=== PATIENT | male | born 1950 | race Caucasian/White ===

== ENCOUNTER 2017-10-11 17:44 | Inpatient (IN) | payer MEDICARE, MEDICAID ==
[2017-10-11] VITALS (8 sets, daily range): BP systolic 103–124; BP diastolic 58–65
[~2017-10-11] VITALS: Ht 167.6 cm; Wt 80.6 kg
[~2017-10-11 17:44] MED LIST: AMLO1CAP59 PO; ASPI-12 PO; BUSP10TA11 PO; CLOP75TA35 PO; DESV100T PO; GABA-338 PO; HYDR-565 PO; HYDR12.522 PO; HYT1T PO; IMD30T PO; LANTUS SQ; LISI40TA4 PO; LORA10TA7 PO; METF500T PO; MORP30TA60 PO; NITR0.4T51 SL; SIN10C PO; TRAZ-91 PO
[2017-10-11 18:34] LABS: BASOPHILS % (AUTO) 0.1 % (0-1); EOSINOPHILS # (AUTO) 0.1 X10'3 (0-0.9); EOSINOPHILS % (AUTO) 1.5 % (0-6); HEMATOCRIT 25.4 % (42.0-52.0); HEMOGLOBIN 7.5 g/dl (14.0-17.9); MEAN CORPUSCULAR HEMOGLOBIN 21.2 PG (27.0-31.0); MEAN CORPUSCULAR HGB CONC 29.6 % (33.0-36.5); MEAN CORPUSCULAR VOLUME 71.7 FL (78-98); MEAN PLATELET VOLUME 9.6 FL (7.4-10.4); MONOCYTES # (AUTO) 0.3 X10'3 (0-0.9); MONOCYTES % (AUTO) 3.2 % (2-12); NEUTROPHILS # (AUTO) 8.3 X10'3 (1.8-7.7); NEUTROPHILS % (AUTO) 85.2 % (42-75); PLATELET COUNT 307 X10'3 (140-440); RED BLOOD COUNT 3.54 X10'6 (4.70-6.10); RED CELL DISTRIBUTION WIDTH 21.7 % (11.5-14.5); WHITE BLOOD COUNT 9.8 X10'3 (4.5-11.0)
[2017-10-11 18:40] LABS: PARTIAL THROMBOPLASTIN TIME 25 SECONDS (22-32); PROTHROMBIN TIME 10.6 SECONDS (9.0-12.0)
[2017-10-11 18:44] LABS: ALANINE AMINOTRANSFERASE 135 U/L (12-78); ALBUMIN 2.3 G/DL (3.4-5.0); ALBUMIN/GLOBULIN RATIO 0.5 (1.1-1.5); ALKALINE PHOSPHATASE 266 IU/L (46-116); ANION GAP 7 (8-16); ASPARTATE AMINO TRANSFERASE 141 U/L (10-37); BILIRUBIN,TOTAL 0.2 MG/DL (0.1-1.0); BLOOD UREA NITROGEN 20 MG/DL (7-18); BUN/CREATININE RATIO 17.4 (5.4-32.0); CALCIUM 8.1 MG/DL (8.5-10.1); CHLORIDE 106 MMOL/L (99-107); CREATININE 1.15 MG/DL (0.60-1.10); GLUCOSE 178 MG/DL (70-104); POTASSIUM 4.3 MMOL/L (3.5-5.1); SODIUM 143 MMOL/L (135-145); TOTAL CARBON DIOXIDE 30.1 MMOL/L (24-32); TOTAL PROTEIN 6.7 G/DL (6.4-8.2); eGFR 64 ML/MIN
[2017-10-11 18:51] LABS: MAGNESIUM 1.6 MG/DL (1.5-2.4)
[2017-10-11] MEDS ORDERED: morphine sulfate 8 MG/ML SYRINGE IV ONE (19:05)
[2017-10-11] MEDS ORDERED: normal saline 1000ML IV soln IVB ONE (19:10)
[2017-10-11] MEDS ORDERED: acetaminophen 325mg tablet PO PRN ×2 (19:40)
[2017-10-11] MEDS ORDERED: magnesium hydroxide 30ml (MOM) UD suspension PO PRN (19:40)
[2017-10-11] MEDS ORDERED: ondansetron/PF 4mg/2ml inj IV PRN (19:40)
[2017-10-11 20:19] LABS: ETHANOL < 0.010 GM/DL (0.0-0.010)
[2017-10-11] MEDS: morphine sulfate 8 MG/ML SYRINGE IV PRN ×3 (21:55→23:03)
[2017-10-11] MEDS ORDERED: nitroGLYCERIN 0.4mg SUBLingual tab SL PRN (23:00)
[2017-10-12] VITALS (25 sets, daily range): BP systolic 96–126; BP diastolic 48–83
[2017-10-12] MEDS: morphine sulfate 8 MG/ML SYRINGE IV PRN ×6 (01:01→22:06)
[2017-10-12 05:31] LABS: BASOPHILS % (AUTO) 0.2 % (0-1); EOSINOPHILS # (AUTO) 0.4 X10'3 (0-0.9); EOSINOPHILS % (AUTO) 2.8 % (0-6); HEMATOCRIT 31.5 % (42.0-52.0); HEMOGLOBIN 9.7 g/dl (14.0-17.9); LYMPHOCYTES # (AUTO) 1.4 X10'3 (1.1-4.8); LYMPHOCYTES % (AUTO) 10.7 % (21-51); MEAN CORPUSCULAR HEMOGLOBIN 23.4 PG (27.0-31.0); MEAN CORPUSCULAR HGB CONC 30.8 % (33.0-36.5); MEAN CORPUSCULAR VOLUME 76.1 FL (78-98); MEAN PLATELET VOLUME 9.7 FL (7.4-10.4); MONOCYTES % (AUTO) 7.7 % (2-12); NEUTROPHILS # (AUTO) 10.2 X10'3 (1.8-7.7); NEUTROPHILS % (AUTO) 78.6 % (42-75); PLATELET COUNT 280 X10'3 (140-440); RED BLOOD COUNT 4.14 X10'6 (4.70-6.10); RED CELL DISTRIBUTION WIDTH 21.8 % (11.5-14.5)
[2017-10-12 05:40] LABS: PARTIAL THROMBOPLASTIN TIME 26 SECONDS (22-32); PROTHROMBIN TIME 10.6 SECONDS (9.0-12.0)
[2017-10-12 05:44] LABS: HEMOGLOBIN A1C 5.7 % (4.5-6.2)
[2017-10-12 06:03] LABS: ALBUMIN 2.3 G/DL (3.4-5.0); ANION GAP 6 (8-16); BLOOD UREA NITROGEN 20 MG/DL (7-18); BUN/CREATININE RATIO 17.2 (5.4-32.0); CALCIUM 7.8 MG/DL (8.5-10.1); CHLORIDE 108 MMOL/L (99-107); CREATININE 1.16 MG/DL (0.60-1.10); GLUCOSE 115 MG/DL (70-104); POTASSIUM 4.3 MMOL/L (3.5-5.1); SODIUM 143 MMOL/L (135-145); TOTAL CARBON DIOXIDE 28.7 MMOL/L (24-32); eGFR 63 ML/MIN
[2017-10-12] MEDS: CefTRIAXone 2gm/NS 100ml IVPB 100 ML IV SCH (07:49)
[2017-10-12] MEDS: busPIRone 5mg tablet PO SCH ×2 (07:49→19:32)
[2017-10-12] MEDS: lisinopril 10 MG tablet PO SCH (07:49)
[2017-10-12] MEDS: loratadine 10mg tablet PO SCH (07:50)
[2017-10-12] MEDS: metFORMIN 500mg tablet PO SCH ×2 (07:50→19:32)
[2017-10-12] MEDS: gabapentin 300mg capsule PO SCH ×3 (07:50→21:04)
[2017-10-12] MEDS: pantoprazole 40mg Tablet.DR PO SCH (07:50)
[2017-10-12] MEDS ORDERED: morphine ER 30mg tablet PO SCH (08:00)
[2017-10-12] MEDS: Terazosin 1mg capsule PO SCH (08:00)
[2017-10-12] MEDS ORDERED: traZODone 50mg tablet PO SCH (08:00)
[2017-10-12] MEDS ORDERED: amLODIPine 5mg tablet PO SCH (08:00)
[2017-10-12] MEDS ORDERED: HYDROchlorothiazide 12.5mg capsule PO SCH (08:00)
[2017-10-12] MEDS ORDERED: morphine ER 100mg tablet PO SCH (08:56)
[2017-10-12] MEDS: azithromycin 250mg tablet PO SCH (10:56)
[2017-10-12 12:03] LABS: TOTAL PROTEIN,BODY FLUID 4.7 G/DL
[2017-10-12] MEDS: isosorbide mononitrate 30mg tab.SR.24H PO SCH (12:20)
[2017-10-12] MEDS: lactobacillus rhamnosus 10,000 MMU CELLS/CAPSULE PO SCH (17:01)
[2017-10-12] MEDS: doxepin 10mg capsule PO SCH (21:04)
[2017-10-12] MEDS: traZODone 50mg tablet PO SCH (21:04)
[2017-10-12] MEDS: Insulin Detemir pen SQ SCH (21:12)
[2017-10-13] VITALS (23 sets, daily range): BP systolic 94–129; BP diastolic 50–67
[2017-10-13] MEDS: morphine sulfate 8 MG/ML SYRINGE IV PRN ×5 (04:36→20:43)
[2017-10-13] MEDS ORDERED: dextrose 50%-water 50ml dispensing syringe IV ONE ×2 (07:30)
[2017-10-13] MEDS: lactobacillus rhamnosus 10,000 MMU CELLS/CAPSULE PO SCH ×2 (08:12→18:04)
[2017-10-13] MEDS: busPIRone 5mg tablet PO SCH ×2 (08:12→20:24)
[2017-10-13] MEDS: CefTRIAXone 2gm/NS 100ml IVPB 100 ML IV SCH (08:12)
[2017-10-13] MEDS: pantoprazole 40mg Tablet.DR PO SCH (08:12)
[2017-10-13] MEDS: loratadine 10mg tablet PO SCH (08:12)
[2017-10-13] MEDS: Terazosin 1mg capsule PO SCH (08:14)
[2017-10-13] MEDS: azithromycin 250mg tablet PO SCH (08:14)
[2017-10-13] MEDS: gabapentin 300mg capsule PO SCH ×3 (08:14→20:25)
[2017-10-13 08:40] LABS: BASOPHILS % (AUTO) 0.1 % (0-1); EOSINOPHILS # (AUTO) 0.3 X10'3 (0-0.9); EOSINOPHILS % (AUTO) 3.2 % (0-6); HEMATOCRIT 28.1 % (42.0-52.0); HEMOGLOBIN 8.6 g/dl (14.0-17.9); LYMPHOCYTES # (AUTO) 1.2 X10'3 (1.1-4.8); LYMPHOCYTES % (AUTO) 12.2 % (21-51); MEAN CORPUSCULAR HEMOGLOBIN 23.3 PG (27.0-31.0); MEAN CORPUSCULAR HGB CONC 30.4 % (33.0-36.5); MEAN CORPUSCULAR VOLUME 76.4 FL (78-98); MEAN PLATELET VOLUME 9.6 FL (7.4-10.4); MONOCYTES # (AUTO) 0.6 X10'3 (0-0.9); MONOCYTES % (AUTO) 6.6 % (2-12); NEUTROPHILS # (AUTO) 7.5 X10'3 (1.8-7.7); NEUTROPHILS % (AUTO) 77.9 % (42-75); PLATELET COUNT 267 X10'3 (140-440); RED BLOOD COUNT 3.68 X10'6 (4.70-6.10); WHITE BLOOD COUNT 9.6 X10'3 (4.5-11.0)
[2017-10-13 08:57] LABS: ALANINE AMINOTRANSFERASE 129 U/L (12-78); ALBUMIN 2.1 G/DL (3.4-5.0); ALBUMIN/GLOBULIN RATIO 0.5 (1.1-1.5); ALKALINE PHOSPHATASE 222 IU/L (46-116); ANION GAP 4 (8-16); ASPARTATE AMINO TRANSFERASE 152 U/L (10-37); BILIRUBIN,TOTAL 0.3 MG/DL (0.1-1.0); BLOOD UREA NITROGEN 22 MG/DL (7-18); BUN/CREATININE RATIO 19.3 (5.4-32.0); CALCIUM 8.3 MG/DL (8.5-10.1); CHLORIDE 110 MMOL/L (99-107); CREATININE 1.14 MG/DL (0.60-1.10); GLUCOSE 95 MG/DL (70-104); POTASSIUM 4.5 MMOL/L (3.5-5.1); SODIUM 146 MMOL/L (135-145); TOTAL CARBON DIOXIDE 31.9 MMOL/L (24-32); TOTAL PROTEIN 6.2 G/DL (6.4-8.2); eGFR 64 ML/MIN
[2017-10-13] MEDS ORDERED: FLU VACC QS2017-18 36MOS UP/PF 60 MCG/0.5 ML SYRINGE IMVAC ONE (10:00)
[2017-10-13] MEDS: metFORMIN 500mg tablet PO SCH ×2 (10:05→20:24)
[2017-10-13] MEDS: lisinopril 10 MG tablet PO SCH (10:05)
[2017-10-13] MEDS: isosorbide mononitrate 30mg tab.SR.24H PO SCH (10:05)
[2017-10-13] MEDS ORDERED: FLUO-1 PO (11:55)
[2017-10-13] MEDS ORDERED: AMLO5TAB16 PO (11:55)
[2017-10-13] MEDS ORDERED: LEVO50TA8 PO (11:55)
[2017-10-13] MEDS ORDERED: ARIP10TA17 PO (11:55)
[2017-10-13] MEDS ORDERED: TRAZ-146 PO (12:05)
[2017-10-13] MEDS ORDERED: TIOT18CA3 INH (12:05)
[2017-10-13] MEDS ORDERED: FERR240T2 PO (12:05)
[2017-10-13] MEDS ORDERED: PREG150C PO (12:05)
[2017-10-13] MEDS: traZODone 50mg tablet PO SCH (20:25)
[2017-10-13] MEDS: doxepin 10mg capsule PO SCH (20:25)
[2017-10-13] MEDS: Insulin Detemir pen SQ SCH (20:35)
[2017-10-14] VITALS (17 sets, daily range): BP systolic 105–134; BP diastolic 55–68
[2017-10-14] MEDS: morphine sulfate 8 MG/ML SYRINGE IV PRN ×5 (02:46→20:53)
[2017-10-14 05:25] LABS: BASOPHILS % (AUTO) 0.2 % (0-1); EOSINOPHILS # (AUTO) 0.3 X10'3 (0-0.9); EOSINOPHILS % (AUTO) 3.8 % (0-6); HEMATOCRIT 26.2 % (42.0-52.0); LYMPHOCYTES # (AUTO) 0.9 X10'3 (1.1-4.8); LYMPHOCYTES % (AUTO) 12.1 % (21-51); MEAN CORPUSCULAR HEMOGLOBIN 23.3 PG (27.0-31.0); MEAN CORPUSCULAR HGB CONC 30.5 % (33.0-36.5); MEAN CORPUSCULAR VOLUME 76.4 FL (78-98); MEAN PLATELET VOLUME 10.1 FL (7.4-10.4); MONOCYTES # (AUTO) 0.6 X10'3 (0-0.9); MONOCYTES % (AUTO) 7.9 % (2-12); NEUTROPHILS # (AUTO) 5.7 X10'3 (1.8-7.7); PLATELET COUNT 243 X10'3 (140-440); RED BLOOD COUNT 3.43 X10'6 (4.70-6.10); RED CELL DISTRIBUTION WIDTH 21.9 % (11.5-14.5); WHITE BLOOD COUNT 7.5 X10'3 (4.5-11.0)
[2017-10-14 05:39] LABS: ALANINE AMINOTRANSFERASE 118 U/L (12-78); ALBUMIN 1.8 G/DL (3.4-5.0); ALBUMIN/GLOBULIN RATIO 0.5 (1.1-1.5); ALKALINE PHOSPHATASE 208 IU/L (46-116); ANION GAP 6 (8-16); ASPARTATE AMINO TRANSFERASE 143 U/L (10-37); BILIRUBIN,TOTAL 0.3 MG/DL (0.1-1.0); BLOOD UREA NITROGEN 21 MG/DL (7-18); BUN/CREATININE RATIO 21.4 (5.4-32.0); CALCIUM 7.8 MG/DL (8.5-10.1); CHLORIDE 109 MMOL/L (99-107); CREATININE 0.98 MG/DL (0.60-1.10); GLUCOSE 110 MG/DL (70-104); POTASSIUM 3.8 MMOL/L (3.5-5.1); SODIUM 144 MMOL/L (135-145); TOTAL CARBON DIOXIDE 29.4 MMOL/L (24-32); TOTAL PROTEIN 5.8 G/DL (6.4-8.2); eGFR 77 ML/MIN
[2017-10-14] MEDS: CefTRIAXone 2gm/NS 100ml IVPB 100 ML IV SCH (08:48)
[2017-10-14] MEDS: isosorbide mononitrate 30mg tab.SR.24H PO SCH (08:49)
[2017-10-14] MEDS: pantoprazole 40mg Tablet.DR PO SCH (08:49)
[2017-10-14] MEDS: metFORMIN 500mg tablet PO SCH ×2 (08:49→19:24)
[2017-10-14] MEDS: loratadine 10mg tablet PO SCH (08:49)
[2017-10-14] MEDS: lactobacillus rhamnosus 10,000 MMU CELLS/CAPSULE PO SCH ×2 (08:49→16:41)
[2017-10-14] MEDS: busPIRone 5mg tablet PO SCH ×2 (08:49→19:24)
[2017-10-14] MEDS: azithromycin 250mg tablet PO SCH (08:49)
[2017-10-14] MEDS: lisinopril 10 MG tablet PO SCH (08:49)
[2017-10-14] MEDS: Terazosin 1mg capsule PO SCH (08:49)
[2017-10-14] MEDS: gabapentin 300mg capsule PO SCH ×3 (08:49→20:53)
[2017-10-14 11:43] LABS: % IRON SATURATION 4 % (11-46); IRON 11 UG/DL (53-167); TOTAL IRON BINDING CAPACITY 285 UG/DL (259-388)
[2017-10-14] MEDS ORDERED: dextrose 50%-water 50ml dispensing syringe IV PRN ×2 (15:45)
[2017-10-14] MEDS: traZODone 50mg tablet PO SCH (20:53)
[2017-10-14] MEDS: doxepin 10mg capsule PO SCH (21:05)
[2017-10-14] MEDS: Insulin Detemir pen SQ SCH (21:17)
[2017-10-15] MEDS: morphine sulfate 8 MG/ML SYRINGE IV PRN ×2 (00:58→09:07)
[2017-10-15 03:00] VITALS: BP 128/62
[2017-10-15 05:09] LABS: BASOPHILS % (AUTO) 0 % (0-1); EOSINOPHILS # (AUTO) 0.2 X10'3 (0-0.9); EOSINOPHILS % (AUTO) 3.6 % (0-6); HEMATOCRIT 27.3 % (42.0-52.0); HEMOGLOBIN 8.3 g/dl (14.0-17.9); LYMPHOCYTES # (AUTO) 0.7 X10'3 (1.1-4.8); MEAN CORPUSCULAR HEMOGLOBIN 23.1 PG (27.0-31.0); MEAN CORPUSCULAR HGB CONC 30.5 % (33.0-36.5); MEAN CORPUSCULAR VOLUME 75.8 FL (78-98); MEAN PLATELET VOLUME 9.5 FL (7.4-10.4); MONOCYTES # (AUTO) 0.5 X10'3 (0-0.9); MONOCYTES % (AUTO) 7.5 % (2-12); NEUTROPHILS # (AUTO) 5.1 X10'3 (1.8-7.7); NEUTROPHILS % (AUTO) 77.9 % (42-75); PLATELET COUNT 249 X10'3 (140-440); RED CELL DISTRIBUTION WIDTH 21.2 % (11.5-14.5); WHITE BLOOD COUNT 6.5 X10'3 (4.5-11.0)
[2017-10-15 05:29] LABS: ALANINE AMINOTRANSFERASE 125 U/L (12-78); ALBUMIN/GLOBULIN RATIO 0.5 (1.1-1.5); ALKALINE PHOSPHATASE 224 IU/L (46-116); ANION GAP 3 (8-16); ASPARTATE AMINO TRANSFERASE 157 U/L (10-37); BILIRUBIN,TOTAL 0.4 MG/DL (0.1-1.0); BLOOD UREA NITROGEN 20 MG/DL (7-18); BUN/CREATININE RATIO 19.2 (5.4-32.0); CALCIUM 8.1 MG/DL (8.5-10.1); CHLORIDE 109 MMOL/L (99-107); CREATININE 1.04 MG/DL (0.60-1.10); GLUCOSE 109 MG/DL (70-104); POTASSIUM 3.7 MMOL/L (3.5-5.1); SODIUM 144 MMOL/L (135-145); TOTAL CARBON DIOXIDE 32.4 MMOL/L (24-32); TOTAL PROTEIN 6.4 G/DL (6.4-8.2); eGFR 71 ML/MIN
[2017-10-15 06:00] VITALS: BP 136/73
[2017-10-15] MEDS: gabapentin 300mg capsule PO SCH ×3 (07:33→21:56)
[2017-10-15] MEDS: isosorbide mononitrate 30mg tab.SR.24H PO SCH (07:33)
[2017-10-15] MEDS: Terazosin 1mg capsule PO SCH (07:33)
[2017-10-15] MEDS: lactobacillus rhamnosus 10,000 MMU CELLS/CAPSULE PO SCH ×2 (07:33→17:23)
[2017-10-15] MEDS: pantoprazole 40mg Tablet.DR PO SCH (07:33)
[2017-10-15] MEDS: azithromycin 250mg tablet PO SCH (07:33)
[2017-10-15] MEDS: loratadine 10mg tablet PO SCH (07:33)
[2017-10-15] MEDS: lisinopril 10 MG tablet PO SCH (07:33)
[2017-10-15] MEDS: metFORMIN 500mg tablet PO SCH ×2 (07:33→21:57)
[2017-10-15] MEDS: busPIRone 5mg tablet PO SCH ×2 (07:33→21:56)
[2017-10-15 11:00] VITALS: BP 108/53
[2017-10-15 15:00] VITALS: BP 121/59
[2017-10-15 18:00] VITALS: BP 134/67
[2017-10-15] MEDS: doxepin 10mg capsule PO SCH (21:56)
[2017-10-15] MEDS: traZODone 50mg tablet PO SCH (21:57)
[2017-10-15 22:00] VITALS: BP 126/66
[2017-10-15] MEDS: Insulin Detemir pen SQ SCH (22:13)
[2017-10-16 02:00] VITALS: BP 131/66
[2017-10-16 05:23] LABS: BASOPHILS % (AUTO) 0.1 % (0-1); EOSINOPHILS # (AUTO) 0.4 X10'3 (0-0.9); HEMATOCRIT 28.3 % (42.0-52.0); HEMOGLOBIN 8.6 g/dl (14.0-17.9); LYMPHOCYTES % (AUTO) 18.5 % (21-51); MEAN CORPUSCULAR HEMOGLOBIN 22.8 PG (27.0-31.0); MEAN CORPUSCULAR HGB CONC 30.3 % (33.0-36.5); MEAN CORPUSCULAR VOLUME 75.4 FL (78-98); MEAN PLATELET VOLUME 9.6 FL (7.4-10.4); MONOCYTES # (AUTO) 0.6 X10'3 (0-0.9); MONOCYTES % (AUTO) 9.9 % (2-12); NEUTROPHILS # (AUTO) 3.7 X10'3 (1.8-7.7); NEUTROPHILS % (AUTO) 64.5 % (42-75); PLATELET COUNT 272 X10'3 (140-440); RED BLOOD COUNT 3.75 X10'6 (4.70-6.10); RED CELL DISTRIBUTION WIDTH 20.8 % (11.5-14.5); WHITE BLOOD COUNT 5.7 X10'3 (4.5-11.0)
[2017-10-16 05:32] LABS: ALANINE AMINOTRANSFERASE 138 U/L (12-78); ALBUMIN/GLOBULIN RATIO 0.4 (1.1-1.5); ALKALINE PHOSPHATASE 237 IU/L (46-116); ANION GAP 1 (8-16); ASPARTATE AMINO TRANSFERASE 177 U/L (10-37); BILIRUBIN,TOTAL 0.4 MG/DL (0.1-1.0); BLOOD UREA NITROGEN 19 MG/DL (7-18); BUN/CREATININE RATIO 18.8 (5.4-32.0); CHLORIDE 108 MMOL/L (99-107); CREATININE 1.01 MG/DL (0.60-1.10); GLUCOSE 77 MG/DL (70-104); POTASSIUM 4.1 MMOL/L (3.5-5.1); SODIUM 143 MMOL/L (135-145); TOTAL CARBON DIOXIDE 34.5 MMOL/L (24-32); TOTAL PROTEIN 6.7 G/DL (6.4-8.2); eGFR 74 ML/MIN
[2017-10-16 06:00] VITALS: BP 126/60
[2017-10-16] MEDS: gabapentin 300mg capsule PO SCH ×3 (07:33→19:37)
[2017-10-16] MEDS: lisinopril 10 MG tablet PO SCH (07:33)
[2017-10-16] MEDS: lactobacillus rhamnosus 10,000 MMU CELLS/CAPSULE PO SCH ×2 (07:33→17:28)
[2017-10-16] MEDS: pantoprazole 40mg Tablet.DR PO SCH (07:33)
[2017-10-16] MEDS: metFORMIN 500mg tablet PO SCH ×2 (07:33→19:37)
[2017-10-16] MEDS: Terazosin 1mg capsule PO SCH (07:33)
[2017-10-16] MEDS: loratadine 10mg tablet PO SCH (07:33)
[2017-10-16] MEDS: isosorbide mononitrate 30mg tab.SR.24H PO SCH (07:33)
[2017-10-16] MEDS: busPIRone 5mg tablet PO SCH ×2 (07:37→19:38)
[2017-10-16 11:00] VITALS: BP 144/57
[2017-10-16 15:00] VITALS: BP 127/66
[2017-10-16 18:00] VITALS: BP 130/64
[2017-10-16] MEDS: doxepin 10mg capsule PO SCH (19:37)
[2017-10-16 22:00] VITALS: BP 135/67
[2017-10-16] MEDS: traZODone 50mg tablet PO SCH (22:20)
[2017-10-16] MEDS: Insulin Detemir pen SQ SCH (22:37)
[2017-10-17] VITALS (8 sets, daily range): BP systolic 110–135; BP diastolic 58–73
[2017-10-17 05:35] LABS: ALANINE AMINOTRANSFERASE 147 U/L (12-78); ALBUMIN 2.1 G/DL (3.4-5.0); ALBUMIN/GLOBULIN RATIO 0.4 (1.1-1.5); ALKALINE PHOSPHATASE 255 IU/L (46-116); ANION GAP 3 (8-16); ASPARTATE AMINO TRANSFERASE 193 U/L (10-37); BILIRUBIN,TOTAL 0.4 MG/DL (0.1-1.0); BLOOD UREA NITROGEN 19 MG/DL (7-18); BUN/CREATININE RATIO 20.4 (5.4-32.0); CALCIUM 8.1 MG/DL (8.5-10.1); CHLORIDE 106 MMOL/L (99-107); CREATININE 0.93 MG/DL (0.60-1.10); GLUCOSE 80 MG/DL (70-104); POTASSIUM 4.2 MMOL/L (3.5-5.1); SODIUM 142 MMOL/L (135-145); TOTAL CARBON DIOXIDE 32.7 MMOL/L (24-32); eGFR 81 ML/MIN
[2017-10-17 05:44] LABS: BASOPHILS # (AUTO) 0.1 X10'3 (0-0.2); BASOPHILS % (AUTO) 0.9 % (0-1); EOSINOPHILS # (AUTO) 0.3 X10'3 (0-0.9); EOSINOPHILS % (AUTO) 5.1 % (0-6); HEMATOCRIT 29.5 % (42.0-52.0); HEMOGLOBIN 8.9 g/dl (14.0-17.9); LYMPHOCYTES % (AUTO) 16.6 % (21-51); MEAN CORPUSCULAR HEMOGLOBIN 22.7 PG (27.0-31.0); MEAN CORPUSCULAR HGB CONC 30.2 % (33.0-36.5); MEAN CORPUSCULAR VOLUME 75.2 FL (78-98); MEAN PLATELET VOLUME 9.4 FL (7.4-10.4); MONOCYTES # (AUTO) 0.5 X10'3 (0-0.9); MONOCYTES % (AUTO) 8.9 % (2-12); NEUTROPHILS % (AUTO) 68.5 % (42-75); PLATELET COUNT 293 X10'3 (140-440); RED BLOOD COUNT 3.92 X10'6 (4.70-6.10); RED CELL DISTRIBUTION WIDTH 21.4 % (11.5-14.5); WHITE BLOOD COUNT 5.9 X10'3 (4.5-11.0)
[2017-10-17] MEDS: loratadine 10mg tablet PO SCH (07:32)
[2017-10-17] MEDS: lisinopril 10 MG tablet PO SCH (07:33)
[2017-10-17] MEDS: isosorbide mononitrate 30mg tab.SR.24H PO SCH (07:33)
[2017-10-17] MEDS: Terazosin 1mg capsule PO SCH (07:33)
[2017-10-17] MEDS: lactobacillus rhamnosus 10,000 MMU CELLS/CAPSULE PO SCH ×2 (07:33→17:52)
[2017-10-17] MEDS: pantoprazole 40mg Tablet.DR PO SCH (07:33)
[2017-10-17] MEDS: metFORMIN 500mg tablet PO SCH ×2 (07:33→21:14)
[2017-10-17] MEDS: gabapentin 300mg capsule PO SCH ×3 (07:33→21:14)
[2017-10-17] MEDS: busPIRone 5mg tablet PO SCH ×2 (07:34→21:14)
[2017-10-17 10:52] LABS: OCCULT BLOOD STOOL POSITIVE (Neg)
[2017-10-17] MEDS ORDERED: tPA-cathflo 2mg/2ml IV flush 10 MG in normal saline 100ml IV soln 40 ML ICATH ONE (15:10)
[2017-10-17 16:48] LABS: GLUCOSE,BODY FLUID 99 MG/DL; LDH,BODY FLUID 236 U/L
[2017-10-17 17:07] LABS: BF RBC COUNT 8550 /CU MM; BF WBC COUNT 1800 /CU MM (0-1000); BFAPPEAR CLOUDY; BFCOLOR YELLOW; BFVOLUME 65 ML
[2017-10-17 17:20] LABS: EOSINOPHILS,BODY FLUID 6 %; LYMPHOCYTES,BODY FLUID 16 %; MONOCYTES,BODY FLUID 28 %; NEUTROPHILS,BODY FLUID 50 %
[2017-10-17 17:21] LABS: BF MESOTHELIAL CELLS FEW
[2017-10-17] MEDS: Insulin Detemir pen SQ SCH ×2 (21:00→22:18)
[2017-10-17] MEDS: doxepin 10mg capsule PO SCH (21:15)
[2017-10-17] MEDS: traZODone 50mg tablet PO SCH (22:19)
[2017-10-18 03:00] VITALS: BP 127/73
[2017-10-18 05:50] LABS: BASOPHILS % (AUTO) 0.3 % (0-1); EOSINOPHILS # (AUTO) 0.2 X10'3 (0-0.9); HEMATOCRIT 27.1 % (42.0-52.0); HEMOGLOBIN 8.2 g/dl (14.0-17.9); LYMPHOCYTES % (AUTO) 18.6 % (21-51); MEAN CORPUSCULAR HEMOGLOBIN 22.6 PG (27.0-31.0); MEAN CORPUSCULAR HGB CONC 30.1 % (33.0-36.5); MONOCYTES # (AUTO) 0.5 X10'3 (0-0.9); MONOCYTES % (AUTO) 9.5 % (2-12); NEUTROPHILS # (AUTO) 3.6 X10'3 (1.8-7.7); NEUTROPHILS % (AUTO) 67.6 % (42-75); PLATELET COUNT 300 X10'3 (140-440); RED BLOOD COUNT 3.61 X10'6 (4.70-6.10); RED CELL DISTRIBUTION WIDTH 20.8 % (11.5-14.5); WHITE BLOOD COUNT 5.4 X10'3 (4.5-11.0)
[2017-10-18 05:59] LABS: ALANINE AMINOTRANSFERASE 132 U/L (12-78); ALBUMIN 1.9 G/DL (3.4-5.0); ALBUMIN/GLOBULIN RATIO 0.4 (1.1-1.5); ALKALINE PHOSPHATASE 242 IU/L (46-116); ANION GAP 5 (8-16); ASPARTATE AMINO TRANSFERASE 175 U/L (10-37); BILIRUBIN,TOTAL 0.4 MG/DL (0.1-1.0); BLOOD UREA NITROGEN 19 MG/DL (7-18); BUN/CREATININE RATIO 22.4 (5.4-32.0); CALCIUM 8.1 MG/DL (8.5-10.1); CHLORIDE 107 MMOL/L (99-107); CREATININE 0.85 MG/DL (0.60-1.10); GLUCOSE 79 MG/DL (70-104); POTASSIUM 4.1 MMOL/L (3.5-5.1); SODIUM 144 MMOL/L (135-145); TOTAL CARBON DIOXIDE 32.1 MMOL/L (24-32); TOTAL PROTEIN 6.2 G/DL (6.4-8.2); eGFR 90 ML/MIN
[2017-10-18 06:00] VITALS: BP 138/70
[2017-10-18] MEDS: lisinopril 10 MG tablet PO SCH (08:11)
[2017-10-18] MEDS: pantoprazole 40mg Tablet.DR PO SCH (08:11)
[2017-10-18] MEDS: Terazosin 1mg capsule PO SCH (08:11)
[2017-10-18] MEDS: gabapentin 300mg capsule PO SCH ×3 (08:11→21:26)
[2017-10-18] MEDS: busPIRone 5mg tablet PO SCH ×2 (08:11→20:06)
[2017-10-18] MEDS: lactobacillus rhamnosus 10,000 MMU CELLS/CAPSULE PO SCH ×2 (08:11→17:19)
[2017-10-18] MEDS: metFORMIN 500mg tablet PO SCH ×2 (08:11→20:06)
[2017-10-18] MEDS: loratadine 10mg tablet PO SCH (08:22)
[2017-10-18] MEDS: isosorbide mononitrate 30mg tab.SR.24H PO SCH (08:22)
[2017-10-18 11:00] VITALS: BP 114/59
[2017-10-18 14:33] LABS: % IRON SATURATION 5 % (11-46); IRON 13 UG/DL (53-167); TOTAL IRON BINDING CAPACITY 286 UG/DL (259-388)
[2017-10-18 15:00] VITALS: BP 155/59
[2017-10-18 19:00] VITALS: BP 124/59
[2017-10-18] MEDS: Insulin Detemir pen SQ SCH ×2 (21:00)
[2017-10-18] MEDS: traZODone 50mg tablet PO SCH (21:26)
[2017-10-18] MEDS: doxepin 10mg capsule PO SCH (21:26)
[2017-10-18] MEDS: diatr meglu/diatrizoate 30ml oral sol.-(3 dose) bottle PO SCH (21:26)
[2017-10-18 23:00] VITALS: BP 142/69
[2017-10-19 03:00] VITALS: BP 139/63
[2017-10-19 06:30] VITALS: BP 138/69
[2017-10-19 07:05] LABS: BASOPHILS % (AUTO) 0.2 % (0-1); EOSINOPHILS # (AUTO) 0.2 X10'3 (0-0.9); EOSINOPHILS % (AUTO) 4.2 % (0-6); HEMATOCRIT 29.5 % (42.0-52.0); HEMOGLOBIN 8.9 g/dl (14.0-17.9); LYMPHOCYTES # (AUTO) 1.1 X10'3 (1.1-4.8); LYMPHOCYTES % (AUTO) 19.9 % (21-51); MEAN CORPUSCULAR HEMOGLOBIN 22.5 PG (27.0-31.0); MEAN CORPUSCULAR HGB CONC 30.3 % (33.0-36.5); MEAN CORPUSCULAR VOLUME 74.4 FL (78-98); MONOCYTES # (AUTO) 0.4 X10'3 (0-0.9); MONOCYTES % (AUTO) 7.6 % (2-12); NEUTROPHILS # (AUTO) 3.8 X10'3 (1.8-7.7); NEUTROPHILS % (AUTO) 68.1 % (42-75); PLATELET COUNT 322 X10'3 (140-440); RED BLOOD COUNT 3.96 X10'6 (4.70-6.10); WHITE BLOOD COUNT 5.5 X10'3 (4.5-11.0)
[2017-10-19 07:45] LABS: ALBUMIN 2.1 G/DL (3.4-5.0); ANION GAP 3 (8-16); BLOOD UREA NITROGEN 18 MG/DL (7-18); BUN/CREATININE RATIO 16.8 (5.4-32.0); CALCIUM 8.3 MG/DL (8.5-10.1); CHLORIDE 105 MMOL/L (99-107); CREATININE 1.07 MG/DL (0.60-1.10); GLUCOSE 101 MG/DL (70-104); POTASSIUM 4.4 MMOL/L (3.5-5.1); SODIUM 143 MMOL/L (135-145); TOTAL CARBON DIOXIDE 34.7 MMOL/L (24-32); eGFR 69 ML/MIN
[2017-10-19] MEDS: metFORMIN 500mg tablet PO SCH (07:46)
[2017-10-19] MEDS: loratadine 10mg tablet PO SCH (07:46)
[2017-10-19] MEDS: diatr meglu/diatrizoate 30ml oral sol.-(3 dose) bottle PO SCH ×2 (07:46→11:11)
[2017-10-19] MEDS: busPIRone 5mg tablet PO SCH ×2 (07:46→20:55)
[2017-10-19] MEDS: gabapentin 300mg capsule PO SCH ×3 (07:46→20:55)
[2017-10-19] MEDS: pantoprazole 40mg Tablet.DR PO SCH (07:46)
[2017-10-19] MEDS: lactobacillus rhamnosus 10,000 MMU CELLS/CAPSULE PO SCH ×2 (07:46→16:35)
[2017-10-19] MEDS: isosorbide mononitrate 30mg tab.SR.24H PO SCH (07:46)
[2017-10-19] MEDS: Terazosin 1mg capsule PO SCH (07:46)
[2017-10-19] MEDS: lisinopril 10 MG tablet PO SCH (07:46)
[2017-10-19] MEDS ORDERED: iohexol 300mg/ml 100ml inj. ONE (10:23)
[2017-10-19] MEDS ORDERED: PEG 3350/Na sulf,bicarb,Cl/KCl oral sol 4 liter bottle PO ONE (11:25)
[2017-10-19 11:30] VITALS: BP 117/60
[2017-10-19] MEDS: MESSAGE TO NURSING PO SCH ×2 (11:56→20:00)
[2017-10-19 16:20] VITALS: BP 122/63
[2017-10-19 19:00] VITALS: BP 129/69
[2017-10-19] MEDS: doxepin 10mg capsule PO SCH (20:55)
[2017-10-19] MEDS: traZODone 50mg tablet PO SCH (20:55)
[2017-10-19] MEDS: Insulin Detemir pen SQ SCH ×2 (21:00)
[2017-10-19 23:00] VITALS: BP 137/71
[2017-10-20] VITALS (18 sets, daily range): BP systolic 104–143; BP diastolic 5–88
[2017-10-20 05:10] LABS: BASOPHILS % (AUTO) 0.6 % (0-1); EOSINOPHILS # (AUTO) 0.2 X10'3 (0-0.9); EOSINOPHILS % (AUTO) 3.8 % (0-6); HEMATOCRIT 29.6 % (42.0-52.0); LYMPHOCYTES # (AUTO) 0.7 X10'3 (1.1-4.8); LYMPHOCYTES % (AUTO) 12.9 % (21-51); MEAN CORPUSCULAR HEMOGLOBIN 22.4 PG (27.0-31.0); MEAN CORPUSCULAR HGB CONC 30.5 % (33.0-36.5); MEAN CORPUSCULAR VOLUME 73.4 FL (78-98); MEAN PLATELET VOLUME 9.2 FL (7.4-10.4); MONOCYTES # (AUTO) 0.4 X10'3 (0-0.9); MONOCYTES % (AUTO) 7.6 % (2-12); NEUTROPHILS # (AUTO) 3.9 X10'3 (1.8-7.7); NEUTROPHILS % (AUTO) 75.1 % (42-75); PLATELET COUNT 318 X10'3 (140-440); RED BLOOD COUNT 4.03 X10'6 (4.70-6.10); RED CELL DISTRIBUTION WIDTH 21.8 % (11.5-14.5); WHITE BLOOD COUNT 5.2 X10'3 (4.5-11.0)
[2017-10-20 05:32] LABS: ALBUMIN 2.2 G/DL (3.4-5.0); ANION GAP 4 (8-16); BLOOD UREA NITROGEN 13 MG/DL (7-18); BUN/CREATININE RATIO 16.5 (5.4-32.0); CALCIUM 8.2 MG/DL (8.5-10.1); CHLORIDE 104 MMOL/L (99-107); CREATININE 0.79 MG/DL (0.60-1.10); GLUCOSE 113 MG/DL (70-104); POTASSIUM 4.1 MMOL/L (3.5-5.1); SODIUM 141 MMOL/L (135-145); TOTAL CARBON DIOXIDE 32.7 MMOL/L (24-32); eGFR > 90 ML/MIN
[2017-10-20] MEDS: isosorbide mononitrate 30mg tab.SR.24H PO SCH (07:49)
[2017-10-20] MEDS: lactobacillus rhamnosus 10,000 MMU CELLS/CAPSULE PO SCH ×2 (07:49→17:30)
[2017-10-20] MEDS: loratadine 10mg tablet PO SCH (07:49)
[2017-10-20] MEDS: Terazosin 1mg capsule PO SCH (07:49)
[2017-10-20] MEDS: lisinopril 10 MG tablet PO SCH (07:49)
[2017-10-20] MEDS: pantoprazole 40mg Tablet.DR PO SCH (07:49)
[2017-10-20] MEDS: busPIRone 5mg tablet PO SCH ×2 (07:49→20:27)
[2017-10-20] MEDS: gabapentin 300mg capsule PO SCH ×3 (07:49→20:27)
[2017-10-20] MEDS: MESSAGE TO NURSING PO SCH ×2 (08:00→20:00)
[2017-10-20] MEDS ORDERED: normal saline 1000ml 1,000 ML IV SCH (15:17)
[2017-10-20] MEDS ORDERED: simethicone 40mg/0.6ml oral drops 30ml MC ONE (15:20)
[2017-10-20] MEDS ORDERED: fentaNYL/PF 50MCG/1 ML 2ML syringe IV PRN (15:20)
[2017-10-20] MEDS ORDERED: MIDAZolam 5mg/5ml vial IV PRN (15:20)
[2017-10-20] MEDS ORDERED: fentaNYL/PF 50MCG/1 ML 2ML syringe ONE (15:26)
[2017-10-20] MEDS ORDERED: MIDAZolam 1mg/ml 10ml vial ONE (15:26)
[2017-10-20] MEDS ORDERED: LIDOcaine Viscous 15ml cup ONE (16:25)
[2017-10-20] MEDS: traZODone 50mg tablet PO SCH (20:27)
[2017-10-20] MEDS: doxepin 10mg capsule PO SCH (20:27)
[2017-10-20] MEDS: Insulin Detemir pen SQ SCH (21:00)
[2017-10-21 03:00] VITALS: BP 133/65
[2017-10-21 06:05] LABS: BASOPHILS % (AUTO) 0.4 % (0-1); EOSINOPHILS # (AUTO) 0.1 X10'3 (0-0.9); EOSINOPHILS % (AUTO) 2.8 % (0-6); HEMATOCRIT 28.2 % (42.0-52.0); HEMOGLOBIN 8.5 g/dl (14.0-17.9); LYMPHOCYTES # (AUTO) 0.9 X10'3 (1.1-4.8); LYMPHOCYTES % (AUTO) 17.8 % (21-51); MEAN CORPUSCULAR HEMOGLOBIN 22.3 PG (27.0-31.0); MEAN CORPUSCULAR HGB CONC 30.2 % (33.0-36.5); MEAN CORPUSCULAR VOLUME 73.6 FL (78-98); MEAN PLATELET VOLUME 9.2 FL (7.4-10.4); MONOCYTES # (AUTO) 0.4 X10'3 (0-0.9); MONOCYTES % (AUTO) 7.4 % (2-12); NEUTROPHILS # (AUTO) 3.5 X10'3 (1.8-7.7); NEUTROPHILS % (AUTO) 71.6 % (42-75); PLATELET COUNT 340 X10'3 (140-440); RED BLOOD COUNT 3.83 X10'6 (4.70-6.10); RED CELL DISTRIBUTION WIDTH 21.4 % (11.5-14.5); WHITE BLOOD COUNT 4.9 X10'3 (4.5-11.0)
[2017-10-21 06:24] LABS: ALBUMIN 2.1 G/DL (3.4-5.0); ANION GAP 3 (8-16); BLOOD UREA NITROGEN 11 MG/DL (7-18); BUN/CREATININE RATIO 12.2 (5.4-32.0); CALCIUM 7.9 MG/DL (8.5-10.1); CHLORIDE 107 MMOL/L (99-107); GLUCOSE 88 MG/DL (70-104); POTASSIUM 4.1 MMOL/L (3.5-5.1); SODIUM 145 MMOL/L (135-145); TOTAL CARBON DIOXIDE 34.7 MMOL/L (24-32); eGFR 84 ML/MIN
[2017-10-21 07:00] VITALS: BP 135/69
[2017-10-21] MEDS: loratadine 10mg tablet PO SCH (07:56)
[2017-10-21] MEDS: busPIRone 5mg tablet PO SCH ×2 (07:56→20:44)
[2017-10-21] MEDS: isosorbide mononitrate 30mg tab.SR.24H PO SCH (07:57)
[2017-10-21] MEDS: lisinopril 10 MG tablet PO SCH (07:57)
[2017-10-21] MEDS: pantoprazole 40mg Tablet.DR PO SCH (07:57)
[2017-10-21] MEDS: gabapentin 300mg capsule PO SCH ×3 (07:57→20:45)
[2017-10-21] MEDS: Terazosin 1mg capsule PO SCH (07:57)
[2017-10-21] MEDS: lactobacillus rhamnosus 10,000 MMU CELLS/CAPSULE PO SCH ×2 (07:58→17:30)
[2017-10-21] MEDS: MESSAGE TO NURSING PO SCH ×2 (08:00→20:00)
[2017-10-21 11:00] VITALS: BP 112/61
[2017-10-21 15:00] VITALS: BP 103/54
[2017-10-21 19:00] VITALS: BP 123/60
[2017-10-21] MEDS: doxepin 10mg capsule PO SCH (20:44)
[2017-10-21] MEDS: metFORMIN 500mg tablet PO SCH (20:44)
[2017-10-21] MEDS: traZODone 50mg tablet PO SCH (20:45)
[2017-10-21] MEDS: Insulin Detemir pen SQ SCH (20:49)
[2017-10-21 23:00] VITALS: BP 139/72
[2017-10-22 03:00] VITALS: BP 117/60
[2017-10-22 05:47] LABS: BASOPHILS # (AUTO) 0.1 X10'3 (0-0.2); BASOPHILS % (AUTO) 1.1 % (0-1); EOSINOPHILS # (AUTO) 0.2 X10'3 (0-0.9); EOSINOPHILS % (AUTO) 3.8 % (0-6); HEMATOCRIT 26.9 % (42.0-52.0); HEMOGLOBIN 8.1 g/dl (14.0-17.9); LYMPHOCYTES # (AUTO) 1.1 X10'3 (1.1-4.8); LYMPHOCYTES % (AUTO) 17.7 % (21-51); MEAN CORPUSCULAR HGB CONC 30.1 % (33.0-36.5); MEAN PLATELET VOLUME 8.7 FL (7.4-10.4); MONOCYTES # (AUTO) 0.5 X10'3 (0-0.9); NEUTROPHILS # (AUTO) 4.1 X10'3 (1.8-7.7); NEUTROPHILS % (AUTO) 68.4 % (42-75); PLATELET COUNT 352 X10'3 (140-440); RED BLOOD COUNT 3.69 X10'6 (4.70-6.10); RED CELL DISTRIBUTION WIDTH 21.6 % (11.5-14.5)
[2017-10-22 06:00] VITALS: BP 140/71
[2017-10-22 07:26] LABS: ALBUMIN 1.9 G/DL (3.4-5.0); ANION GAP 4 (8-16); BLOOD UREA NITROGEN 11 MG/DL (7-18); CALCIUM 7.8 MG/DL (8.5-10.1); CHLORIDE 106 MMOL/L (99-107); GLUCOSE 97 MG/DL (70-104); SODIUM 143 MMOL/L (135-145); TOTAL CARBON DIOXIDE 32.9 MMOL/L (24-32); eGFR 75 ML/MIN
[2017-10-22] MEDS: gabapentin 300mg capsule PO SCH (08:44)
[2017-10-22] MEDS: pantoprazole 40mg Tablet.DR PO SCH (08:44)
[2017-10-22] MEDS: Terazosin 1mg capsule PO SCH (08:44)
[2017-10-22] MEDS: loratadine 10mg tablet PO SCH (08:44)
[2017-10-22] MEDS: busPIRone 5mg tablet PO SCH (08:44)
[2017-10-22] MEDS: isosorbide mononitrate 30mg tab.SR.24H PO SCH (08:45)
[2017-10-22] MEDS: lactobacillus rhamnosus 10,000 MMU CELLS/CAPSULE PO SCH (08:45)
[2017-10-22] MEDS: lisinopril 10 MG tablet PO SCH (08:45)
[2017-10-22] MEDS: metFORMIN 500mg tablet PO SCH (08:45)
[2017-10-22 11:00] VITALS: BP 122/61
[2017-10-22] MEDS ORDERED: LISI10TA4 PO (12:36)
[2017-10-23] MEDS ORDERED: LACTOBACILLUS RHAMNOSUS GG 15 billion unit sprinkle caps PO SCH (07:30)
== END 2017-10-22 13:55 | disposition home or self-care (01) | DRG 199 ==
LOC: ER 17:44 → ED HOLD 19:53 → CICU 2S 23:20 → PCU 3S 10-14 12:10
PROVIDERS: ADMIT Family Medicine; ATTEND Internal Medicine Critical Care Medicine
PROC: 5A09357 Assistance with Respiratory Ventilation, Less than 24 Consecutive Hours, Continuous Positive Airway Pressure (ICD-10-PCS; 2017-10-11)
PROC: 30233N1 Transfusion of Nonautologous Red Blood Cells into Peripheral Vein, Percutaneous Approach (ICD-10-PCS; 2017-10-11)
PROC: 0W9930Z Drainage of Right Pleural Cavity with Drainage Device, Percutaneous Approach (ICD-10-PCS; principal; 2017-10-17)
PROC: 3E0L3GC Introduction of Other Therapeutic Substance into Pleural Cavity, Percutaneous Approach (ICD-10-PCS; 2017-10-17)
PROC: BW251ZZ Computerized Tomography (CT Scan) of Chest, Abdomen and Pelvis using Low Osmolar Contrast (ICD-10-PCS; 2017-10-19)
PROC: 0DBK8ZX Excision of Ascending Colon, Via Natural or Artificial Opening Endoscopic, Diagnostic (ICD-10-PCS; 2017-10-20)
PROC: 0DBL8ZX Excision of Transverse Colon, Via Natural or Artificial Opening Endoscopic, Diagnostic (ICD-10-PCS; 2017-10-20)
PROC: 0DBH8ZX Excision of Cecum, Via Natural or Artificial Opening Endoscopic, Diagnostic (ICD-10-PCS; 2017-10-20)
PROC: 0D568ZZ Destruction of Stomach, Via Natural or Artificial Opening Endoscopic (ICD-10-PCS; 2017-10-20)
DX: J93.9 Pneumothorax, unspecified (principal); J18.1 Lobar pneumonia, unspecified organism; J90 Pleural effusion, not elsewhere classified; E11.42 Type 2 diabetes mellitus with diabetic polyneuropathy; K92.2 Gastrointestinal hemorrhage, unspecified; J94.8 Other specified pleural conditions; J98.19 Other pulmonary collapse; J43.2 Centrilobular emphysema; K74.60 Unspecified cirrhosis of liver; K80.20 Calculus of gallbladder without cholecystitis without obstruction; D12.2 Benign neoplasm of ascending colon; D12.0 Benign neoplasm of cecum; K20.9 Esophagitis, unspecified; K31.819 Angiodysplasia of stomach and duodenum without bleeding; D12.3 Benign neoplasm of transverse colon; K64.8 Other hemorrhoids; D50.0 Iron deficiency anemia secondary to blood loss (chronic); K76.0 Fatty (change of) liver, not elsewhere classified; I10 Essential (primary) hypertension; I25.10 Atherosclerotic heart disease of native coronary artery without angina pectoris; J40 Bronchitis, not specified as acute or chronic; N40.0 Benign prostatic hyperplasia without lower urinary tract symptoms; B19.20 Unspecified viral hepatitis C without hepatic coma; F32.9 Major depressive disorder, single episode, unspecified; F41.9 Anxiety disorder, unspecified; Z79.899 Other long term (current) drug therapy; Z79.4 Long term (current) use of insulin; Z79.82 Long term (current) use of aspirin; Z87.891 Personal history of nicotine dependence; Z23 Encounter for immunization
CPT/HCPCS: 32557; 36415; 45381; 45385; 71010; 71045; 71250; 71260; 73600; 74177; 80048; 80053; 80320; 82272; 82945; 82948; 83036; 83540; 83550; 83615; 83735; 83880; 84145; 84157; 84484; 85025; 85610; 85730; 86885; 86900; 86901; 86920; 87040; 87070; 88108; 88305; 89051; 93005; 96374; 97116; 97161; 97530; 99291; A6212; A6213; A6222; A6223; A6257; A6258; A6402; A6449; G0500; J0696; J1815; J2250; J2270; J2997; J3010; J7030; P9016; Q2037; Q9963; Q9967

== ENCOUNTER 2017-10-26 18:16 | Inpatient (IN) | payer MEDICARE, MEDICAID ==
[~2017-10-26] VITALS: Ht 167.6 cm; Wt 80.0 kg
[~2017-10-26 18:16] MED LIST changes: -AMLO1CAP59 PO; +AMLO5TAB16 PO; +ARIP10TA17 PO; -DESV100T PO; +FERR240T2 PO; +FLUO-1 PO; -GABA-338 PO; -HYDR-565 PO; -HYDR12.522 PO; -IMD30T PO; +LEVO50TA8 PO; +LISI10TA4 PO; -LISI40TA4 PO; -LORA10TA7 PO; -METF500T PO; -MORP30TA60 PO; +PREG150C PO; -SIN10C PO; +TIOT18CA3 INH; +TRAZ-146 PO; -TRAZ-91 PO
[2017-10-26] MEDS ORDERED: aspirin 81mg tab.chew PO ONE (18:25)
[2017-10-26 18:42] LABS: BASOPHILS % (AUTO) 0.2 % (0-1); EOSINOPHILS # (AUTO) 0.2 X10'3 (0-0.9); EOSINOPHILS % (AUTO) 1.3 % (0-6); LYMPHOCYTES % (AUTO) 9.1 % (21-51); MEAN CORPUSCULAR HEMOGLOBIN 22.1 PG (27.0-31.0); MEAN CORPUSCULAR HGB CONC 30.7 % (33.0-36.5); MEAN CORPUSCULAR VOLUME 71.9 FL (78-98); MEAN PLATELET VOLUME 8.3 FL (7.4-10.4); MONOCYTES # (AUTO) 0.7 X10'3 (0-0.9); MONOCYTES % (AUTO) 6.1 % (2-12); NEUTROPHILS # (AUTO) 9.6 X10'3 (1.8-7.7); NEUTROPHILS % (AUTO) 83.3 % (42-75); PLATELET COUNT 390 X10'3 (140-440); RED BLOOD COUNT 3.62 X10'6 (4.70-6.10); RED CELL DISTRIBUTION WIDTH 22.8 % (11.5-14.5); WHITE BLOOD COUNT 11.5 X10'3 (4.5-11.0)
[2017-10-26] MEDS: nitroGLYCERIN 0.4mg SUBLingual tab SL PRN ×2 (18:49→19:48)
[2017-10-26 18:56] LABS: ALANINE AMINOTRANSFERASE 174 U/L (12-78); ALBUMIN 2.4 G/DL (3.4-5.0); ALBUMIN/GLOBULIN RATIO 0.5 (1.1-1.5); ALKALINE PHOSPHATASE 304 IU/L (46-116); ANION GAP 6 (8-16); ASPARTATE AMINO TRANSFERASE 245 U/L (10-37); BILIRUBIN,TOTAL 0.5 MG/DL (0.1-1.0); BLOOD UREA NITROGEN 36 MG/DL (7-18); BUN/CREATININE RATIO 28.3 (5.4-32.0); CALCIUM 8.1 MG/DL (8.5-10.1); CHLORIDE 106 MMOL/L (99-107); CREATININE 1.27 MG/DL (0.60-1.10); GLUCOSE 184 MG/DL (70-104); POTASSIUM 4.3 MMOL/L (3.5-5.1); SODIUM 141 MMOL/L (135-145); TOTAL CARBON DIOXIDE 28.6 MMOL/L (24-32); TOTAL PROTEIN 7.1 G/DL (6.4-8.2); eGFR 57 ML/MIN
[2017-10-26 19:01] LABS: ANISOCYTOSIS 3+; HYPOCHROMASIA 2+; PLATELET ESTIMATE NORMAL; POLYCHROMASIA 2+
[2017-10-26 19:05] LABS: MAGNESIUM 1.8 MG/DL (1.5-2.4)
[2017-10-26] MEDS ORDERED: normal saline 1000ML IV soln IVB ONE (19:05)
[2017-10-26] MEDS ORDERED: iohexol 300mg/ml 100ml inj. ONE (19:16)
[2017-10-26] MEDS: MESSAGE TO NURSING PO SCH (20:00)
[2017-10-26] MEDS ORDERED: vancomycin/NS 1 GM ADD-VANTAGE 250 ML IV ONE (20:50)
[2017-10-26] MEDS ORDERED: piperacillin/tazo 3.375gm/50ml 50 ML IV ONE (20:50)
[2017-10-26] MEDS ORDERED: magnesium hydroxide 30ml (MOM) UD suspension PO PRN (22:35)
[2017-10-26] MEDS ORDERED: ondansetron/PF 4mg/2ml inj IV PRN (22:35)
[2017-10-26] MEDS ORDERED: mag hydrox/Alum hydrox/simeth 30ml oral suspension PO PRN (22:35)
[2017-10-26] MEDS: morphine 2 MG/ML inj. syringe IV PRN (23:05)
[2017-10-26] MEDS ORDERED: glucagon, human recombinant 1mg kit SUBCUT PRN (23:25)
[2017-10-26] MEDS ORDERED: MESSAGE TO PHARMACY PO ONE (23:25)
[2017-10-26] MEDS ORDERED: insulin Lispro (HumaLOG) vial - multi-dose SQ SCH (23:25)
[2017-10-26] MEDS ORDERED: dextrose 50%-water 50ml dispensing syringe IV PRN ×2 (23:25)
[2017-10-26] MEDS ORDERED: dextrose ORAL solution 15 GM/59 ML bottle PO PRN ×2 (23:25)
[2017-10-26 23:35] VITALS: BP 120/65
[2017-10-27] VITALS (12 sets, daily range): BP systolic 96–127; BP diastolic 56–72
[2017-10-27] MEDS: pregabalin 75mg capsule PO SCH ×4 (01:16→20:30)
[2017-10-27] MEDS: busPIRone 5mg tablet PO SCH ×3 (01:17→19:08)
[2017-10-27] MEDS ORDERED: piperacillin/tazo 3.375gm/50ml 50 ML IV ONE (01:29)
[2017-10-27] MEDS: piperacillin/tazo 3.375gm/50ml 50 ML IV SCH ×2 (01:46→09:00)
[2017-10-27] MEDS: morphine 2 MG/ML inj. syringe IV PRN ×4 (02:56→20:31)
[2017-10-27] MEDS: ipratropium 0.5 MG/2.5ML nebule IH SCH ×4 (03:06→21:31)
[2017-10-27] MEDS: MESSAGE TO NURSING PO SCH (07:11)
[2017-10-27] MEDS: aripiprazole 5mg tablet PO SCH (07:32)
[2017-10-27] MEDS: levoTHYROXINE 25mcg tablet PO SCH (07:32)
[2017-10-27] MEDS: FLUoxetine 20mg capsule PO SCH (07:33)
[2017-10-27] MEDS: ferrous gluconate 324mg tablet PO SCH ×2 (07:33→19:08)
[2017-10-27 08:00] LABS: BASOPHILS % (AUTO) 0 % (0-1); EOSINOPHILS # (AUTO) 0.3 X10'3 (0-0.9); EOSINOPHILS % (AUTO) 3.8 % (0-6); HEMATOCRIT 22.6 % (42.0-52.0); LYMPHOCYTES # (AUTO) 1.2 X10'3 (1.1-4.8); LYMPHOCYTES % (AUTO) 13.6 % (21-51); MEAN CORPUSCULAR HEMOGLOBIN 22.1 PG (27.0-31.0); MEAN CORPUSCULAR HGB CONC 30.3 % (33.0-36.5); MEAN CORPUSCULAR VOLUME 72.7 FL (78-98); MEAN PLATELET VOLUME 8.4 FL (7.4-10.4); MONOCYTES # (AUTO) 0.8 X10'3 (0-0.9); MONOCYTES % (AUTO) 9.6 % (2-12); NEUTROPHILS # (AUTO) 6.2 X10'3 (1.8-7.7); PLATELET COUNT 330 X10'3 (140-440); RED BLOOD COUNT 3.11 X10'6 (4.70-6.10); WHITE BLOOD COUNT 8.5 X10'3 (4.5-11.0)
[2017-10-27] MEDS: Terazosin 1mg capsule PO SCH (08:00)
[2017-10-27] MEDS: lisinopril 10 MG tablet PO SCH (08:00)
[2017-10-27] MEDS ORDERED: non-formulary drug (Tiotropium Bromide (Spiriva) 1 PUFF) INH SCH (08:00)
[2017-10-27] MEDS: amLODIPine 5mg tablet PO SCH (08:00)
[2017-10-27] MEDS ORDERED: clopidogrel 75mg tablet PO SCH (08:00)
[2017-10-27] MEDS ORDERED: traZODone 150mg tablet PO SCH (08:00)
[2017-10-27] MEDS ORDERED: vancomycin/NS 1 GM ADD-VANTAGE 250 ML IV SCH (08:00)
[2017-10-27 08:04] LABS: HEMOGLOBIN 6.9 g/dl (14.0-17.9)
[2017-10-27 08:14] LABS: PROTHROMBIN TIME 10.7 SECONDS (9.0-12.0)
[2017-10-27 08:17] LABS: ALANINE AMINOTRANSFERASE 370 U/L (12-78); ALBUMIN/GLOBULIN RATIO 0.5 (1.1-1.5); ALKALINE PHOSPHATASE 257 IU/L (46-116); ANION GAP 5 (8-16); ASPARTATE AMINO TRANSFERASE 679 U/L (10-37); BILIRUBIN,TOTAL 0.5 MG/DL (0.1-1.0); BLOOD UREA NITROGEN 26 MG/DL (7-18); BUN/CREATININE RATIO 20.5 (5.4-32.0); CALCIUM 7.6 MG/DL (8.5-10.1); CHLORIDE 108 MMOL/L (99-107); CREATININE 1.27 MG/DL (0.60-1.10); GLUCOSE 119 MG/DL (70-104); POTASSIUM 3.9 MMOL/L (3.5-5.1); SODIUM 142 MMOL/L (135-145); eGFR 57 ML/MIN
[2017-10-27] MEDS ORDERED: iohexol 300mg/ml 100ml inj. ONE (11:50)
[2017-10-27 13:12] LABS: URINE AMPHETAMINE SCREEN NEGATIVE (Neg); URINE BARBITUATE SCREEN NEGATIVE (Neg); URINE BENZODIAZEPINES SCREEN NEGATIVE (Neg); URINE CANNABINOID SCREEN NEGATIVE (Neg); URINE COCAINE SCREEN POSITIVE (Neg); URINE METHADONE SCREEN NEGATIVE (Neg); URINE OPIATE SCREEN POSITIVE (Neg); URINE PHENCYCLIDINE SCREEN NEGATIVE (Neg)
[2017-10-27] MEDS: levoFLOXACIN-Levaquin 500mg/D5 100 ML IV SCH (13:24)
[2017-10-27] MEDS: traZODone 150mg tablet PO SCH (20:31)
[2017-10-27] MEDS: Insulin Detemir pen SQ SCH (21:00)
[2017-10-28] VITALS: BP 127/74
[2017-10-28] MEDS: morphine 2 MG/ML inj. syringe IV PRN ×6 (03:31→21:50)
[2017-10-28] MEDS: ipratropium 0.5 MG/2.5ML nebule IH SCH ×4 (03:58→20:24)
[2017-10-28 05:10] LABS: BASOPHILS % (AUTO) 0.2 % (0-1); EOSINOPHILS # (AUTO) 0.4 X10'3 (0-0.9); EOSINOPHILS % (AUTO) 3.3 % (0-6); HEMATOCRIT 28.7 % (42.0-52.0); LYMPHOCYTES % (AUTO) 8.9 % (21-51); MEAN CORPUSCULAR HEMOGLOBIN 23.9 PG (27.0-31.0); MEAN CORPUSCULAR HGB CONC 31.5 % (33.0-36.5); MEAN CORPUSCULAR VOLUME 75.9 FL (78-98); MEAN PLATELET VOLUME 8.7 FL (7.4-10.4); MONOCYTES % (AUTO) 9.6 % (2-12); NEUTROPHILS # (AUTO) 8.4 X10'3 (1.8-7.7); PLATELET COUNT 297 X10'3 (140-440); RED BLOOD COUNT 3.78 X10'6 (4.70-6.10); RED CELL DISTRIBUTION WIDTH 21.9 % (11.5-14.5); WHITE BLOOD COUNT 10.7 X10'3 (4.5-11.0)
[2017-10-28 05:20] LABS: ANION GAP 3 (8-16); BLOOD UREA NITROGEN 19 MG/DL (7-18); BUN/CREATININE RATIO 16.7 (5.4-32.0); CALCIUM 7.7 MG/DL (8.5-10.1); CHLORIDE 107 MMOL/L (99-107); CREATININE 1.14 MG/DL (0.60-1.10); GLUCOSE 119 MG/DL (70-104); POTASSIUM 3.8 MMOL/L (3.5-5.1); SODIUM 141 MMOL/L (135-145); TOTAL CARBON DIOXIDE 30.8 MMOL/L (24-32); eGFR 64 ML/MIN
[2017-10-28 07:00] VITALS: BP 122/71
[2017-10-28] MEDS: pregabalin 75mg capsule PO SCH ×3 (07:16→20:40)
[2017-10-28] MEDS: FLUoxetine 20mg capsule PO SCH (07:16)
[2017-10-28] MEDS: aripiprazole 5mg tablet PO SCH (07:16)
[2017-10-28] MEDS: MESSAGE TO NURSING PO SCH (07:17)
[2017-10-28] MEDS: levoTHYROXINE 25mcg tablet PO SCH (07:17)
[2017-10-28] MEDS: lisinopril 10 MG tablet PO SCH (07:17)
[2017-10-28] MEDS: busPIRone 5mg tablet PO SCH ×2 (07:17→19:15)
[2017-10-28] MEDS: amLODIPine 5mg tablet PO SCH (07:17)
[2017-10-28] MEDS: levoFLOXACIN-Levaquin 500mg/D5 100 ML IV SCH (07:17)
[2017-10-28] MEDS: ferrous gluconate 324mg tablet PO SCH ×2 (07:17→19:15)
[2017-10-28] MEDS: Terazosin 1mg capsule PO SCH (07:18)
[2017-10-28] MEDS ORDERED: LIDOcaine 1%/PF (10mg/ml) 5ml vial ONE (10:14)
[2017-10-28 10:22] LABS: ALANINE AMINOTRANSFERASE 407 U/L (12-78); ALBUMIN 1.9 G/DL (3.4-5.0); ALBUMIN/GLOBULIN RATIO 0.5 (1.1-1.5); ALKALINE PHOSPHATASE 257 IU/L (46-116); ANION GAP 2 (8-16); ASPARTATE AMINO TRANSFERASE 554 U/L (10-37); BILIRUBIN,TOTAL 0.7 MG/DL (0.1-1.0); BLOOD UREA NITROGEN 19 MG/DL (7-18); BUN/CREATININE RATIO 16.4 (5.4-32.0); CALCIUM 7.6 MG/DL (8.5-10.1); CHLORIDE 106 MMOL/L (99-107); CREATININE 1.16 MG/DL (0.60-1.10); GLUCOSE 172 MG/DL (70-104); POTASSIUM 3.7 MMOL/L (3.5-5.1); SODIUM 137 MMOL/L (135-145); TOTAL PROTEIN 5.9 G/DL (6.4-8.2); eGFR 63 ML/MIN
[2017-10-28 10:26] VITALS: BP 116/68
[2017-10-28 10:52] VITALS: BP 107/63
[2017-10-28 11:00] VITALS: BP 109/59
[2017-10-28 11:32] LABS: BFSOURCE RIGHT PLEURAL FLD; PLEURAL FLUID PH 7.471 (7.63-7.65)
[2017-10-28 11:55] LABS: BASOPHILS,BODY FLUID 4 %; BFAPPEAR CLOUDY; BFCOLOR AMBER; EOSINOPHILS,BODY FLUID 1 %; LYMPHOCYTES,BODY FLUID 54 %; MONOCYTES,BODY FLUID 4 %; NEUTROPHILS,BODY FLUID 37 %
[2017-10-28 11:56] LABS: BF MESOTHELIAL CELLS FEW; BF RBC COUNT 1070 /CU MM; BF WBC COUNT 525 /CU MM (0-1000); BFVOLUME 60 ML
[2017-10-28 12:04] LABS: GLUCOSE,BODY FLUID 165 MG/DL; LDH,BODY FLUID 254 U/L; TOTAL PROTEIN,BODY FLUID 2.6 G/DL
[2017-10-28 19:54] VITALS: BP 119/60
[2017-10-28] MEDS: docusate sod 250mg capsule PO SCH (20:41)
[2017-10-28] MEDS: traZODone 150mg tablet PO SCH (20:41)
[2017-10-28] MEDS: Insulin Detemir pen SQ SCH (20:48)
[2017-10-29] VITALS: BP_SYST 105; BP_SYST 96; BP_DIAS 52; BP_DIAS 61
[2017-10-29] MEDS: morphine 2 MG/ML inj. syringe IV PRN ×2 (01:04→04:16)
[2017-10-29] MEDS: ipratropium 0.5 MG/2.5ML nebule IH SCH ×4 (03:00→21:19)
[2017-10-29 05:10] LABS: BASOPHILS % (AUTO) 0.1 % (0-1); EOSINOPHILS # (AUTO) 0.2 X10'3 (0-0.9); EOSINOPHILS % (AUTO) 1.1 % (0-6); HEMATOCRIT 27.7 % (42.0-52.0); HEMOGLOBIN 8.6 g/dl (14.0-17.9); LYMPHOCYTES # (AUTO) 0.9 X10'3 (1.1-4.8); LYMPHOCYTES % (AUTO) 6.4 % (21-51); MEAN CORPUSCULAR HEMOGLOBIN 23.9 PG (27.0-31.0); MEAN CORPUSCULAR HGB CONC 31.1 % (33.0-36.5); MEAN CORPUSCULAR VOLUME 76.9 FL (78-98); MEAN PLATELET VOLUME 9.3 FL (7.4-10.4); MONOCYTES # (AUTO) 1.2 X10'3 (0-0.9); MONOCYTES % (AUTO) 8.5 % (2-12); NEUTROPHILS # (AUTO) 12.1 X10'3 (1.8-7.7); NEUTROPHILS % (AUTO) 83.9 % (42-75); PLATELET COUNT 278 X10'3 (140-440); RED BLOOD COUNT 3.61 X10'6 (4.70-6.10); RED CELL DISTRIBUTION WIDTH 22.8 % (11.5-14.5); WHITE BLOOD COUNT 14.5 X10'3 (4.5-11.0)
[2017-10-29 05:44] LABS: ANION GAP 4 (8-16); BILIRUBIN,TOTAL 0.9 MG/DL (0.1-1.0); BLOOD UREA NITROGEN 19 MG/DL (7-18); BUN/CREATININE RATIO 14.8 (5.4-32.0); CALCIUM 7.8 MG/DL (8.5-10.1); CHLORIDE 105 MMOL/L (99-107); CREATININE 1.28 MG/DL (0.60-1.10); GLUCOSE 121 MG/DL (70-104); POTASSIUM 3.9 MMOL/L (3.5-5.1); SODIUM 138 MMOL/L (135-145); TOTAL PROTEIN 5.8 G/DL (6.4-8.2); eGFR 56 ML/MIN
[2017-10-29 05:45] LABS: ALANINE AMINOTRANSFERASE 293 U/L (12-78); ALBUMIN 1.8 G/DL (3.4-5.0); ALBUMIN/GLOBULIN RATIO 0.5 (1.1-1.5); ALKALINE PHOSPHATASE 239 IU/L (46-116); ASPARTATE AMINO TRANSFERASE 301 U/L (10-37)
[2017-10-29 05:58] LABS: % IRON SATURATION 6 % (11-46); IRON 15 UG/DL (53-167); TOTAL IRON BINDING CAPACITY 262 UG/DL (259-388)
[2017-10-29 07:09] VITALS: BP 96/55
[2017-10-29] MEDS: levoTHYROXINE 25mcg tablet PO SCH (07:36)
[2017-10-29] MEDS: LACTOBACILLUS RHAMNOSUS GG 15 billion unit sprinkle caps PO SCH (07:36)
[2017-10-29] MEDS: busPIRone 5mg tablet PO SCH ×2 (07:37→21:09)
[2017-10-29] MEDS: aripiprazole 5mg tablet PO SCH (07:37)
[2017-10-29] MEDS: traZODone 150mg tablet PO SCH (07:38)
[2017-10-29] MEDS: ferrous gluconate 324mg tablet PO SCH ×2 (07:38→21:09)
[2017-10-29] MEDS: FLUoxetine 20mg capsule PO SCH (07:39)
[2017-10-29] MEDS: pregabalin 75mg capsule PO SCH ×3 (07:39→21:08)
[2017-10-29] MEDS: lisinopril 10 MG tablet PO SCH (07:42)
[2017-10-29] MEDS: Terazosin 1mg capsule PO SCH (07:42)
[2017-10-29] MEDS: amLODIPine 5mg tablet PO SCH (07:42)
[2017-10-29 08:17] LABS: AFP,SERUM, TUMOR MARKER 684.2 ng/mL (0.0-8.3)
[2017-10-29] MEDS: HYDROcodone/acetaminophen 10/325mg tab PO PRN ×2 (10:33→18:49)
[2017-10-29] MEDS: levoFLOXACIN 500mg tablet PO SCH (10:33)
[2017-10-29 12:13] VITALS: BP 97/52
[2017-10-29 15:12] LABS: HEPATITIS C ANTIBODY >11.0 s/co ratio (0.0-0.9)
[2017-10-29 18:00] VITALS: BP 114/70
[2017-10-29 18:40] VITALS: BP 119/55
[2017-10-29] MEDS: Insulin Detemir pen SQ SCH (21:00)
[2017-10-29] MEDS: docusate sod 250mg capsule PO SCH (21:08)
[2017-10-30] MEDS: HYDROcodone/acetaminophen 10/325mg tab PO PRN ×3 (03:07→19:24)
[2017-10-30] MEDS: ipratropium 0.5 MG/2.5ML nebule IH SCH ×4 (03:47→20:37)
[2017-10-30 05:49] LABS: ALANINE AMINOTRANSFERASE 236 U/L (12-78); ALBUMIN 1.6 G/DL (3.4-5.0); ALBUMIN/GLOBULIN RATIO 0.4 (1.1-1.5); ALKALINE PHOSPHATASE 233 IU/L (46-116); ANION GAP 3 (8-16); ASPARTATE AMINO TRANSFERASE 181 U/L (10-37); BILIRUBIN,TOTAL 0.7 MG/DL (0.1-1.0); BLOOD UREA NITROGEN 26 MG/DL (7-18); BUN/CREATININE RATIO 18.8 (5.4-32.0); CALCIUM 8.1 MG/DL (8.5-10.1); CHLORIDE 103 MMOL/L (99-107); CREATININE 1.38 MG/DL (0.60-1.10); GLUCOSE 151 MG/DL (70-104); POTASSIUM 3.7 MMOL/L (3.5-5.1); SODIUM 135 MMOL/L (135-145); TOTAL CARBON DIOXIDE 29.1 MMOL/L (24-32); TOTAL PROTEIN 6.1 G/DL (6.4-8.2); eGFR 52 ML/MIN
[2017-10-30 06:30] LABS: BASOPHILS % (AUTO) 0.1 % (0-1); EOSINOPHILS # (AUTO) 0.2 X10'3 (0-0.9); EOSINOPHILS % (AUTO) 1.2 % (0-6); HEMOGLOBIN 8.8 g/dl (14.0-17.9); LYMPHOCYTES # (AUTO) 0.9 X10'3 (1.1-4.8); MEAN CORPUSCULAR HEMOGLOBIN 23.7 PG (27.0-31.0); MEAN CORPUSCULAR HGB CONC 31.3 % (33.0-36.5); MEAN CORPUSCULAR VOLUME 75.8 FL (78-98); MEAN PLATELET VOLUME 9.8 FL (7.4-10.4); MONOCYTES # (AUTO) 1.2 X10'3 (0-0.9); MONOCYTES % (AUTO) 7.7 % (2-12); PLATELET COUNT 279 X10'3 (140-440); RED BLOOD COUNT 3.69 X10'6 (4.70-6.10); WHITE BLOOD COUNT 15.3 X10'3 (4.5-11.0)
[2017-10-30 06:40] VITALS: BP 123/65
[2017-10-30] MEDS: aripiprazole 5mg tablet PO SCH (08:06)
[2017-10-30] MEDS: pregabalin 75mg capsule PO SCH ×3 (08:07→21:10)
[2017-10-30] MEDS: busPIRone 5mg tablet PO SCH ×2 (08:07→19:24)
[2017-10-30] MEDS: amLODIPine 5mg tablet PO SCH (08:07)
[2017-10-30] MEDS: ferrous gluconate 324mg tablet PO SCH ×2 (08:07→19:24)
[2017-10-30] MEDS: FLUoxetine 20mg capsule PO SCH (08:07)
[2017-10-30] MEDS: LACTOBACILLUS RHAMNOSUS GG 15 billion unit sprinkle caps PO SCH (08:07)
[2017-10-30] MEDS: levoTHYROXINE 25mcg tablet PO SCH (08:07)
[2017-10-30] MEDS: lisinopril 10 MG tablet PO SCH (08:08)
[2017-10-30] MEDS: traZODone 150mg tablet PO SCH (08:08)
[2017-10-30] MEDS: Terazosin 1mg capsule PO SCH (08:22)
[2017-10-30 11:00] VITALS: BP 105/55
[2017-10-30] MEDS: levoFLOXACIN 500mg tablet PO SCH (11:16)
[2017-10-30 20:00] VITALS: BP 90/53
[2017-10-30] MEDS: Insulin Detemir pen SQ SCH (21:00)
[2017-10-30] MEDS: docusate sod 250mg capsule PO SCH (21:10)
[2017-10-30] MEDS: morphine 2 MG/ML inj. syringe IV PRN (23:03)
[2017-10-31] VITALS: BP 99/63
[2017-10-31] MEDS: ipratropium 0.5 MG/2.5ML nebule IH SCH ×4 (03:11→21:14)
[2017-10-31] MEDS: HYDROcodone/acetaminophen 10/325mg tab PO PRN ×2 (03:22→16:06)
[2017-10-31 05:03] LABS: ALANINE AMINOTRANSFERASE 181 U/L (12-78); ALBUMIN 1.6 G/DL (3.4-5.0); ALBUMIN/GLOBULIN RATIO 0.3 (1.1-1.5); ALKALINE PHOSPHATASE 239 IU/L (46-116); ANION GAP 5 (8-16); ASPARTATE AMINO TRANSFERASE 139 U/L (10-37); BILIRUBIN,TOTAL 0.6 MG/DL (0.1-1.0); BLOOD UREA NITROGEN 33 MG/DL (7-18); BUN/CREATININE RATIO 23.1 (5.4-32.0); CALCIUM 8.1 MG/DL (8.5-10.1); CHLORIDE 102 MMOL/L (99-107); CREATININE 1.43 MG/DL (0.60-1.10); GLUCOSE 142 MG/DL (70-104); POTASSIUM 4.1 MMOL/L (3.5-5.1); SODIUM 138 MMOL/L (135-145); TOTAL CARBON DIOXIDE 30.7 MMOL/L (24-32); TOTAL PROTEIN 6.2 G/DL (6.4-8.2); eGFR 49 ML/MIN
[2017-10-31 05:27] LABS: BASOPHILS % (AUTO) 0 % (0-1); EOSINOPHILS # (AUTO) 0.4 X10'3 (0-0.9); EOSINOPHILS % (AUTO) 3.3 % (0-6); HEMATOCRIT 27.3 % (42.0-52.0); HEMOGLOBIN 8.5 g/dl (14.0-17.9); LYMPHOCYTES # (AUTO) 0.8 X10'3 (1.1-4.8); MEAN CORPUSCULAR HEMOGLOBIN 23.7 PG (27.0-31.0); MEAN CORPUSCULAR HGB CONC 31.4 % (33.0-36.5); MEAN CORPUSCULAR VOLUME 75.6 FL (78-98); MONOCYTES % (AUTO) 7.8 % (2-12); NEUTROPHILS # (AUTO) 10.8 X10'3 (1.8-7.7); NEUTROPHILS % (AUTO) 82.9 % (42-75); PLATELET COUNT 292 X10'3 (140-440)
[2017-10-31 06:40] VITALS: BP 92/57
[2017-10-31] MEDS: lisinopril 10 MG tablet PO SCH (07:34)
[2017-10-31] MEDS: amLODIPine 5mg tablet PO SCH (07:34)
[2017-10-31] MEDS: levoTHYROXINE 25mcg tablet PO SCH (07:59)
[2017-10-31] MEDS: LACTOBACILLUS RHAMNOSUS GG 15 billion unit sprinkle caps PO SCH (07:59)
[2017-10-31] MEDS: FLUoxetine 20mg capsule PO SCH (08:00)
[2017-10-31] MEDS: traZODone 150mg tablet PO SCH (08:00)
[2017-10-31] MEDS: busPIRone 5mg tablet PO SCH ×2 (08:00→19:29)
[2017-10-31] MEDS: ferrous gluconate 324mg tablet PO SCH ×2 (08:00→19:29)
[2017-10-31] MEDS: aripiprazole 5mg tablet PO SCH (08:00)
[2017-10-31] MEDS: Terazosin 1mg capsule PO SCH (08:00)
[2017-10-31] MEDS: pregabalin 75mg capsule PO SCH ×3 (08:00→22:17)
[2017-10-31 11:00] VITALS: BP 90/55
[2017-10-31 11:15] VITALS: BP 92/52
[2017-10-31] MEDS: levoFLOXACIN 500mg tablet PO SCH (12:05)
[2017-10-31 15:45] VITALS: BP 107/59
[2017-10-31] MEDS ORDERED: albumin (human) 25% 100 ML IV solution IV PRN (17:25)
[2017-10-31 19:30] VITALS: BP 118/62
[2017-10-31] MEDS: docusate sod 250mg capsule PO SCH (21:00)
[2017-10-31] MEDS: Insulin Detemir pen SQ SCH (22:20)
[2017-11-01] VITALS: BP 113/52
[2017-11-01] MEDS: HYDROcodone/acetaminophen 10/325mg tab PO PRN ×3 (02:50→17:15)
[2017-11-01] MEDS: ipratropium 0.5 MG/2.5ML nebule IH SCH ×4 (03:06→19:55)
[2017-11-01 05:32] LABS: BASOPHILS % (AUTO) 0 % (0-1); EOSINOPHILS # (AUTO) 0.4 X10'3 (0-0.9); EOSINOPHILS % (AUTO) 3.6 % (0-6); HEMATOCRIT 26.1 % (42.0-52.0); HEMOGLOBIN 8.2 g/dl (14.0-17.9); LYMPHOCYTES # (AUTO) 0.5 X10'3 (1.1-4.8); LYMPHOCYTES % (AUTO) 5.1 % (21-51); MEAN CORPUSCULAR HEMOGLOBIN 23.6 PG (27.0-31.0); MEAN CORPUSCULAR HGB CONC 31.3 % (33.0-36.5); MEAN CORPUSCULAR VOLUME 75.3 FL (78-98); MEAN PLATELET VOLUME 9.7 FL (7.4-10.4); MONOCYTES # (AUTO) 0.7 X10'3 (0-0.9); MONOCYTES % (AUTO) 6.7 % (2-12); NEUTROPHILS # (AUTO) 8.7 X10'3 (1.8-7.7); NEUTROPHILS % (AUTO) 84.6 % (42-75); PLATELET COUNT 278 X10'3 (140-440); RED BLOOD COUNT 3.47 X10'6 (4.70-6.10); RED CELL DISTRIBUTION WIDTH 23.9 % (11.5-14.5); WHITE BLOOD COUNT 10.3 X10'3 (4.5-11.0)
[2017-11-01 06:03] LABS: ALANINE AMINOTRANSFERASE 154 U/L (12-78); ALBUMIN 1.6 G/DL (3.4-5.0); ALBUMIN/GLOBULIN RATIO 0.3 (1.1-1.5); ALKALINE PHOSPHATASE 258 IU/L (46-116); ANION GAP 5 (8-16); ASPARTATE AMINO TRANSFERASE 138 U/L (10-37); BILIRUBIN,TOTAL 0.5 MG/DL (0.1-1.0); BLOOD UREA NITROGEN 29 MG/DL (7-18); BUN/CREATININE RATIO 22.8 (5.4-32.0); CHLORIDE 104 MMOL/L (99-107); CREATININE 1.27 MG/DL (0.60-1.10); GLUCOSE 141 MG/DL (70-104); POTASSIUM 4.5 MMOL/L (3.5-5.1); SODIUM 138 MMOL/L (135-145); TOTAL CARBON DIOXIDE 29.1 MMOL/L (24-32); TOTAL PROTEIN 6.2 G/DL (6.4-8.2); eGFR 57 ML/MIN
[2017-11-01 07:00] VITALS: BP 125/61
[2017-11-01] MEDS: ferrous gluconate 324mg tablet PO SCH ×2 (08:08→20:55)
[2017-11-01] MEDS: busPIRone 5mg tablet PO SCH ×2 (08:08→20:55)
[2017-11-01] MEDS: pregabalin 75mg capsule PO SCH ×3 (08:08→20:55)
[2017-11-01] MEDS: aripiprazole 5mg tablet PO SCH (08:08)
[2017-11-01] MEDS: lisinopril 10 MG tablet PO SCH (08:08)
[2017-11-01] MEDS: Terazosin 1mg capsule PO SCH (08:08)
[2017-11-01] MEDS: levoTHYROXINE 25mcg tablet PO SCH (08:08)
[2017-11-01] MEDS: amLODIPine 5mg tablet PO SCH (08:08)
[2017-11-01] MEDS: LACTOBACILLUS RHAMNOSUS GG 15 billion unit sprinkle caps PO SCH (08:08)
[2017-11-01] MEDS: traZODone 150mg tablet PO SCH (08:08)
[2017-11-01] MEDS: FLUoxetine 20mg capsule PO SCH (08:08)
[2017-11-01] MEDS: levoFLOXACIN 500mg tablet PO SCH (10:52)
[2017-11-01 11:34] VITALS: BP 104/64
[2017-11-01 19:30] VITALS: BP_SYST 103; BP_SYST 106; BP_DIAS 59; BP_DIAS 64
[2017-11-01] MEDS: docusate sod 250mg capsule PO SCH (20:55)
[2017-11-01] MEDS: Insulin Detemir pen SQ SCH (21:00)
[2017-11-01] MEDS: morphine 2 MG/ML inj. syringe IV PRN (22:47)
[2017-11-01 23:00] VITALS: BP 103/59
[2017-11-02] MEDS: HYDROcodone/acetaminophen 10/325mg tab PO PRN ×3 (02:56→23:31)
[2017-11-02] MEDS: ipratropium 0.5 MG/2.5ML nebule IH SCH ×4 (03:28→20:55)
[2017-11-02 05:35] LABS: ALANINE AMINOTRANSFERASE 143 U/L (12-78); ALBUMIN 1.6 G/DL (3.4-5.0); ALBUMIN/GLOBULIN RATIO 0.4 (1.1-1.5); ALKALINE PHOSPHATASE 262 IU/L (46-116); ANION GAP 1 (8-16); ASPARTATE AMINO TRANSFERASE 138 U/L (10-37); BILIRUBIN,TOTAL 0.4 MG/DL (0.1-1.0); BLOOD UREA NITROGEN 25 MG/DL (7-18); BUN/CREATININE RATIO 20.8 (5.4-32.0); CALCIUM 8.2 MG/DL (8.5-10.1); CHLORIDE 105 MMOL/L (99-107); GLUCOSE 131 MG/DL (70-104); POTASSIUM 4.5 MMOL/L (3.5-5.1); SODIUM 138 MMOL/L (135-145); TOTAL CARBON DIOXIDE 32.3 MMOL/L (24-32); TOTAL PROTEIN 6.1 G/DL (6.4-8.2); eGFR 61 ML/MIN
[2017-11-02 06:30] LABS: BASOPHILS % (AUTO) 0.2 % (0-1); EOSINOPHILS # (AUTO) 0.3 X10'3 (0-0.9); EOSINOPHILS % (AUTO) 3.7 % (0-6); HEMOGLOBIN 8.4 g/dl (14.0-17.9); LYMPHOCYTES # (AUTO) 0.9 X10'3 (1.1-4.8); LYMPHOCYTES % (AUTO) 9.9 % (21-51); MEAN CORPUSCULAR HEMOGLOBIN 23.5 PG (27.0-31.0); MEAN CORPUSCULAR HGB CONC 31.3 % (33.0-36.5); MEAN CORPUSCULAR VOLUME 74.9 FL (78-98); MEAN PLATELET VOLUME 9.1 FL (7.4-10.4); MONOCYTES # (AUTO) 0.7 X10'3 (0-0.9); MONOCYTES % (AUTO) 7.6 % (2-12); NEUTROPHILS # (AUTO) 6.9 X10'3 (1.8-7.7); NEUTROPHILS % (AUTO) 78.6 % (42-75); PLATELET COUNT 293 X10'3 (140-440); WHITE BLOOD COUNT 8.7 X10'3 (4.5-11.0)
[2017-11-02 07:00] VITALS: BP 99/54
[2017-11-02] MEDS: Terazosin 1mg capsule PO SCH ×2 (07:00→10:32)
[2017-11-02] MEDS: amLODIPine 5mg tablet PO SCH ×2 (07:01→10:33)
[2017-11-02] MEDS: lisinopril 10 MG tablet PO SCH ×2 (07:02→10:33)
[2017-11-02] MEDS: levoTHYROXINE 25mcg tablet PO SCH (07:05)
[2017-11-02] MEDS: ferrous gluconate 324mg tablet PO SCH ×3 (07:05→20:12)
[2017-11-02] MEDS: LACTOBACILLUS RHAMNOSUS GG 15 billion unit sprinkle caps PO SCH (07:06)
[2017-11-02] MEDS: aripiprazole 5mg tablet PO SCH (10:32)
[2017-11-02] MEDS: pregabalin 75mg capsule PO SCH ×3 (10:33→20:12)
[2017-11-02] MEDS: levoFLOXACIN 500mg tablet PO SCH (10:33)
[2017-11-02] MEDS: FLUoxetine 20mg capsule PO SCH (10:33)
[2017-11-02] MEDS: busPIRone 5mg tablet PO SCH ×2 (10:33→20:12)
[2017-11-02] MEDS: traZODone 150mg tablet PO SCH (10:33)
[2017-11-02 10:41] VITALS: BP 125/68
[2017-11-02 12:37] VITALS: BP 128/68
[2017-11-02] MEDS: tPA-cathflo 2mg/2ml IV flush 10 MG in normal saline 100ml IV soln 40 ML ICATH ONE ×2 (13:09→13:25)
[2017-11-02] MEDS ORDERED: HYDROcodone/acetaminophen 10/325mg tab PO ONE (15:00)
[2017-11-02 19:45] VITALS: BP 104/61
[2017-11-02] MEDS: docusate sod 250mg capsule PO SCH (20:12)
[2017-11-02] MEDS: Insulin Detemir pen SQ SCH (21:00)
[2017-11-02 23:45] VITALS: BP 129/63
[2017-11-03] MEDS: ipratropium 0.5 MG/2.5ML nebule IH SCH ×4 (02:36→20:51)
[2017-11-03 05:31] LABS: BASOPHILS % (AUTO) 0.2 % (0-1); EOSINOPHILS # (AUTO) 0.3 X10'3 (0-0.9); HEMATOCRIT 26.5 % (42.0-52.0); HEMOGLOBIN 8.2 g/dl (14.0-17.9); LYMPHOCYTES # (AUTO) 0.8 X10'3 (1.1-4.8); LYMPHOCYTES % (AUTO) 10.3 % (21-51); MEAN CORPUSCULAR HEMOGLOBIN 23.2 PG (27.0-31.0); MEAN CORPUSCULAR HGB CONC 31.1 % (33.0-36.5); MEAN CORPUSCULAR VOLUME 74.6 FL (78-98); MEAN PLATELET VOLUME 9.6 FL (7.4-10.4); MONOCYTES # (AUTO) 0.6 X10'3 (0-0.9); MONOCYTES % (AUTO) 8.3 % (2-12); NEUTROPHILS # (AUTO) 5.8 X10'3 (1.8-7.7); NEUTROPHILS % (AUTO) 77.2 % (42-75); PLATELET COUNT 282 X10'3 (140-440); RED BLOOD COUNT 3.55 X10'6 (4.70-6.10); RED CELL DISTRIBUTION WIDTH 23.4 % (11.5-14.5); WHITE BLOOD COUNT 7.6 X10'3 (4.5-11.0)
[2017-11-03 06:05] LABS: ALANINE AMINOTRANSFERASE 139 U/L (12-78); ALBUMIN 1.6 G/DL (3.4-5.0); ALBUMIN/GLOBULIN RATIO 0.3 (1.1-1.5); ALKALINE PHOSPHATASE 288 IU/L (46-116); ANION GAP 4 (8-16); ASPARTATE AMINO TRANSFERASE 154 U/L (10-37); BILIRUBIN,TOTAL 0.3 MG/DL (0.1-1.0); BLOOD UREA NITROGEN 20 MG/DL (7-18); BUN/CREATININE RATIO 22.2 (5.4-32.0); CALCIUM 8.3 MG/DL (8.5-10.1); CHLORIDE 106 MMOL/L (99-107); GLUCOSE 128 MG/DL (70-104); POTASSIUM 4.2 MMOL/L (3.5-5.1); SODIUM 140 MMOL/L (135-145); TOTAL CARBON DIOXIDE 29.8 MMOL/L (24-32); TOTAL PROTEIN 6.2 G/DL (6.4-8.2); eGFR 84 ML/MIN
[2017-11-03 07:00] VITALS: BP 128/68
[2017-11-03] MEDS: LACTOBACILLUS RHAMNOSUS GG 15 billion unit sprinkle caps PO SCH (07:40)
[2017-11-03] MEDS: levoTHYROXINE 25mcg tablet PO SCH (07:40)
[2017-11-03] MEDS: busPIRone 5mg tablet PO SCH ×2 (07:41→20:53)
[2017-11-03] MEDS: traZODone 150mg tablet PO SCH (07:41)
[2017-11-03] MEDS: FLUoxetine 20mg capsule PO SCH (07:41)
[2017-11-03] MEDS: aripiprazole 5mg tablet PO SCH (07:41)
[2017-11-03] MEDS: ferrous gluconate 324mg tablet PO SCH ×2 (07:42→20:53)
[2017-11-03] MEDS: pregabalin 75mg capsule PO SCH ×3 (07:42→20:53)
[2017-11-03] MEDS: HYDROcodone/acetaminophen 10/325mg tab PO PRN ×2 (07:44→15:28)
[2017-11-03 11:00] VITALS: BP 120/61
[2017-11-03] MEDS: levoFLOXACIN 500mg tablet PO SCH (11:19)
[2017-11-03 20:00] VITALS: BP 126/67
[2017-11-03] MEDS: docusate sod 250mg capsule PO SCH (20:53)
[2017-11-03] MEDS: Insulin Detemir pen SQ SCH (21:00)
[2017-11-04] VITALS (11 sets, daily range): BP systolic 113–157; BP diastolic 51–71
[2017-11-04] MEDS: HYDROcodone/acetaminophen 10/325mg tab PO PRN ×3 (01:00→21:14)
[2017-11-04] MEDS: ipratropium 0.5 MG/2.5ML nebule IH SCH ×4 (02:46→20:10)
[2017-11-04] MEDS: LACTOBACILLUS RHAMNOSUS GG 15 billion unit sprinkle caps PO SCH (07:22)
[2017-11-04] MEDS: levoTHYROXINE 25mcg tablet PO SCH (07:22)
[2017-11-04] MEDS: busPIRone 5mg tablet PO SCH ×2 (07:23→19:24)
[2017-11-04] MEDS: aripiprazole 5mg tablet PO SCH (07:23)
[2017-11-04] MEDS: traZODone 150mg tablet PO SCH (07:24)
[2017-11-04] MEDS: pregabalin 75mg capsule PO SCH ×3 (07:24→20:21)
[2017-11-04] MEDS: ferrous gluconate 324mg tablet PO SCH ×2 (07:24→19:24)
[2017-11-04] MEDS: Terazosin 1mg capsule PO SCH (07:24)
[2017-11-04] MEDS: lisinopril 10 MG tablet PO SCH (07:25)
[2017-11-04] MEDS: FLUoxetine 20mg capsule PO SCH (07:25)
[2017-11-04 09:59] LABS: BASOPHILS % (AUTO) 0 % (0-1); EOSINOPHILS # (AUTO) 0.2 X10'3 (0-0.9); EOSINOPHILS % (AUTO) 3.5 % (0-6); HEMATOCRIT 26.8 % (42.0-52.0); HEMOGLOBIN 8.4 g/dl (14.0-17.9); LYMPHOCYTES # (AUTO) 0.8 X10'3 (1.1-4.8); LYMPHOCYTES % (AUTO) 11.5 % (21-51); MEAN CORPUSCULAR HGB CONC 31.1 % (33.0-36.5); MEAN CORPUSCULAR VOLUME 73.9 FL (78-98); MEAN PLATELET VOLUME 8.9 FL (7.4-10.4); MONOCYTES # (AUTO) 0.5 X10'3 (0-0.9); NEUTROPHILS # (AUTO) 5.3 X10'3 (1.8-7.7); PLATELET COUNT 283 X10'3 (140-440); RED BLOOD COUNT 3.63 X10'6 (4.70-6.10); RED CELL DISTRIBUTION WIDTH 23.8 % (11.5-14.5); WHITE BLOOD COUNT 6.8 X10'3 (4.5-11.0)
[2017-11-04 10:17] LABS: ALANINE AMINOTRANSFERASE 128 U/L (12-78); ALBUMIN 1.6 G/DL (3.4-5.0); ALBUMIN/GLOBULIN RATIO 0.3 (1.1-1.5); ALKALINE PHOSPHATASE 278 IU/L (46-116); ANION GAP 6 (8-16); ASPARTATE AMINO TRANSFERASE 143 U/L (10-37); BILIRUBIN,TOTAL 0.4 MG/DL (0.1-1.0); BLOOD UREA NITROGEN 18 MG/DL (7-18); CALCIUM 8.1 MG/DL (8.5-10.1); CHLORIDE 105 MMOL/L (99-107); POTASSIUM 3.9 MMOL/L (3.5-5.1); SODIUM 142 MMOL/L (135-145); TOTAL CARBON DIOXIDE 30.8 MMOL/L (24-32); TOTAL PROTEIN 6.3 G/DL (6.4-8.2); eGFR 84 ML/MIN
[2017-11-04 10:38] LABS: GLUCOSE 176 MG/DL (70-104)
[2017-11-04] MEDS: levoFLOXACIN 500mg tablet PO SCH (11:48)
[2017-11-04] MEDS ORDERED: traZODone 150mg tablet PO SCH (12:26)
[2017-11-04 13:13] LABS: MAGNESIUM 1.5 MG/DL (1.5-2.4)
[2017-11-04] MEDS ORDERED: tPA-cathflo 2 MG/2 ml IV flush ONE (14:20)
[2017-11-04] MEDS ORDERED: tPA-cathflo 2 MG/2 ml IV flush IVF ONE (14:35)
[2017-11-04] MEDS ORDERED: magnesium 2GM in 50ml NS 50 ML IV ONE (17:20)
[2017-11-04] MEDS: morphine 2 MG/ML inj. syringe IV PRN ×2 (17:31→23:33)
[2017-11-04] MEDS: docusate sod 250mg capsule PO SCH (19:24)
[2017-11-04] MEDS: Insulin Detemir pen SQ SCH (21:00)
[2017-11-05] MEDS: morphine 2 MG/ML inj. syringe IV PRN ×4 (02:50→19:15)
[2017-11-05] MEDS: ipratropium 0.5 MG/2.5ML nebule IH SCH ×4 (02:59→20:57)
[2017-11-05 06:21] LABS: BASOPHILS % (AUTO) 0.4 % (0-1); EOSINOPHILS # (AUTO) 0.1 X10'3 (0-0.9); EOSINOPHILS % (AUTO) 1.8 % (0-6); HEMATOCRIT 26.5 % (42.0-52.0); HEMOGLOBIN 8.6 g/dl (14.0-17.9); LYMPHOCYTES # (AUTO) 0.7 X10'3 (1.1-4.8); LYMPHOCYTES % (AUTO) 8.3 % (21-51); MEAN CORPUSCULAR HEMOGLOBIN 23.9 PG (27.0-31.0); MEAN CORPUSCULAR HGB CONC 32.6 % (33.0-36.5); MEAN CORPUSCULAR VOLUME 73.4 FL (78-98); MEAN PLATELET VOLUME 9.7 FL (7.4-10.4); MONOCYTES # (AUTO) 0.5 X10'3 (0-0.9); MONOCYTES % (AUTO) 6.7 % (2-12); NEUTROPHILS # (AUTO) 6.8 X10'3 (1.8-7.7); NEUTROPHILS % (AUTO) 82.8 % (42-75); PLATELET COUNT 301 X10'3 (140-440); RED BLOOD COUNT 3.62 X10'6 (4.70-6.10); RED CELL DISTRIBUTION WIDTH 22.2 % (11.5-14.5); WHITE BLOOD COUNT 8.1 X10'3 (4.5-11.0)
[2017-11-05 06:56] LABS: ALANINE AMINOTRANSFERASE 122 U/L (12-78); ALBUMIN 1.6 G/DL (3.4-5.0); ALBUMIN/GLOBULIN RATIO 0.3 (1.1-1.5); ALKALINE PHOSPHATASE 286 IU/L (46-116); ANION GAP 4 (8-16); ASPARTATE AMINO TRANSFERASE 141 U/L (10-37); BILIRUBIN,TOTAL 0.4 MG/DL (0.1-1.0); BLOOD UREA NITROGEN 17 MG/DL (7-18); BUN/CREATININE RATIO 15.5 (5.4-32.0); CALCIUM 8.2 MG/DL (8.5-10.1); CHLORIDE 106 MMOL/L (99-107); GLUCOSE 150 MG/DL (70-104); POTASSIUM 4.2 MMOL/L (3.5-5.1); SODIUM 144 MMOL/L (135-145); TOTAL PROTEIN 6.3 G/DL (6.4-8.2); eGFR 67 ML/MIN
[2017-11-05] MEDS: Terazosin 1mg capsule PO SCH (07:28)
[2017-11-05] MEDS: FLUoxetine 20mg capsule PO SCH (07:40)
[2017-11-05] MEDS: lisinopril 10 MG tablet PO SCH (07:40)
[2017-11-05] MEDS: busPIRone 5mg tablet PO SCH ×2 (07:41→19:14)
[2017-11-05] MEDS: pregabalin 75mg capsule PO SCH ×3 (07:41→21:44)
[2017-11-05] MEDS: HYDROcodone/acetaminophen 10/325mg tab PO PRN ×2 (07:41→21:45)
[2017-11-05] MEDS: levoTHYROXINE 25mcg tablet PO SCH (07:41)
[2017-11-05] MEDS: aripiprazole 5mg tablet PO SCH (07:41)
[2017-11-05] MEDS: ferrous gluconate 324mg tablet PO SCH ×2 (07:41→19:14)
[2017-11-05] MEDS: LACTOBACILLUS RHAMNOSUS GG 15 billion unit sprinkle caps PO SCH (07:43)
[2017-11-05 08:00] VITALS: BP 108/60
[2017-11-05] MEDS ORDERED: tPA-cathflo 2mg/2ml IV flush 10 MG in normal saline 100ml IV soln 40 ML ICATH ONE (09:45)
[2017-11-05 11:00] VITALS: BP 106/54
[2017-11-05] MEDS: levoFLOXACIN 500mg tablet PO SCH (11:24)
[2017-11-05 19:00] VITALS: BP 131/72
[2017-11-05] MEDS: Insulin Detemir pen SQ SCH (21:00)
[2017-11-05] MEDS: docusate sod 250mg capsule PO SCH (21:44)
[2017-11-05] MEDS: traZODone 150mg tablet PO SCH (21:44)
[2017-11-06] VITALS: BP 123/71
[2017-11-06] MEDS: morphine 2 MG/ML inj. syringe IV PRN ×6 (01:39→22:58)
[2017-11-06] MEDS: ipratropium 0.5 MG/2.5ML nebule IH SCH ×4 (03:00→21:39)
[2017-11-06 05:25] LABS: BASOPHILS % (AUTO) 0.2 % (0-1); EOSINOPHILS # (AUTO) 0.3 X10'3 (0-0.9); HEMATOCRIT 27.5 % (42.0-52.0); HEMOGLOBIN 8.5 g/dl (14.0-17.9); LYMPHOCYTES % (AUTO) 12.7 % (21-51); MEAN CORPUSCULAR HEMOGLOBIN 22.7 PG (27.0-31.0); MEAN CORPUSCULAR HGB CONC 30.9 % (33.0-36.5); MEAN CORPUSCULAR VOLUME 73.5 FL (78-98); MEAN PLATELET VOLUME 8.8 FL (7.4-10.4); MONOCYTES # (AUTO) 0.5 X10'3 (0-0.9); MONOCYTES % (AUTO) 6.2 % (2-12); NEUTROPHILS # (AUTO) 6.3 X10'3 (1.8-7.7); NEUTROPHILS % (AUTO) 76.9 % (42-75); PLATELET COUNT 286 X10'3 (140-440); RED BLOOD COUNT 3.75 X10'6 (4.70-6.10); RED CELL DISTRIBUTION WIDTH 24.1 % (11.5-14.5); WHITE BLOOD COUNT 8.2 X10'3 (4.5-11.0)
[2017-11-06 06:16] LABS: ALANINE AMINOTRANSFERASE 115 U/L (12-78); ALBUMIN 1.7 G/DL (3.4-5.0); ALBUMIN/GLOBULIN RATIO 0.4 (1.1-1.5); ALKALINE PHOSPHATASE 287 IU/L (46-116); ANION GAP 2 (8-16); ASPARTATE AMINO TRANSFERASE 143 U/L (10-37); BILIRUBIN,TOTAL 0.4 MG/DL (0.1-1.0); BLOOD UREA NITROGEN 18 MG/DL (7-18); BUN/CREATININE RATIO 16.4 (5.4-32.0); CALCIUM 7.9 MG/DL (8.5-10.1); CHLORIDE 106 MMOL/L (99-107); GLUCOSE 109 MG/DL (70-104); POTASSIUM 4.3 MMOL/L (3.5-5.1); SODIUM 142 MMOL/L (135-145); TOTAL CARBON DIOXIDE 33.8 MMOL/L (24-32); TOTAL PROTEIN 6.3 G/DL (6.4-8.2); eGFR 67 ML/MIN
[2017-11-06] MEDS: levoTHYROXINE 25mcg tablet PO SCH (07:59)
[2017-11-06] MEDS: lisinopril 10 MG tablet PO SCH (07:59)
[2017-11-06] MEDS: ferrous gluconate 324mg tablet PO SCH ×2 (07:59→20:23)
[2017-11-06] MEDS: pregabalin 75mg capsule PO SCH ×3 (07:59→20:25)
[2017-11-06] MEDS: LACTOBACILLUS RHAMNOSUS GG 15 billion unit sprinkle caps PO SCH (07:59)
[2017-11-06] MEDS: FLUoxetine 20mg capsule PO SCH (07:59)
[2017-11-06] MEDS: busPIRone 5mg tablet PO SCH ×2 (07:59→20:22)
[2017-11-06] MEDS: aripiprazole 5mg tablet PO SCH (07:59)
[2017-11-06 08:00] VITALS: BP 120/71
[2017-11-06] MEDS: Terazosin 1mg capsule PO SCH (08:05)
[2017-11-06] MEDS: levoFLOXACIN 500mg tablet PO SCH (11:07)
[2017-11-06 11:32] VITALS: BP 109/61
[2017-11-06 18:30] VITALS: BP 114/63
[2017-11-06] MEDS: traZODone 150mg tablet PO SCH (20:23)
[2017-11-06] MEDS: docusate sod 250mg capsule PO SCH (20:23)
[2017-11-06] MEDS: HYDROcodone/acetaminophen 10/325mg tab PO PRN (20:24)
[2017-11-06] MEDS: Insulin Detemir pen SQ SCH (21:00)
[2017-11-07] VITALS: BP 146/66
[2017-11-07] MEDS: morphine 2 MG/ML inj. syringe IV PRN ×6 (02:49→21:47)
[2017-11-07] MEDS: ipratropium 0.5 MG/2.5ML nebule IH SCH ×4 (03:00→20:47)
[2017-11-07 05:36] LABS: BASOPHILS % (AUTO) 0.2 % (0-1); EOSINOPHILS # (AUTO) 0.3 X10'3 (0-0.9); EOSINOPHILS % (AUTO) 5.1 % (0-6); HEMATOCRIT 28.1 % (42.0-52.0); HEMOGLOBIN 8.8 g/dl (14.0-17.9); LYMPHOCYTES # (AUTO) 0.8 X10'3 (1.1-4.8); LYMPHOCYTES % (AUTO) 12.5 % (21-51); MEAN CORPUSCULAR HEMOGLOBIN 23.1 PG (27.0-31.0); MEAN CORPUSCULAR HGB CONC 31.2 % (33.0-36.5); MEAN PLATELET VOLUME 9.6 FL (7.4-10.4); MONOCYTES # (AUTO) 0.4 X10'3 (0-0.9); MONOCYTES % (AUTO) 5.9 % (2-12); NEUTROPHILS # (AUTO) 5.1 X10'3 (1.8-7.7); NEUTROPHILS % (AUTO) 76.3 % (42-75); PLATELET COUNT 277 X10'3 (140-440); RED BLOOD COUNT 3.79 X10'6 (4.70-6.10); RED CELL DISTRIBUTION WIDTH 23.8 % (11.5-14.5); WHITE BLOOD COUNT 6.7 X10'3 (4.5-11.0)
[2017-11-07 06:28] LABS: ALANINE AMINOTRANSFERASE 112 U/L (12-78); ALBUMIN 1.7 G/DL (3.4-5.0); ALBUMIN/GLOBULIN RATIO 0.4 (1.1-1.5); ALKALINE PHOSPHATASE 288 IU/L (46-116); ANION GAP 3 (8-16); ASPARTATE AMINO TRANSFERASE 151 U/L (10-37); BILIRUBIN,TOTAL 0.4 MG/DL (0.1-1.0); BLOOD UREA NITROGEN 22 MG/DL (7-18); CALCIUM 8.2 MG/DL (8.5-10.1); CHLORIDE 106 MMOL/L (99-107); GLUCOSE 129 MG/DL (70-104); POTASSIUM 4.2 MMOL/L (3.5-5.1); SODIUM 142 MMOL/L (135-145); TOTAL CARBON DIOXIDE 32.6 MMOL/L (24-32); TOTAL PROTEIN 6.3 G/DL (6.4-8.2); eGFR 75 ML/MIN
[2017-11-07 07:25] VITALS: BP 116/62
[2017-11-07] MEDS: levoTHYROXINE 25mcg tablet PO SCH (08:47)
[2017-11-07] MEDS: LACTOBACILLUS RHAMNOSUS GG 15 billion unit sprinkle caps PO SCH (08:48)
[2017-11-07] MEDS: aripiprazole 5mg tablet PO SCH (08:48)
[2017-11-07] MEDS: busPIRone 5mg tablet PO SCH ×2 (08:49→20:11)
[2017-11-07] MEDS: ferrous gluconate 324mg tablet PO SCH ×2 (08:49→20:11)
[2017-11-07] MEDS: Terazosin 1mg capsule PO SCH (08:50)
[2017-11-07] MEDS: pregabalin 75mg capsule PO SCH ×3 (08:51→20:11)
[2017-11-07] MEDS: lisinopril 10 MG tablet PO SCH (08:52)
[2017-11-07] MEDS: FLUoxetine 20mg capsule PO SCH (08:52)
[2017-11-07 11:54] VITALS: BP 146/66
[2017-11-07] MEDS: levoFLOXACIN 500mg tablet PO SCH (12:04)
[2017-11-07 19:00] VITALS: BP 112/66
[2017-11-07] MEDS: traZODone 150mg tablet PO SCH (20:11)
[2017-11-07] MEDS: docusate sod 250mg capsule PO SCH (20:11)
[2017-11-07] MEDS: HYDROcodone/acetaminophen 10/325mg tab PO PRN (20:19)
[2017-11-07] MEDS: Insulin Detemir pen SQ SCH (21:00)
[2017-11-07 23:00] VITALS: BP 136/73
[2017-11-08] MEDS: morphine 2 MG/ML inj. syringe IV PRN ×8 (00:44→23:29)
[2017-11-08] MEDS: ipratropium 0.5 MG/2.5ML nebule IH SCH ×4 (03:00→23:22)
[2017-11-08 05:33] LABS: BASOPHILS % (AUTO) 0 % (0-1); EOSINOPHILS # (AUTO) 0.2 X10'3 (0-0.9); EOSINOPHILS % (AUTO) 2.5 % (0-6); HEMATOCRIT 26.6 % (42.0-52.0); HEMOGLOBIN 8.3 g/dl (14.0-17.9); LYMPHOCYTES # (AUTO) 0.8 X10'3 (1.1-4.8); LYMPHOCYTES % (AUTO) 13.1 % (21-51); MEAN CORPUSCULAR HEMOGLOBIN 23.1 PG (27.0-31.0); MEAN CORPUSCULAR HGB CONC 31.3 % (33.0-36.5); MEAN CORPUSCULAR VOLUME 73.8 FL (78-98); MONOCYTES # (AUTO) 0.4 X10'3 (0-0.9); MONOCYTES % (AUTO) 7.1 % (2-12); NEUTROPHILS # (AUTO) 4.7 X10'3 (1.8-7.7); NEUTROPHILS % (AUTO) 77.3 % (42-75); PLATELET COUNT 257 X10'3 (140-440); WHITE BLOOD COUNT 6.1 X10'3 (4.5-11.0)
[2017-11-08] MEDS: LACTOBACILLUS RHAMNOSUS GG 15 billion unit sprinkle caps PO SCH (07:12)
[2017-11-08] MEDS: levoTHYROXINE 25mcg tablet PO SCH (07:12)
[2017-11-08] MEDS: ferrous gluconate 324mg tablet PO SCH ×2 (07:13→20:40)
[2017-11-08] MEDS: aripiprazole 5mg tablet PO SCH (07:13)
[2017-11-08] MEDS: busPIRone 5mg tablet PO SCH ×2 (07:13→20:40)
[2017-11-08] MEDS: FLUoxetine 20mg capsule PO SCH (07:14)
[2017-11-08] MEDS: lisinopril 10 MG tablet PO SCH (07:14)
[2017-11-08] MEDS: Terazosin 1mg capsule PO SCH (07:14)
[2017-11-08] MEDS: pregabalin 75mg capsule PO SCH ×3 (07:14→21:55)
[2017-11-08 07:20] LABS: ALANINE AMINOTRANSFERASE 117 U/L (12-78); ALBUMIN 1.7 G/DL (3.4-5.0); ALBUMIN/GLOBULIN RATIO 0.4 (1.1-1.5); ALKALINE PHOSPHATASE 296 IU/L (46-116); ANION GAP 4 (8-16); ASPARTATE AMINO TRANSFERASE 159 U/L (10-37); BILIRUBIN,TOTAL 0.4 MG/DL (0.1-1.0); BLOOD UREA NITROGEN 19 MG/DL (7-18); BUN/CREATININE RATIO 21.1 (5.4-32.0); CALCIUM 8.2 MG/DL (8.5-10.1); CHLORIDE 106 MMOL/L (99-107); GLUCOSE 108 MG/DL (70-104); POTASSIUM 4.1 MMOL/L (3.5-5.1); SODIUM 142 MMOL/L (135-145); TOTAL CARBON DIOXIDE 31.6 MMOL/L (24-32); TOTAL PROTEIN 6.4 G/DL (6.4-8.2); eGFR 84 ML/MIN
[2017-11-08 07:30] VITALS: BP 132/71
[2017-11-08] MEDS: levoFLOXACIN 500mg tablet PO SCH (10:46)
[2017-11-08 11:46] VITALS: BP 122/83
[2017-11-08 19:00] VITALS: BP 121/55
[2017-11-08] MEDS: docusate sod 250mg capsule PO SCH (20:40)
[2017-11-08] MEDS: Insulin Detemir pen SQ SCH (21:00)
[2017-11-08] MEDS: HYDROcodone/acetaminophen 10/325mg tab PO PRN (21:56)
[2017-11-08] MEDS: traZODone 150mg tablet PO SCH (21:56)
[2017-11-08 23:00] VITALS: BP 130/68
[2017-11-09] MEDS: morphine 2 MG/ML inj. syringe IV PRN ×5 (02:44→19:06)
[2017-11-09] MEDS: ipratropium 0.5 MG/2.5ML nebule IH SCH ×4 (05:09→21:13)
[2017-11-09 05:37] LABS: BASOPHILS % (AUTO) 0.1 % (0-1); EOSINOPHILS # (AUTO) 0.2 X10'3 (0-0.9); EOSINOPHILS % (AUTO) 2.5 % (0-6); HEMATOCRIT 28.8 % (42.0-52.0); HEMOGLOBIN 8.9 g/dl (14.0-17.9); LYMPHOCYTES # (AUTO) 1.1 X10'3 (1.1-4.8); LYMPHOCYTES % (AUTO) 15.8 % (21-51); MEAN CORPUSCULAR HEMOGLOBIN 22.7 PG (27.0-31.0); MEAN CORPUSCULAR HGB CONC 30.9 % (33.0-36.5); MEAN CORPUSCULAR VOLUME 73.5 FL (78-98); MEAN PLATELET VOLUME 9.5 FL (7.4-10.4); MONOCYTES # (AUTO) 0.3 X10'3 (0-0.9); MONOCYTES % (AUTO) 5.1 % (2-12); NEUTROPHILS # (AUTO) 5.1 X10'3 (1.8-7.7); NEUTROPHILS % (AUTO) 76.5 % (42-75); PLATELET COUNT 270 X10'3 (140-440); RED BLOOD COUNT 3.91 X10'6 (4.70-6.10); RED CELL DISTRIBUTION WIDTH 23.5 % (11.5-14.5); WHITE BLOOD COUNT 6.7 X10'3 (4.5-11.0)
[2017-11-09 06:19] LABS: ALANINE AMINOTRANSFERASE 118 U/L (12-78); ALBUMIN 1.8 G/DL (3.4-5.0); ALBUMIN/GLOBULIN RATIO 0.4 (1.1-1.5); ALKALINE PHOSPHATASE 335 IU/L (46-116); ANION GAP 3 (8-16); ASPARTATE AMINO TRANSFERASE 162 U/L (10-37); BILIRUBIN,TOTAL 0.4 MG/DL (0.1-1.0); BLOOD UREA NITROGEN 20 MG/DL (7-18); BUN/CREATININE RATIO 18.2 (5.4-32.0); CALCIUM 8.2 MG/DL (8.5-10.1); CHLORIDE 105 MMOL/L (99-107); GLUCOSE 114 MG/DL (70-104); POTASSIUM 4.6 MMOL/L (3.5-5.1); SODIUM 142 MMOL/L (135-145); TOTAL CARBON DIOXIDE 33.9 MMOL/L (24-32); TOTAL PROTEIN 6.8 G/DL (6.4-8.2); eGFR 67 ML/MIN
[2017-11-09 07:00] VITALS: BP 135/70
[2017-11-09] MEDS: HYDROcodone/acetaminophen 10/325mg tab PO PRN ×2 (08:18→16:44)
[2017-11-09] MEDS: Terazosin 1mg capsule PO SCH (08:25)
[2017-11-09] MEDS: levoTHYROXINE 25mcg tablet PO SCH (08:25)
[2017-11-09] MEDS: lisinopril 10 MG tablet PO SCH (08:25)
[2017-11-09] MEDS: ferrous gluconate 324mg tablet PO SCH ×2 (08:26→20:01)
[2017-11-09] MEDS: pregabalin 75mg capsule PO SCH ×2 (08:26→14:25)
[2017-11-09] MEDS: busPIRone 5mg tablet PO SCH ×2 (08:26→20:01)
[2017-11-09] MEDS: FLUoxetine 20mg capsule PO SCH (08:26)
[2017-11-09] MEDS: aripiprazole 5mg tablet PO SCH (08:26)
[2017-11-09] MEDS: LACTOBACILLUS RHAMNOSUS GG 15 billion unit sprinkle caps PO SCH (10:49)
[2017-11-09 11:00] VITALS: BP 114/61
[2017-11-09] MEDS ORDERED: tPA-cathflo 2mg/2ml IV flush 10 MG in normal saline 100ml IV soln 40 ML ICATH ONE ×5 (15:20→16:30)
[2017-11-09 18:40] VITALS: BP 125/72
[2017-11-09] MEDS ORDERED: levoFLOXACIN 500mg tablet PO SCH (20:00)
[2017-11-09] MEDS: Insulin Detemir pen SQ SCH (21:00)
[2017-11-10] VITALS: BP 132/67
[2017-11-10] MEDS: docusate sod 250mg capsule PO SCH ×2 (00:06→20:54)
[2017-11-10] MEDS: traZODone 150mg tablet PO SCH ×2 (00:06→20:55)
[2017-11-10] MEDS: morphine 2 MG/ML inj. syringe IV PRN ×4 (00:07→12:05)
[2017-11-10] MEDS: pregabalin 75mg capsule PO SCH ×4 (00:07→20:55)
[2017-11-10] MEDS: ipratropium 0.5 MG/2.5ML nebule IH SCH ×4 (02:45→20:46)
[2017-11-10] MEDS: levoTHYROXINE 25mcg tablet PO SCH (06:42)
[2017-11-10] MEDS: HYDROcodone/acetaminophen 10/325mg tab PO PRN (06:42)
[2017-11-10 07:52] VITALS: BP 138/70
[2017-11-10] MEDS: busPIRone 5mg tablet PO SCH ×2 (08:17→20:55)
[2017-11-10] MEDS: FLUoxetine 20mg capsule PO SCH (08:17)
[2017-11-10] MEDS: ferrous gluconate 324mg tablet PO SCH ×2 (08:17→20:55)
[2017-11-10] MEDS: LACTOBACILLUS RHAMNOSUS GG 15 billion unit sprinkle caps PO SCH (08:17)
[2017-11-10] MEDS: Terazosin 1mg capsule PO SCH (08:17)
[2017-11-10] MEDS: lisinopril 10 MG tablet PO SCH (08:17)
[2017-11-10] MEDS: aripiprazole 5mg tablet PO SCH (08:56)
[2017-11-10] MEDS ORDERED: tPA-cathflo 2mg/2ml IV flush 10 MG in normal saline 100ml IV soln 40 ML ICATH ONE ×4 (10:00)
[2017-11-10 11:53] VITALS: BP 116/67
[2017-11-10] MEDS: oxyCODONE IR 5mg (immed. release) tablet PO PRN (15:31)
[2017-11-10 19:30] VITALS: BP 114/64
[2017-11-10] MEDS: OXYcodone (OXYCONTIN) Ext Release 15 MG TAB.SR.12H PO SCH (20:55)
[2017-11-10] MEDS: Insulin Detemir pen SQ SCH (21:00)
[2017-11-10 23:30] VITALS: BP 121/67
[2017-11-11] MEDS: ipratropium 0.5 MG/2.5ML nebule IH SCH ×4 (02:30→20:16)
[2017-11-11] MEDS: oxyCODONE IR 5mg (immed. release) tablet PO PRN ×2 (04:59→21:39)
[2017-11-11 05:08] LABS: BASOPHILS % (AUTO) 0.5 % (0-1); EOSINOPHILS # (AUTO) 0.3 X10'3 (0-0.9); EOSINOPHILS % (AUTO) 3.8 % (0-6); HEMATOCRIT 29.4 % (42.0-52.0); HEMOGLOBIN 9.4 g/dl (14.0-17.9); LYMPHOCYTES # (AUTO) 1.9 X10'3 (1.1-4.8); LYMPHOCYTES % (AUTO) 21.6 % (21-51); MEAN CORPUSCULAR HEMOGLOBIN 22.8 PG (27.0-31.0); MEAN CORPUSCULAR HGB CONC 31.8 % (33.0-36.5); MEAN CORPUSCULAR VOLUME 71.5 FL (78-98); MEAN PLATELET VOLUME 9.2 FL (7.4-10.4); MONOCYTES # (AUTO) 0.6 X10'3 (0-0.9); MONOCYTES % (AUTO) 6.6 % (2-12); NEUTROPHILS % (AUTO) 67.5 % (42-75); PLATELET COUNT 224 X10'3 (140-440); RED BLOOD COUNT 4.11 X10'6 (4.70-6.10); RED CELL DISTRIBUTION WIDTH 23.6 % (11.5-14.5); WHITE BLOOD COUNT 8.9 X10'3 (4.5-11.0)
[2017-11-11 05:39] LABS: ALANINE AMINOTRANSFERASE 98 U/L (12-78); ALBUMIN 1.7 G/DL (3.4-5.0); ALBUMIN/GLOBULIN RATIO 0.4 (1.1-1.5); ALKALINE PHOSPHATASE 313 IU/L (46-116); ANION GAP 5 (8-16); ASPARTATE AMINO TRANSFERASE 139 U/L (10-37); BILIRUBIN,TOTAL 0.4 MG/DL (0.1-1.0); BLOOD UREA NITROGEN 18 MG/DL (7-18); BUN/CREATININE RATIO 16.4 (5.4-32.0); C-REACTIVE PROTEIN 1.99 MG/DL (0.0-0.5); CHLORIDE 106 MMOL/L (99-107); GLUCOSE 92 MG/DL (70-104); MAGNESIUM 1.8 MG/DL (1.5-2.4); PHOSPHORUS 4.4 MG/DL (2.3-4.5); POTASSIUM 4.2 MMOL/L (3.5-5.1); SODIUM 141 MMOL/L (135-145); TOTAL CARBON DIOXIDE 29.7 MMOL/L (24-32); TOTAL PROTEIN 6.3 G/DL (6.4-8.2); eGFR 67 ML/MIN
[2017-11-11] MEDS: Terazosin 1mg capsule PO SCH (07:06)
[2017-11-11] MEDS: lisinopril 10 MG tablet PO SCH (07:06)
[2017-11-11] MEDS: FLUoxetine 20mg capsule PO SCH (07:23)
[2017-11-11] MEDS: ferrous gluconate 324mg tablet PO SCH ×2 (07:23→19:37)
[2017-11-11] MEDS: OXYcodone (OXYCONTIN) Ext Release 15 MG TAB.SR.12H PO SCH ×2 (07:23→19:37)
[2017-11-11] MEDS: pregabalin 75mg capsule PO SCH ×3 (07:23→21:32)
[2017-11-11] MEDS: LACTOBACILLUS RHAMNOSUS GG 15 billion unit sprinkle caps PO SCH (07:23)
[2017-11-11] MEDS: busPIRone 5mg tablet PO SCH ×2 (07:23→19:37)
[2017-11-11] MEDS: levoTHYROXINE 25mcg tablet PO SCH (07:23)
[2017-11-11 07:33] VITALS: BP 100/56
[2017-11-11 10:45] VITALS: BP_SYST 83; BP_SYST 85; BP_DIAS 53; BP_DIAS 58
[2017-11-11 11:11] VITALS: BP 90/51
[2017-11-11] MEDS ORDERED: normal saline 1000ml 1,000 ML IV ONE (12:00)
[2017-11-11] MEDS: aripiprazole 5mg tablet PO SCH (12:53)
[2017-11-11] MEDS: normal saline 1000ml 1,000 ML IV SCH ×2 (13:34→22:00)
[2017-11-11 13:42] VITALS: BP 102/58
[2017-11-11 20:00] VITALS: BP 115/60
[2017-11-11] MEDS: Insulin Detemir pen SQ SCH (21:00)
[2017-11-11] MEDS: traZODone 150mg tablet PO SCH (21:32)
[2017-11-11] MEDS: docusate sod 250mg capsule PO SCH (21:32)
[2017-11-12] VITALS: BP 106/61
[2017-11-12] MEDS: ipratropium 0.5 MG/2.5ML nebule IH SCH ×4 (02:23→20:40)
[2017-11-12] MEDS: normal saline 1000ml 1,000 ML IV SCH ×2 (05:00→15:39)
[2017-11-12] MEDS: Terazosin 1mg capsule PO SCH (07:20)
[2017-11-12] MEDS: lisinopril 10 MG tablet PO SCH (07:25)
[2017-11-12] MEDS: LACTOBACILLUS RHAMNOSUS GG 15 billion unit sprinkle caps PO SCH (07:28)
[2017-11-12] MEDS: ferrous gluconate 324mg tablet PO SCH ×2 (07:29→21:09)
[2017-11-12] MEDS: busPIRone 5mg tablet PO SCH ×2 (07:29→21:08)
[2017-11-12] MEDS: FLUoxetine 20mg capsule PO SCH (07:29)
[2017-11-12] MEDS: pregabalin 75mg capsule PO SCH ×3 (07:29→21:09)
[2017-11-12] MEDS: aripiprazole 5mg tablet PO SCH (07:29)
[2017-11-12] MEDS: OXYcodone (OXYCONTIN) Ext Release 15 MG TAB.SR.12H PO SCH ×2 (07:30→21:09)
[2017-11-12] MEDS: levoTHYROXINE 25mcg tablet PO SCH (07:30)
[2017-11-12 08:00] VITALS: BP 104/61
[2017-11-12 11:48] VITALS: BP 130/68
[2017-11-12] MEDS: oxyCODONE IR 5mg (immed. release) tablet PO PRN ×2 (15:38→23:36)
[2017-11-12 19:00] VITALS: BP 127/68
[2017-11-12] MEDS: Insulin Detemir pen SQ SCH (21:00)
[2017-11-12] MEDS: traZODone 150mg tablet PO SCH (21:09)
[2017-11-12] MEDS: docusate sod 250mg capsule PO SCH (21:09)
[2017-11-13] VITALS: BP 122/67
[2017-11-13] MEDS: normal saline 1000ml 1,000 ML IV SCH ×2 (02:07→13:29)
[2017-11-13] MEDS: ipratropium 0.5 MG/2.5ML nebule IH SCH ×4 (03:00→20:28)
[2017-11-13 06:45] VITALS: BP 107/57
[2017-11-13] MEDS: aripiprazole 5mg tablet PO SCH (07:50)
[2017-11-13] MEDS: ferrous gluconate 324mg tablet PO SCH ×2 (07:51→19:53)
[2017-11-13] MEDS: busPIRone 5mg tablet PO SCH ×2 (07:51→19:53)
[2017-11-13] MEDS: levoTHYROXINE 25mcg tablet PO SCH (07:51)
[2017-11-13] MEDS: FLUoxetine 20mg capsule PO SCH (07:51)
[2017-11-13] MEDS: OXYcodone (OXYCONTIN) Ext Release 15 MG TAB.SR.12H PO SCH ×2 (07:51→19:53)
[2017-11-13] MEDS: pregabalin 75mg capsule PO SCH ×3 (07:51→21:17)
[2017-11-13] MEDS: LACTOBACILLUS RHAMNOSUS GG 15 billion unit sprinkle caps PO SCH (07:56)
[2017-11-13] MEDS: lisinopril 10 MG tablet PO SCH (07:57)
[2017-11-13] MEDS: Terazosin 1mg capsule PO SCH (07:57)
[2017-11-13 09:55] LABS: BASOPHILS % (AUTO) 0 % (0-1); EOSINOPHILS # (AUTO) 0.2 X10'3 (0-0.9); EOSINOPHILS % (AUTO) 3.4 % (0-6); HEMATOCRIT 27.5 % (42.0-52.0); HEMOGLOBIN 8.8 g/dl (14.0-17.9); LYMPHOCYTES # (AUTO) 0.8 X10'3 (1.1-4.8); LYMPHOCYTES % (AUTO) 12.1 % (21-51); MEAN CORPUSCULAR HEMOGLOBIN 23.3 PG (27.0-31.0); MEAN CORPUSCULAR HGB CONC 31.9 % (33.0-36.5); MEAN CORPUSCULAR VOLUME 73.1 FL (78-98); MEAN PLATELET VOLUME 8.6 FL (7.4-10.4); MONOCYTES # (AUTO) 0.4 X10'3 (0-0.9); MONOCYTES % (AUTO) 5.9 % (2-12); NEUTROPHILS # (AUTO) 5.3 X10'3 (1.8-7.7); NEUTROPHILS % (AUTO) 78.6 % (42-75); PLATELET COUNT 240 X10'3 (140-440); RED BLOOD COUNT 3.77 X10'6 (4.70-6.10); RED CELL DISTRIBUTION WIDTH 23.7 % (11.5-14.5); WHITE BLOOD COUNT 6.7 X10'3 (4.5-11.0)
[2017-11-13 10:11] LABS: ALBUMIN 1.8 G/DL (3.4-5.0); ANION GAP 6 (8-16); BLOOD UREA NITROGEN 16 MG/DL (7-18); CALCIUM 7.8 MG/DL (8.5-10.1); CHLORIDE 108 MMOL/L (99-107); GLUCOSE 152 MG/DL (70-104); POTASSIUM 4.1 MMOL/L (3.5-5.1); SODIUM 143 MMOL/L (135-145); TOTAL CARBON DIOXIDE 29.5 MMOL/L (24-32); eGFR 75 ML/MIN
[2017-11-13 10:45] VITALS: BP 112/62
[2017-11-13] MEDS ORDERED: heparin 10,000 units/1 ML INJ IV ONE (16:20)
[2017-11-13 17:10] LABS: BASOPHILS % (AUTO) 0.5 % (0-1); EOSINOPHILS # (AUTO) 0.2 X10'3 (0-0.9); EOSINOPHILS % (AUTO) 3.3 % (0-6); HEMATOCRIT 27.4 % (42.0-52.0); HEMOGLOBIN 8.7 g/dl (14.0-17.9); LYMPHOCYTES # (AUTO) 0.9 X10'3 (1.1-4.8); LYMPHOCYTES % (AUTO) 13.7 % (21-51); MEAN CORPUSCULAR HEMOGLOBIN 23.3 PG (27.0-31.0); MEAN CORPUSCULAR HGB CONC 31.8 % (33.0-36.5); MEAN CORPUSCULAR VOLUME 73.3 FL (78-98); MEAN PLATELET VOLUME 9.1 FL (7.4-10.4); MONOCYTES # (AUTO) 0.5 X10'3 (0-0.9); MONOCYTES % (AUTO) 7.5 % (2-12); NEUTROPHILS # (AUTO) 4.9 X10'3 (1.8-7.7); PLATELET COUNT 231 X10'3 (140-440); RED BLOOD COUNT 3.74 X10'6 (4.70-6.10); RED CELL DISTRIBUTION WIDTH 23.5 % (11.5-14.5); WHITE BLOOD COUNT 6.5 X10'3 (4.5-11.0)
[2017-11-13 17:26] LABS: INR 1.1 INR; PARTIAL THROMBOPLASTIN TIME 28 SECONDS (22-32)
[2017-11-13 18:28] LABS: CLARITY,URINE CLEAR (Clear); COLOR,URINE YELLOW (Yellow); GLUCOSE, URINE NEGATIVE (Neg); KETONES,URINE NEGATIVE (Neg); LEUKOCYTE ESTERASE ,URINE NEGATIVE (Neg); NITRITES, URINE NEGATIVE (Neg); OCCULT BLOOD,URINE LARGE (Neg); PH,URINE 5.5 (4.8-8.0); PROTEIN,URINE TRACE mg/dl (Neg); UROBILINOGEN,URINE 0.2 E.U/dL (0.2-1.0)
[2017-11-13 18:39] LABS: UA COLLECTION TYPE NON-SPECIFIED
[2017-11-13 18:49] LABS: BACTERIA,URINE FEW /HPF (Neg); MUCUS STRANDS FEW /LPF (Neg); RBC,URINE 0-2 /HPF (0-2); SQUAMOUS EPITHELIAL CELL,UR FEW /LPF (FEW); WBC,URINE 0-4 /HPF (0-4)
[2017-11-13 19:00] VITALS: BP 135/69
[2017-11-13] MEDS: Insulin Detemir pen SQ SCH (21:00)
[2017-11-13] MEDS: traZODone 150mg tablet PO SCH (21:17)
[2017-11-13] MEDS: docusate sod 250mg capsule PO SCH (21:17)
[2017-11-14] VITALS: BP 143/71
[2017-11-14] MEDS: heparin 10,000 units/1 ML INJ IV PRN (00:31)
[2017-11-14] MEDS: oxyCODONE IR 5mg (immed. release) tablet PO PRN (01:52)
[2017-11-14] MEDS: ipratropium 0.5 MG/2.5ML nebule IH SCH ×4 (02:57→19:32)
[2017-11-14 06:45] VITALS: BP 134/70
[2017-11-14 07:35] LABS: BASOPHILS % (AUTO) 0.6 % (0-1); EOSINOPHILS # (AUTO) 0.2 X10'3 (0-0.9); HEMATOCRIT 27.3 % (42.0-52.0); HEMOGLOBIN 8.8 g/dl (14.0-17.9); LYMPHOCYTES # (AUTO) 1.2 X10'3 (1.1-4.8); LYMPHOCYTES % (AUTO) 19.9 % (21-51); MEAN CORPUSCULAR HEMOGLOBIN 23.3 PG (27.0-31.0); MEAN CORPUSCULAR HGB CONC 32.1 % (33.0-36.5); MEAN CORPUSCULAR VOLUME 72.8 FL (78-98); MEAN PLATELET VOLUME 9.1 FL (7.4-10.4); MONOCYTES # (AUTO) 0.5 X10'3 (0-0.9); MONOCYTES % (AUTO) 8.1 % (2-12); NEUTROPHILS # (AUTO) 4.3 X10'3 (1.8-7.7); NEUTROPHILS % (AUTO) 68.4 % (42-75); PLATELET COUNT 224 X10'3 (140-440); RED BLOOD COUNT 3.75 X10'6 (4.70-6.10); RED CELL DISTRIBUTION WIDTH 23.9 % (11.5-14.5); WHITE BLOOD COUNT 6.2 X10'3 (4.5-11.0)
[2017-11-14] MEDS: Terazosin 1mg capsule PO SCH (08:55)
[2017-11-14] MEDS: levoTHYROXINE 25mcg tablet PO SCH (08:55)
[2017-11-14] MEDS: lisinopril 10 MG tablet PO SCH (08:55)
[2017-11-14] MEDS: busPIRone 5mg tablet PO SCH ×2 (08:55→20:12)
[2017-11-14] MEDS: aripiprazole 5mg tablet PO SCH (08:55)
[2017-11-14] MEDS: ferrous gluconate 324mg tablet PO SCH ×2 (08:55→20:12)
[2017-11-14] MEDS: pregabalin 75mg capsule PO SCH ×3 (08:55→20:12)
[2017-11-14] MEDS: LACTOBACILLUS RHAMNOSUS GG 15 billion unit sprinkle caps PO SCH (08:55)
[2017-11-14] MEDS: FLUoxetine 20mg capsule PO SCH (08:56)
[2017-11-14] MEDS: OXYcodone (OXYCONTIN) Ext Release 15 MG TAB.SR.12H PO SCH ×2 (08:56→20:12)
[2017-11-14 10:45] VITALS: BP 109/60
[2017-11-14 19:05] VITALS: BP 140/76
[2017-11-14] MEDS: traZODone 150mg tablet PO SCH (20:12)
[2017-11-14] MEDS: docusate sod 250mg capsule PO SCH (20:12)
[2017-11-14] MEDS: Insulin Detemir pen SQ SCH (21:00)
[2017-11-15] VITALS: BP 151/77
[2017-11-15] MEDS ORDERED: magnesium 4gm in 100ml NS 100 ML IV PRN (00:20)
[2017-11-15] MEDS ORDERED: potassium Cl 20 mEq SR tablet PO PRN ×2 (00:20)
[2017-11-15] MEDS ORDERED: magnesium Cl slow-release 64mg tablet PO PRN (00:20)
[2017-11-15] MEDS ORDERED: potassium Cl 40MEQ/NS 500ml 500 ML IV PRN ×2 (00:20)
[2017-11-15] MEDS ORDERED: magnesium 2GM in 50ml NS 50 ML IV PRN (00:20)
[2017-11-15 02:39] LABS: BASOPHILS # (AUTO) 0.1 X10'3 (0-0.2); BASOPHILS % (AUTO) 0.9 % (0-1); EOSINOPHILS # (AUTO) 0.1 X10'3 (0-0.9); EOSINOPHILS % (AUTO) 1.9 % (0-6); HEMATOCRIT 25.5 % (42.0-52.0); HEMOGLOBIN 8.1 g/dl (14.0-17.9); LYMPHOCYTES # (AUTO) 1.1 X10'3 (1.1-4.8); LYMPHOCYTES % (AUTO) 16.9 % (21-51); MEAN CORPUSCULAR HGB CONC 31.9 % (33.0-36.5); MEAN CORPUSCULAR VOLUME 72.3 FL (78-98); MONOCYTES # (AUTO) 0.5 X10'3 (0-0.9); MONOCYTES % (AUTO) 8.6 % (2-12); NEUTROPHILS # (AUTO) 4.5 X10'3 (1.8-7.7); NEUTROPHILS % (AUTO) 71.7 % (42-75); PLATELET COUNT 225 X10'3 (140-440); RED BLOOD COUNT 3.52 X10'6 (4.70-6.10); RED CELL DISTRIBUTION WIDTH 23.8 % (11.5-14.5); WHITE BLOOD COUNT 6.3 X10'3 (4.5-11.0)
[2017-11-15] MEDS: ipratropium 0.5 MG/2.5ML nebule IH SCH ×4 (03:00→21:52)
[2017-11-15] MEDS: oxyCODONE IR 5mg (immed. release) tablet PO PRN (05:25)
[2017-11-15 07:00] VITALS: BP 123/72
[2017-11-15] MEDS: heparin 10,000 units/1 ML INJ IV PRN (07:27)
[2017-11-15] MEDS: levoTHYROXINE 25mcg tablet PO SCH (07:29)
[2017-11-15] MEDS: lisinopril 10 MG tablet PO SCH (07:30)
[2017-11-15] MEDS: aripiprazole 5mg tablet PO SCH (07:30)
[2017-11-15] MEDS: FLUoxetine 20mg capsule PO SCH (07:31)
[2017-11-15] MEDS: pregabalin 75mg capsule PO SCH ×3 (07:31→20:13)
[2017-11-15] MEDS: ferrous gluconate 324mg tablet PO SCH ×2 (07:31→19:22)
[2017-11-15] MEDS: busPIRone 5mg tablet PO SCH ×2 (07:31→19:22)
[2017-11-15] MEDS: Terazosin 1mg capsule PO SCH (07:32)
[2017-11-15] MEDS: OXYcodone (OXYCONTIN) Ext Release 15 MG TAB.SR.12H PO SCH ×2 (07:54→19:22)
[2017-11-15] MEDS: LACTOBACILLUS RHAMNOSUS GG 15 billion unit sprinkle caps PO SCH (07:54)
[2017-11-15 11:00] VITALS: BP 105/63
[2017-11-15 20:00] VITALS: BP 120/61
[2017-11-15] MEDS: traZODone 150mg tablet PO SCH (20:12)
[2017-11-15] MEDS: docusate sod 250mg capsule PO SCH (20:12)
[2017-11-15] MEDS: enoxaparin 80mg/0.8ml syringe SUBCUT SCH (20:14)
[2017-11-15] MEDS: Insulin Detemir pen SQ SCH (21:00)
[2017-11-16] VITALS: BP 126/70
[2017-11-16] MEDS: ipratropium 0.5 MG/2.5ML nebule IH SCH ×4 (02:55→20:16)
[2017-11-16 05:50] LABS: BASOPHILS % (AUTO) 0.6 % (0-1); EOSINOPHILS # (AUTO) 0.2 X10'3 (0-0.9); EOSINOPHILS % (AUTO) 3.6 % (0-6); HEMOGLOBIN 8.3 g/dl (14.0-17.9); LYMPHOCYTES % (AUTO) 18.3 % (21-51); MAGNESIUM 1.6 MG/DL (1.5-2.4); MEAN CORPUSCULAR HEMOGLOBIN 23.5 PG (27.0-31.0); MEAN CORPUSCULAR HGB CONC 31.9 % (33.0-36.5); MEAN CORPUSCULAR VOLUME 73.8 FL (78-98); MEAN PLATELET VOLUME 9.7 FL (7.4-10.4); MONOCYTES # (AUTO) 0.6 X10'3 (0-0.9); MONOCYTES % (AUTO) 10.7 % (2-12); NEUTROPHILS # (AUTO) 3.7 X10'3 (1.8-7.7); NEUTROPHILS % (AUTO) 66.8 % (42-75); PLATELET COUNT 231 X10'3 (140-440); POTASSIUM 3.7 MMOL/L (3.5-5.1); RED BLOOD COUNT 3.52 X10'6 (4.70-6.10); RED CELL DISTRIBUTION WIDTH 23.5 % (11.5-14.5); WHITE BLOOD COUNT 5.5 X10'3 (4.5-11.0)
[2017-11-16] MEDS: oxyCODONE IR 5mg (immed. release) tablet PO PRN (06:15)
[2017-11-16] MEDS: busPIRone 5mg tablet PO SCH ×2 (07:18→20:06)
[2017-11-16] MEDS: FLUoxetine 20mg capsule PO SCH (07:19)
[2017-11-16] MEDS: aripiprazole 5mg tablet PO SCH (07:19)
[2017-11-16] MEDS: pregabalin 75mg capsule PO SCH ×3 (07:20→20:06)
[2017-11-16] MEDS: lisinopril 10 MG tablet PO SCH (07:21)
[2017-11-16] MEDS: Terazosin 1mg capsule PO SCH (07:22)
[2017-11-16] MEDS: ferrous gluconate 324mg tablet PO SCH ×2 (07:23→20:06)
[2017-11-16] MEDS: levoTHYROXINE 25mcg tablet PO SCH (07:25)
[2017-11-16] MEDS: enoxaparin 80mg/0.8ml syringe SUBCUT SCH ×2 (07:27→20:07)
[2017-11-16] MEDS: LACTOBACILLUS RHAMNOSUS GG 15 billion unit sprinkle caps PO SCH (07:33)
[2017-11-16] MEDS: OXYcodone (OXYCONTIN) Ext Release 15 MG TAB.SR.12H PO SCH ×2 (07:33→20:06)
[2017-11-16 08:00] VITALS: BP 137/70
[2017-11-16 20:00] VITALS: BP 122/65
[2017-11-16] MEDS: docusate sod 250mg capsule PO SCH (20:06)
[2017-11-16] MEDS: traZODone 150mg tablet PO SCH (20:06)
[2017-11-16] MEDS: Insulin Detemir pen SQ SCH (20:10)
[2017-11-17] VITALS: BP 138/74
[2017-11-17] MEDS: ipratropium 0.5 MG/2.5ML nebule IH SCH ×3 (03:00→15:25)
[2017-11-17 05:28] LABS: BASOPHILS % (AUTO) 0.6 % (0-1); EOSINOPHILS # (AUTO) 0.1 X10'3 (0-0.9); EOSINOPHILS % (AUTO) 2.7 % (0-6); HEMATOCRIT 24.4 % (42.0-52.0); HEMOGLOBIN 7.9 g/dl (14.0-17.9); LYMPHOCYTES % (AUTO) 19.8 % (21-51); MEAN CORPUSCULAR HEMOGLOBIN 23.5 PG (27.0-31.0); MEAN CORPUSCULAR HGB CONC 32.4 % (33.0-36.5); MEAN CORPUSCULAR VOLUME 72.5 FL (78-98); MEAN PLATELET VOLUME 9.9 FL (7.4-10.4); MONOCYTES # (AUTO) 0.6 X10'3 (0-0.9); MONOCYTES % (AUTO) 11.6 % (2-12); NEUTROPHILS # (AUTO) 3.4 X10'3 (1.8-7.7); NEUTROPHILS % (AUTO) 65.3 % (42-75); PLATELET COUNT 218 X10'3 (140-440); RED BLOOD COUNT 3.36 X10'6 (4.70-6.10); RED CELL DISTRIBUTION WIDTH 23.3 % (11.5-14.5); WHITE BLOOD COUNT 5.2 X10'3 (4.5-11.0)
[2017-11-17 05:59] LABS: MAGNESIUM 1.7 MG/DL (1.5-2.4); POTASSIUM 4.1 MMOL/L (3.5-5.1)
[2017-11-17 08:00] VITALS: BP 136/72
[2017-11-17] MEDS: oxyCODONE IR 5mg (immed. release) tablet PO PRN (08:25)
[2017-11-17] MEDS: lisinopril 10 MG tablet PO SCH (08:25)
[2017-11-17] MEDS: enoxaparin 80mg/0.8ml syringe SUBCUT SCH (08:25)
[2017-11-17] MEDS: aripiprazole 5mg tablet PO SCH (08:25)
[2017-11-17] MEDS: FLUoxetine 20mg capsule PO SCH (08:25)
[2017-11-17] MEDS: pregabalin 75mg capsule PO SCH ×2 (08:26→13:29)
[2017-11-17] MEDS: Terazosin 1mg capsule PO SCH (08:26)
[2017-11-17] MEDS: levoTHYROXINE 25mcg tablet PO SCH (08:26)
[2017-11-17] MEDS: LACTOBACILLUS RHAMNOSUS GG 15 billion unit sprinkle caps PO SCH (08:26)
[2017-11-17] MEDS: busPIRone 5mg tablet PO SCH (08:26)
[2017-11-17] MEDS: OXYcodone (OXYCONTIN) Ext Release 15 MG TAB.SR.12H PO SCH (08:38)
[2017-11-17] MEDS: ferrous gluconate 324mg tablet PO SCH (08:38)
[2017-11-17 11:00] VITALS: BP 132/59
== END 2017-11-17 17:05 | DRG 177 ==
LOC: ER 18:16 → ED HOLD 22:34 → SUR 3N 23:34
PROVIDERS: ADMIT Internal Medicine; ATTEND Family Medicine
PROC: BW241ZZ Computerized Tomography (CT Scan) of Chest and Abdomen using Low Osmolar Contrast (ICD-10-PCS; 2017-10-26)
PROC: 30233N1 Transfusion of Nonautologous Red Blood Cells into Peripheral Vein, Percutaneous Approach (ICD-10-PCS; principal; 2017-10-27)
PROC: BW211ZZ Computerized Tomography (CT Scan) of Abdomen and Pelvis using Low Osmolar Contrast (ICD-10-PCS; 2017-10-27)
PROC: 0W9930Z Drainage of Right Pleural Cavity with Drainage Device, Percutaneous Approach (ICD-10-PCS; 2017-10-28)
PROC: 3E0L3GC Introduction of Other Therapeutic Substance into Pleural Cavity, Percutaneous Approach (ICD-10-PCS; 2017-11-02)
PROC: 0W9930Z Drainage of Right Pleural Cavity with Drainage Device, Percutaneous Approach (ICD-10-PCS; 2017-11-04)
DX: J86.9 Pyothorax without fistula (principal); E43 Unspecified severe protein-calorie malnutrition; J18.1 Lobar pneumonia, unspecified organism; J90 Pleural effusion, not elsewhere classified; I82.622 Acute embolism and thrombosis of deep veins of left upper extremity; J94.2 Hemothorax; E11.22 Type 2 diabetes mellitus with diabetic chronic kidney disease; E11.40 Type 2 diabetes mellitus with diabetic neuropathy, unspecified; Z99.81 Dependence on supplemental oxygen; J44.0 Chronic obstructive pulmonary disease with (acute) lower respiratory infection; I82.612 Acute embolism and thrombosis of superficial veins of left upper extremity; I82.719 Chronic embolism and thrombosis of superficial veins of unspecified upper extremity; B17.9 Acute viral hepatitis, unspecified; K74.60 Unspecified cirrhosis of liver; B18.2 Chronic viral hepatitis C; D63.8 Anemia in other chronic diseases classified elsewhere; R04.0 Epistaxis; F41.1 Generalized anxiety disorder; E87.5 Hyperkalemia; F31.9 Bipolar disorder, unspecified; E03.9 Hypothyroidism, unspecified; F14.10 Cocaine abuse, uncomplicated; I12.9 Hypertensive chronic kidney disease with stage 1 through stage 4 chronic kidney disease, or unspecified chronic kidney disease; I25.10 Atherosclerotic heart disease of native coronary artery without angina pectoris; N18.9 Chronic kidney disease, unspecified; N40.0 Benign prostatic hyperplasia without lower urinary tract symptoms; Z68.28 Body mass index [BMI] 28.0-28.9, adult; Z79.82 Long term (current) use of aspirin; Z79.02 Long term (current) use of antithrombotics/antiplatelets; Z79.899 Other long term (current) drug therapy; Z87.01 Personal history of pneumonia (recurrent); Z87.891 Personal history of nicotine dependence
CPT/HCPCS: 32557; 36415; 49406; 71045; 71046; 71250; 71260; 74178; 76937; 80048; 80053; 80305; 81001; 82103; 82945; 82948; 83540; 83550; 83605; 83615; 83735; 83880; 83986; 84100; 84132; 84145; 84157; 84484; 85025; 85610; 85730; 86140; 86803; 86885; 86900; 86901; 86920; 87040; 87070; 87075; 88108; 88305; 89051; 93005; 93306; 93971; 94640; 94760; 96361; 96365; 96368; 99285; A4333; A6212; A6223; A6257; A6449; J1644; J1650; J1956; J2001; J2270; J2405; J2543; J2997; J3370; J3475; J7030; P9016; Q9967

== ENCOUNTER 2017-11-21 10:13 | Inpatient (IN) | payer MEDICARE, MEDICAID ==
[~2017-11-21] VITALS: Ht 167.6 cm; Wt 81.0 kg
[~2017-11-21 10:13] MED LIST changes: -NITR0.4T51 SL
[2017-11-21] MEDS ORDERED: iohexol 350MG/ML 100ml bottle IV ONE (10:49)
[2017-11-21 11:26] LABS: BASOPHILS % (AUTO) 0 % (0-1); EOSINOPHILS # (AUTO) 0.1 X10'3 (0-0.9); EOSINOPHILS % (AUTO) 2.1 % (0-6); HEMATOCRIT 24.8 % (42.0-52.0); HEMOGLOBIN 7.6 g/dl (14.0-17.9); LYMPHOCYTES # (AUTO) 0.4 X10'3 (1.1-4.8); LYMPHOCYTES % (AUTO) 6.6 % (21-51); MEAN CORPUSCULAR HEMOGLOBIN 22.5 PG (27.0-31.0); MEAN CORPUSCULAR HGB CONC 30.7 % (33.0-36.5); MEAN CORPUSCULAR VOLUME 73.4 FL (78-98); MEAN PLATELET VOLUME 8.7 FL (7.4-10.4); MONOCYTES # (AUTO) 0.4 X10'3 (0-0.9); MONOCYTES % (AUTO) 6.6 % (2-12); NEUTROPHILS # (AUTO) 4.9 X10'3 (1.8-7.7); NEUTROPHILS % (AUTO) 84.7 % (42-75); PLATELET COUNT 198 X10'3 (140-440); RED BLOOD COUNT 3.38 X10'6 (4.70-6.10); RED CELL DISTRIBUTION WIDTH 23.3 % (11.5-14.5); WHITE BLOOD COUNT 5.8 X10'3 (4.5-11.0)
[2017-11-21 11:34] LABS: INR 1.1 INR; PARTIAL THROMBOPLASTIN TIME 33 SECONDS (22-32); PROTHROMBIN TIME 11.3 SECONDS (9.0-12.0)
[2017-11-21 11:48] LABS: ALANINE AMINOTRANSFERASE 71 U/L (12-78); ALBUMIN 2.1 G/DL (3.4-5.0); ALBUMIN/GLOBULIN RATIO 0.4 (1.1-1.5); ALKALINE PHOSPHATASE 274 IU/L (46-116); ANION GAP 3 (8-16); ASPARTATE AMINO TRANSFERASE 100 U/L (10-37); BILIRUBIN,TOTAL 0.4 MG/DL (0.1-1.0); BLOOD UREA NITROGEN 14 MG/DL (7-18); CALCIUM 7.9 MG/DL (8.5-10.1); CHLORIDE 106 MMOL/L (99-107); GLUCOSE 180 MG/DL (70-104); POTASSIUM 4.1 MMOL/L (3.5-5.1); SODIUM 140 MMOL/L (135-145); TOTAL CARBON DIOXIDE 31.2 MMOL/L (24-32); TOTAL PROTEIN 7.1 G/DL (6.4-8.2); eGFR 75 ML/MIN
[2017-11-21] MEDS ORDERED: glucagon, human recombinant 1mg kit SUBCUT PRN (13:25)
[2017-11-21] MEDS ORDERED: magnesium 2GM in 50ml NS 50 ML IV PRN (13:25)
[2017-11-21] MEDS ORDERED: magnesium 4gm in 100ml NS 100 ML IV PRN (13:25)
[2017-11-21] MEDS ORDERED: dextrose 50%-water 50ml dispensing syringe IV PRN ×2 (13:25)
[2017-11-21] MEDS ORDERED: magnesium hydroxide 30ml (MOM) UD suspension PO PRN (13:25)
[2017-11-21] MEDS ORDERED: dextrose ORAL solution 15 GM/59 ML bottle PO PRN (13:25)
[2017-11-21] MEDS ORDERED: potassium Cl 40MEQ/NS 500ml 500 ML IV PRN ×2 (13:25)
[2017-11-21] MEDS ORDERED: acetaminophen 325mg tablet PO PRN ×2 (13:25)
[2017-11-21] MEDS ORDERED: morphine 2 MG/ML inj. syringe IV PRN (13:25)
[2017-11-21] MEDS ORDERED: MESSAGE TO PHARMACY PO ONE (13:25)
[2017-11-21] MEDS ORDERED: magnesium Cl slow-release 64mg tablet PO PRN (13:25)
[2017-11-21] MEDS ORDERED: potassium Cl 20 mEq SR tablet PO PRN ×2 (13:25)
[2017-11-21] MEDS ORDERED: ondansetron/PF 4mg/2ml inj IV PRN (13:25)
[2017-11-21] MEDS: ipratropium/albuterol 3ml nebule IH SCH ×2 (15:38→20:39)
[2017-11-21 18:46] VITALS: BP 124/65
[2017-11-21 19:00] VITALS: BP 145/78
[2017-11-21] MEDS: insulin glargine (Lantus) pen - multi-dose SQ SCH (21:00)
[2017-11-21] MEDS: pregabalin 75mg capsule PO SCH (21:25)
[2017-11-21] MEDS: busPIRone 5mg tablet PO SCH (21:26)
[2017-11-21] MEDS: ferrous gluconate 324mg tablet PO SCH (21:26)
[2017-11-21] MEDS: temazepam 15mg capsule PO PRN (21:30)
[2017-11-22] VITALS: BP 140/75
[2017-11-22] MEDS: ipratropium/albuterol 3ml nebule IH SCH ×4 (02:28→20:32)
[2017-11-22 06:45] LABS: BASOPHILS % (AUTO) 0.3 % (0-1); EOSINOPHILS # (AUTO) 0.1 X10'3 (0-0.9); EOSINOPHILS % (AUTO) 2.9 % (0-6); HEMATOCRIT 23.5 % (42.0-52.0); HEMOGLOBIN 7.4 g/dl (14.0-17.9); LYMPHOCYTES # (AUTO) 0.8 X10'3 (1.1-4.8); LYMPHOCYTES % (AUTO) 14.8 % (21-51); MEAN CORPUSCULAR HGB CONC 31.7 % (33.0-36.5); MEAN CORPUSCULAR VOLUME 72.5 FL (78-98); MEAN PLATELET VOLUME 9.2 FL (7.4-10.4); MONOCYTES # (AUTO) 0.5 X10'3 (0-0.9); MONOCYTES % (AUTO) 9.7 % (2-12); NEUTROPHILS # (AUTO) 3.7 X10'3 (1.8-7.7); NEUTROPHILS % (AUTO) 72.3 % (42-75); PLATELET COUNT 175 X10'3 (140-440); RED BLOOD COUNT 3.24 X10'6 (4.70-6.10); WHITE BLOOD COUNT 5.1 X10'3 (4.5-11.0)
[2017-11-22 07:00] VITALS: BP 138/65
[2017-11-22 07:01] LABS: ANION GAP 3 (8-16); BLOOD UREA NITROGEN 13 MG/DL (7-18); BUN/CREATININE RATIO 14.4 (5.4-32.0); CALCIUM 8.1 MG/DL (8.5-10.1); CHLORIDE 107 MMOL/L (99-107); GLUCOSE 125 MG/DL (70-104); MAGNESIUM 1.7 MG/DL (1.5-2.4); POTASSIUM 3.9 MMOL/L (3.5-5.1); SODIUM 142 MMOL/L (135-145); TOTAL CARBON DIOXIDE 31.7 MMOL/L (24-32); eGFR 84 ML/MIN
[2017-11-22] MEDS: cefTRIAXone 1g/NS 100ml IVPB 100 ML IV SCH (07:51)
[2017-11-22] MEDS: levoTHYROXINE 25mcg tablet PO SCH (07:51)
[2017-11-22] MEDS: aripiprazole 5mg tablet PO SCH (07:52)
[2017-11-22] MEDS: busPIRone 5mg tablet PO SCH ×2 (07:52→21:20)
[2017-11-22] MEDS: ferrous gluconate 324mg tablet PO SCH ×2 (07:53→21:19)
[2017-11-22] MEDS: traZODone 150mg tablet PO SCH (07:53)
[2017-11-22] MEDS: Terazosin 1mg capsule PO SCH (07:54)
[2017-11-22] MEDS: pregabalin 75mg capsule PO SCH ×3 (07:54→21:20)
[2017-11-22] MEDS: amLODIPine 5mg tablet PO SCH (07:54)
[2017-11-22] MEDS: clopidogrel 75mg tablet PO SCH (07:55)
[2017-11-22] MEDS: FLUoxetine 20mg capsule PO SCH (07:55)
[2017-11-22] MEDS: K and/or MAG REPLACEMENT MC SCH (07:56)
[2017-11-22] MEDS: lisinopril 10 MG tablet PO SCH (07:56)
[2017-11-22] MEDS ORDERED: MESSAGE TO NURSING PO NR (10:00)
[2017-11-22] MEDS: HYDROcodone/acetaminophen 5mg/325mg tablet PO PRN ×3 (11:12→21:21)
[2017-11-22 11:39] VITALS: BP 127/62
[2017-11-22] MEDS: lactobacillus rhamnosus 10,000 MMU CELLS/CAPSULE PO SCH (17:23)
[2017-11-22 20:00] VITALS: BP 137/77
[2017-11-22] MEDS: insulin glargine (Lantus) pen - multi-dose SQ SCH (21:00)
[2017-11-22] MEDS: temazepam 15mg capsule PO PRN (21:20)
[2017-11-23] MEDS ORDERED: albuterol 2.5 MG/3 ML nebule ONE (01:10)
[2017-11-23] MEDS: methylPREDNISolone sod succ 125mg/2ml vial IV SCH ×2 (01:49→07:55)
[2017-11-23 03:31] VITALS: BP 152/85
[2017-11-23] MEDS: ipratropium/albuterol 3ml nebule IH SCH ×4 (04:26→20:49)
[2017-11-23 06:13] LABS: BASOPHILS % (AUTO) 0 % (0-1); EOSINOPHILS # (AUTO) 0.1 X10'3 (0-0.9); EOSINOPHILS % (AUTO) 2.7 % (0-6); HEMATOCRIT 29.8 % (42.0-52.0); HEMOGLOBIN 9.5 g/dl (14.0-17.9); LYMPHOCYTES # (AUTO) 0.7 X10'3 (1.1-4.8); LYMPHOCYTES % (AUTO) 13.2 % (21-51); MEAN CORPUSCULAR HEMOGLOBIN 23.6 PG (27.0-31.0); MEAN CORPUSCULAR VOLUME 73.8 FL (78-98); MEAN PLATELET VOLUME 9.7 FL (7.4-10.4); MONOCYTES # (AUTO) 0.2 X10'3 (0-0.9); NEUTROPHILS # (AUTO) 4.1 X10'3 (1.8-7.7); NEUTROPHILS % (AUTO) 81.1 % (42-75); PLATELET COUNT 212 X10'3 (140-440); RED BLOOD COUNT 4.03 X10'6 (4.70-6.10); RED CELL DISTRIBUTION WIDTH 23.5 % (11.5-14.5)
[2017-11-23 06:25] LABS: ALBUMIN 2.5 G/DL (3.4-5.0); ANION GAP 6 (8-16); BLOOD UREA NITROGEN 15 MG/DL (7-18); BUN/CREATININE RATIO 13.6 (5.4-32.0); CALCIUM 8.5 MG/DL (8.5-10.1); CHLORIDE 105 MMOL/L (99-107); GLUCOSE 180 MG/DL (70-104); MAGNESIUM 1.8 MG/DL (1.5-2.4); POTASSIUM 4.4 MMOL/L (3.5-5.1); SODIUM 141 MMOL/L (135-145); eGFR 67 ML/MIN
[2017-11-23 07:06] VITALS: BP 145/65
[2017-11-23] MEDS: lactobacillus rhamnosus 10,000 MMU CELLS/CAPSULE PO SCH ×2 (07:54→16:46)
[2017-11-23] MEDS: levoTHYROXINE 25mcg tablet PO SCH (07:54)
[2017-11-23] MEDS: aripiprazole 5mg tablet PO SCH (07:55)
[2017-11-23] MEDS: cefTRIAXone 1g/NS 100ml IVPB 100 ML IV SCH (07:55)
[2017-11-23] MEDS: busPIRone 5mg tablet PO SCH ×2 (07:56→21:20)
[2017-11-23] MEDS: Terazosin 1mg capsule PO SCH (07:57)
[2017-11-23] MEDS: traZODone 150mg tablet PO SCH (07:57)
[2017-11-23] MEDS: ferrous gluconate 324mg tablet PO SCH ×2 (07:57→20:00)
[2017-11-23] MEDS: pregabalin 75mg capsule PO SCH ×3 (07:57→21:21)
[2017-11-23] MEDS: amLODIPine 5mg tablet PO SCH (07:58)
[2017-11-23] MEDS: FLUoxetine 20mg capsule PO SCH (07:59)
[2017-11-23] MEDS: clopidogrel 75mg tablet PO SCH (07:59)
[2017-11-23] MEDS: K and/or MAG REPLACEMENT MC SCH (08:00)
[2017-11-23] MEDS: lisinopril 10 MG tablet PO SCH (08:00)
[2017-11-23] MEDS: HYDROcodone/acetaminophen 5mg/325mg tablet PO PRN ×4 (08:01→21:20)
[2017-11-23] MEDS ORDERED: furosemide 20 MG/2 ML vial IV ONE (10:45)
[2017-11-23 11:00] VITALS: BP 118/67
[2017-11-23] MEDS: insulin Lispro (HumaLOG) vial - multi-dose SQ SCH ×2 (13:10→19:30)
[2017-11-23 20:00] VITALS: BP 145/71
[2017-11-23] MEDS: temazepam 15mg capsule PO PRN (21:21)
[2017-11-23] MEDS: enoxaparin 80mg/0.8ml syringe SUBCUT SCH (21:22)
[2017-11-23] MEDS: insulin glargine (Lantus) pen - multi-dose SQ SCH (21:28)
[2017-11-23 23:00] VITALS: BP 130/70
[2017-11-24] MEDS: ipratropium/albuterol 3ml nebule IH SCH ×4 (03:10→20:36)
[2017-11-24] MEDS: HYDROcodone/acetaminophen 5mg/325mg tablet PO PRN ×3 (05:03→17:32)
[2017-11-24 06:00] LABS: BASOPHILS % (AUTO) 0 % (0-1); EOSINOPHILS # (AUTO) 0.1 X10'3 (0-0.9); EOSINOPHILS % (AUTO) 1.1 % (0-6); HEMATOCRIT 25.5 % (42.0-52.0); HEMOGLOBIN 8.1 g/dl (14.0-17.9); LYMPHOCYTES # (AUTO) 0.7 X10'3 (1.1-4.8); LYMPHOCYTES % (AUTO) 14.3 % (21-51); MEAN CORPUSCULAR HEMOGLOBIN 22.9 PG (27.0-31.0); MEAN CORPUSCULAR HGB CONC 31.7 % (33.0-36.5); MEAN CORPUSCULAR VOLUME 72.4 FL (78-98); MEAN PLATELET VOLUME 9.7 FL (7.4-10.4); MONOCYTES # (AUTO) 0.4 X10'3 (0-0.9); NEUTROPHILS # (AUTO) 3.7 X10'3 (1.8-7.7); NEUTROPHILS % (AUTO) 76.6 % (42-75); PLATELET COUNT 199 X10'3 (140-440); RED BLOOD COUNT 3.52 X10'6 (4.70-6.10); RED CELL DISTRIBUTION WIDTH 23.3 % (11.5-14.5); WHITE BLOOD COUNT 4.8 X10'3 (4.5-11.0)
[2017-11-24 06:16] LABS: ALBUMIN 2.1 G/DL (3.4-5.0); ANION GAP 6 (8-16); BLOOD UREA NITROGEN 22 MG/DL (7-18); BUN/CREATININE RATIO 27.5 (5.4-32.0); CALCIUM 8.2 MG/DL (8.5-10.1); CHLORIDE 106 MMOL/L (99-107); GLUCOSE 142 MG/DL (70-104); MAGNESIUM 1.7 MG/DL (1.5-2.4); POTASSIUM 3.5 MMOL/L (3.5-5.1); SODIUM 143 MMOL/L (135-145); TOTAL CARBON DIOXIDE 30.9 MMOL/L (24-32); eGFR > 90 ML/MIN
[2017-11-24 07:00] VITALS: BP 134/82
[2017-11-24] MEDS: K and/or MAG REPLACEMENT MC SCH (08:00)
[2017-11-24] MEDS: cefTRIAXone 1g/NS 100ml IVPB 100 ML IV SCH (08:09)
[2017-11-24] MEDS: FLUoxetine 20mg capsule PO SCH (08:09)
[2017-11-24] MEDS: Terazosin 1mg capsule PO SCH (08:09)
[2017-11-24] MEDS: traZODone 150mg tablet PO SCH (08:09)
[2017-11-24] MEDS: pregabalin 75mg capsule PO SCH ×3 (08:09→21:41)
[2017-11-24] MEDS: lactobacillus rhamnosus 10,000 MMU CELLS/CAPSULE PO SCH ×2 (08:09→17:32)
[2017-11-24] MEDS: clopidogrel 75mg tablet PO SCH (08:09)
[2017-11-24] MEDS: busPIRone 5mg tablet PO SCH ×2 (08:10→19:38)
[2017-11-24] MEDS: amLODIPine 5mg tablet PO SCH (08:10)
[2017-11-24] MEDS: lisinopril 10 MG tablet PO SCH (08:10)
[2017-11-24] MEDS: aripiprazole 5mg tablet PO SCH (08:10)
[2017-11-24] MEDS: ferrous gluconate 324mg tablet PO SCH ×2 (08:10→19:38)
[2017-11-24] MEDS: levoTHYROXINE 25mcg tablet PO SCH (08:21)
[2017-11-24] MEDS: enoxaparin 80mg/0.8ml syringe SUBCUT SCH ×2 (08:22→19:39)
[2017-11-24] MEDS: insulin Lispro (HumaLOG) vial - multi-dose SQ SCH ×3 (08:29→19:37)
[2017-11-24] MEDS: dextrose ORAL solution 15 GM/59 ML bottle PO PRN (11:18)
[2017-11-24 11:46] VITALS: BP 140/77
[2017-11-24] MEDS: albuterol 2.5 MG/3 ML nebule NEB PRN (13:02)
[2017-11-24] MEDS ORDERED: metoprolol tartrate 1mg/ml inj IV PRN (14:20)
[2017-11-24] MEDS ORDERED: nitroGLYCERIN 0.4mg SUBLingual tab SL PRN (14:20)
[2017-11-24] MEDS ORDERED: aminophylline 250mg/10ml inj. IV PRN (14:20)
[2017-11-24] MEDS ORDERED: regadenoson 0.4mg/5ml syringe IV PRN (14:20)
[2017-11-24] MEDS: furosemide 40mg/4ml inj IV SCH (15:20)
[2017-11-24 19:30] VITALS: BP 130/72
[2017-11-24] MEDS: insulin glargine (Lantus) pen - multi-dose SQ SCH (21:51)
[2017-11-24 23:30] VITALS: BP 126/66
[2017-11-25] VITALS (10 sets, daily range): BP systolic 110–149; BP diastolic 52–75
[2017-11-25] MEDS: HYDROcodone/acetaminophen 5mg/325mg tablet PO PRN ×4 (02:12→19:48)
[2017-11-25] MEDS: ipratropium/albuterol 3ml nebule IH SCH ×4 (02:30→20:44)
[2017-11-25 06:04] LABS: BASOPHILS % (AUTO) 0 % (0-1); EOSINOPHILS # (AUTO) 0.1 X10'3 (0-0.9); EOSINOPHILS % (AUTO) 3.4 % (0-6); HEMOGLOBIN 8.8 g/dl (14.0-17.9); LYMPHOCYTES # (AUTO) 0.8 X10'3 (1.1-4.8); LYMPHOCYTES % (AUTO) 20.9 % (21-51); MEAN CORPUSCULAR HGB CONC 31.4 % (33.0-36.5); MEAN CORPUSCULAR VOLUME 73.2 FL (78-98); MEAN PLATELET VOLUME 9.9 FL (7.4-10.4); MONOCYTES # (AUTO) 0.4 X10'3 (0-0.9); MONOCYTES % (AUTO) 9.4 % (2-12); NEUTROPHILS # (AUTO) 2.7 X10'3 (1.8-7.7); NEUTROPHILS % (AUTO) 66.3 % (42-75); PLATELET COUNT 200 X10'3 (140-440); RED BLOOD COUNT 3.83 X10'6 (4.70-6.10); RED CELL DISTRIBUTION WIDTH 23.6 % (11.5-14.5)
[2017-11-25 06:54] LABS: ALBUMIN 2.3 G/DL (3.4-5.0); ANION GAP 7 (8-16); BLOOD UREA NITROGEN 17 MG/DL (7-18); BUN/CREATININE RATIO 18.5 (5.4-32.0); CALCIUM 8.5 MG/DL (8.5-10.1); CHLORIDE 105 MMOL/L (99-107); CREATININE 0.92 MG/DL (0.60-1.10); GLUCOSE 105 MG/DL (70-104); MAGNESIUM 1.6 MG/DL (1.5-2.4); POTASSIUM 3.4 MMOL/L (3.5-5.1); SODIUM 145 MMOL/L (135-145); TOTAL CARBON DIOXIDE 33.3 MMOL/L (24-32); eGFR 82 ML/MIN
[2017-11-25] MEDS: levoTHYROXINE 25mcg tablet PO SCH (07:35)
[2017-11-25] MEDS: pregabalin 75mg capsule PO SCH ×3 (07:36→21:56)
[2017-11-25] MEDS: Terazosin 1mg capsule PO SCH (07:36)
[2017-11-25] MEDS: ferrous gluconate 324mg tablet PO SCH ×2 (07:36→19:41)
[2017-11-25] MEDS: FLUoxetine 20mg capsule PO SCH (07:36)
[2017-11-25] MEDS: amLODIPine 5mg tablet PO SCH (07:36)
[2017-11-25] MEDS: busPIRone 5mg tablet PO SCH ×2 (07:36→19:41)
[2017-11-25] MEDS: clopidogrel 75mg tablet PO SCH (07:36)
[2017-11-25] MEDS: traZODone 150mg tablet PO SCH (07:36)
[2017-11-25] MEDS: lactobacillus rhamnosus 10,000 MMU CELLS/CAPSULE PO SCH ×2 (07:36→17:11)
[2017-11-25] MEDS: lisinopril 10 MG tablet PO SCH (07:36)
[2017-11-25] MEDS: aripiprazole 5mg tablet PO SCH (07:36)
[2017-11-25] MEDS: enoxaparin 80mg/0.8ml syringe SUBCUT SCH ×2 (07:37→19:42)
[2017-11-25] MEDS: furosemide 40mg/4ml inj IV SCH (07:37)
[2017-11-25] MEDS: CefTRIAXone 1 gm/50ml D5W ADV 50 ML IV SCH (07:38)
[2017-11-25] MEDS: K and/or MAG REPLACEMENT MC SCH (08:00)
[2017-11-25] MEDS ORDERED: regadenoson 0.4mg/5ml syringe IV ONE (08:27)
[2017-11-25] MEDS ORDERED: aminophylline inj. 0 ML IV ONE (08:27)
[2017-11-25] MEDS ORDERED: potassium Cl 40MEQ/NS 500ml 500 ML IV PRN ×2 (12:10)
[2017-11-25] MEDS ORDERED: potassium Cl 20 mEq SR tablet PO PRN (12:10)
[2017-11-25] MEDS: insulin Lispro (HumaLOG) vial - multi-dose SQ SCH ×2 (12:16→19:39)
[2017-11-25] MEDS: potassium Cl 20 mEq SR tablet PO PRN ×2 (12:38→17:11)
[2017-11-25] MEDS: insulin glargine (Lantus) pen - multi-dose SQ SCH (21:00)
[2017-11-25] MEDS: dextrose ORAL solution 15 GM/59 ML bottle PO PRN (21:55)
[2017-11-25] MEDS ORDERED: ceFAZolin inj. 3,000 MG in normal saline 100ml IV soln 100 ML IV ONE (22:00)
[2017-11-26] VITALS: BP 135/70
[2017-11-26] MEDS: ipratropium/albuterol 3ml nebule IH SCH ×4 (02:15→21:00)
[2017-11-26] MEDS: albuterol 2.5 MG/3 ML nebule NEB PRN (05:24)
[2017-11-26 05:58] LABS: HEMATOCRIT 28.8 % (42.0-52.0); MEAN CORPUSCULAR HEMOGLOBIN 22.9 PG (27.0-31.0); MEAN CORPUSCULAR HGB CONC 31.4 % (33.0-36.5); MEAN PLATELET VOLUME 8.8 FL (7.4-10.4); PLATELET COUNT 205 X10'3 (140-440); RED BLOOD COUNT 3.94 X10'6 (4.70-6.10); RED CELL DISTRIBUTION WIDTH 23.1 % (11.5-14.5); WHITE BLOOD COUNT 4.8 X10'3 (4.5-11.0)
[2017-11-26 06:23] LABS: ALBUMIN 2.4 G/DL (3.4-5.0); ANION GAP 5 (8-16); BLOOD UREA NITROGEN 19 MG/DL (7-18); BUN/CREATININE RATIO 18.1 (5.4-32.0); CALCIUM 8.5 MG/DL (8.5-10.1); CHLORIDE 104 MMOL/L (99-107); CREATININE 1.05 MG/DL (0.60-1.10); GLUCOSE 112 MG/DL (70-104); MAGNESIUM 1.6 MG/DL (1.5-2.4); POTASSIUM 3.9 MMOL/L (3.5-5.1); SODIUM 144 MMOL/L (135-145); TOTAL CARBON DIOXIDE 35.2 MMOL/L (24-32); eGFR 71 ML/MIN
[2017-11-26 07:11] VITALS: BP 137/77
[2017-11-26 07:39] LABS: ANISOCYTOSIS 2+; MICROCYTOSIS 2+; PLATELET ESTIMATE NORMAL; TOTAL CELLS COUNTED 100
[2017-11-26 07:40] LABS: ELLIPTOCYTES FEW; POIKILOCYTOSIS FEW; POLYCHROMASIA 1+; TARGET CELLS FEW
[2017-11-26] MEDS: levoTHYROXINE 25mcg tablet PO SCH (07:54)
[2017-11-26] MEDS: furosemide 40mg/4ml inj IV SCH (07:55)
[2017-11-26] MEDS: lactobacillus rhamnosus 10,000 MMU CELLS/CAPSULE PO SCH ×2 (07:55→16:50)
[2017-11-26] MEDS: CefTRIAXone 1 gm/50ml D5W ADV 50 ML IV SCH (07:55)
[2017-11-26] MEDS: busPIRone 5mg tablet PO SCH ×2 (07:56→19:50)
[2017-11-26] MEDS: traZODone 150mg tablet PO SCH (07:56)
[2017-11-26] MEDS: aripiprazole 5mg tablet PO SCH (07:56)
[2017-11-26] MEDS: Terazosin 1mg capsule PO SCH (07:57)
[2017-11-26] MEDS: ferrous gluconate 324mg tablet PO SCH ×2 (07:57→19:50)
[2017-11-26] MEDS: pregabalin 75mg capsule PO SCH ×3 (07:58→21:34)
[2017-11-26] MEDS: amLODIPine 5mg tablet PO SCH (07:58)
[2017-11-26] MEDS: lisinopril 10 MG tablet PO SCH (07:59)
[2017-11-26] MEDS: enoxaparin 80mg/0.8ml syringe SUBCUT SCH ×2 (07:59→19:50)
[2017-11-26] MEDS: clopidogrel 75mg tablet PO SCH (07:59)
[2017-11-26] MEDS: FLUoxetine 20mg capsule PO SCH (07:59)
[2017-11-26] MEDS: HYDROcodone/acetaminophen 5mg/325mg tablet PO PRN ×2 (08:00→19:58)
[2017-11-26] MEDS: K and/or MAG REPLACEMENT MC SCH (08:00)
[2017-11-26] MEDS: insulin Lispro (HumaLOG) vial - multi-dose SQ SCH ×2 (08:16→19:40)
[2017-11-26 11:27] VITALS: BP 120/64
[2017-11-26 11:46] VITALS: BP 120/64
[2017-11-26 19:00] VITALS: BP 132/60
[2017-11-26] MEDS: insulin glargine (Lantus) pen - multi-dose SQ SCH (21:00)
[2017-11-26] MEDS: temazepam 15mg capsule PO PRN (22:23)
[2017-11-27] VITALS: BP 147/65
[2017-11-27 02:46] VITALS: BP 140/70
[2017-11-27] MEDS: ipratropium/albuterol 3ml nebule IH SCH ×4 (02:52→21:06)
[2017-11-27 06:32] LABS: MAGNESIUM 1.8 MG/DL (1.5-2.4); POTASSIUM 3.4 MMOL/L (3.5-5.1)
[2017-11-27 07:10] VITALS: BP 152/80
[2017-11-27] MEDS: busPIRone 5mg tablet PO SCH ×2 (07:28→19:28)
[2017-11-27] MEDS: aripiprazole 5mg tablet PO SCH (07:28)
[2017-11-27] MEDS: FLUoxetine 20mg capsule PO SCH (07:28)
[2017-11-27] MEDS: pregabalin 75mg capsule PO SCH ×3 (07:29→22:05)
[2017-11-27] MEDS: ferrous gluconate 324mg tablet PO SCH ×2 (07:29→19:28)
[2017-11-27] MEDS: Terazosin 1mg capsule PO SCH (07:29)
[2017-11-27] MEDS: amLODIPine 5mg tablet PO SCH (07:29)
[2017-11-27] MEDS: lactobacillus rhamnosus 10,000 MMU CELLS/CAPSULE PO SCH ×2 (07:29→17:38)
[2017-11-27] MEDS: traZODone 150mg tablet PO SCH (07:29)
[2017-11-27] MEDS: enoxaparin 80mg/0.8ml syringe SUBCUT SCH ×2 (07:29→19:30)
[2017-11-27] MEDS: furosemide 40mg/4ml inj IV SCH (07:29)
[2017-11-27] MEDS: lisinopril 10 MG tablet PO SCH (07:29)
[2017-11-27] MEDS: levoTHYROXINE 25mcg tablet PO SCH (07:29)
[2017-11-27] MEDS: cefTRIAXone 1g/NS 100ml IVPB 100 ML IV SCH (07:30)
[2017-11-27] MEDS: potassium Cl 20 mEq SR tablet PO PRN ×3 (07:35→17:38)
[2017-11-27] MEDS: HYDROcodone/acetaminophen 5mg/325mg tablet PO PRN ×3 (07:36→19:36)
[2017-11-27] MEDS: K and/or MAG REPLACEMENT MC SCH (07:50)
[2017-11-27 20:00] VITALS: BP 122/68
[2017-11-27] MEDS: insulin glargine (Lantus) pen - multi-dose SQ SCH (21:00)
[2017-11-28] VITALS: BP 134/68
[2017-11-28] MEDS: ipratropium/albuterol 3ml nebule IH SCH ×4 (02:50→21:01)
[2017-11-28 05:47] LABS: MAGNESIUM 1.8 MG/DL (1.5-2.4); POTASSIUM 4.2 MMOL/L (3.5-5.1)
[2017-11-28 07:05] VITALS: BP 131/68
[2017-11-28] MEDS: lisinopril 10 MG tablet PO SCH (07:08)
[2017-11-28] MEDS: FLUoxetine 20mg capsule PO SCH (07:08)
[2017-11-28] MEDS: Terazosin 1mg capsule PO SCH (07:09)
[2017-11-28] MEDS: amLODIPine 5mg tablet PO SCH (07:09)
[2017-11-28] MEDS: busPIRone 5mg tablet PO SCH ×2 (07:09→20:10)
[2017-11-28] MEDS: furosemide 40mg/4ml inj IV SCH (07:09)
[2017-11-28] MEDS: traZODone 150mg tablet PO SCH (07:09)
[2017-11-28] MEDS: levoTHYROXINE 25mcg tablet PO SCH (07:09)
[2017-11-28] MEDS: lactobacillus rhamnosus 10,000 MMU CELLS/CAPSULE PO SCH ×2 (07:09→17:47)
[2017-11-28] MEDS: ferrous gluconate 324mg tablet PO SCH ×2 (07:09→20:10)
[2017-11-28] MEDS: pregabalin 75mg capsule PO SCH ×3 (07:09→20:42)
[2017-11-28] MEDS: aripiprazole 5mg tablet PO SCH (07:09)
[2017-11-28] MEDS: enoxaparin 80mg/0.8ml syringe SUBCUT SCH ×2 (07:10→20:12)
[2017-11-28] MEDS: cefTRIAXone 1g/NS 100ml IVPB 100 ML IV SCH (07:10)
[2017-11-28] MEDS: K and/or MAG REPLACEMENT MC SCH (07:23)
[2017-11-28] MEDS ORDERED: CefTRIAXone 1 gm/50ml D5W ADV 50 ML IV SCH (10:13)
[2017-11-28 11:05] VITALS: BP 141/66
[2017-11-28 20:00] VITALS: BP 137/69
[2017-11-28] MEDS: HYDROcodone/acetaminophen 5mg/325mg tablet PO PRN (20:11)
[2017-11-28] MEDS: insulin glargine (Lantus) pen - multi-dose SQ SCH (20:17)
[2017-11-29] VITALS (38 sets, daily range): BP systolic 99–152; BP diastolic 45–82
[2017-11-29] MEDS: ipratropium/albuterol 3ml nebule IH SCH ×4 (02:58→21:25)
[2017-11-29 04:26] LABS: BASOPHILS % (AUTO) 0 % (0-1); EOSINOPHILS # (AUTO) 0.1 X10'3 (0-0.9); EOSINOPHILS % (AUTO) 2.1 % (0-6); LYMPHOCYTES % (AUTO) 15.5 % (21-51); MEAN CORPUSCULAR HEMOGLOBIN 23.1 PG (27.0-31.0); MEAN CORPUSCULAR HGB CONC 31.3 % (33.0-36.5); MEAN CORPUSCULAR VOLUME 73.8 FL (78-98); MEAN PLATELET VOLUME 10.3 FL (7.4-10.4); MONOCYTES # (AUTO) 0.6 X10'3 (0-0.9); MONOCYTES % (AUTO) 9.1 % (2-12); NEUTROPHILS # (AUTO) 4.9 X10'3 (1.8-7.7); NEUTROPHILS % (AUTO) 73.3 % (42-75); PRE OP HEMATOCRIT 29.8 % (42.0-52.0); PRE OP PLATELET COUNT 202 X10'3 (140-440); RED BLOOD COUNT 4.04 X10'6 (4.70-6.10)
[2017-11-29 04:39] LABS: PRE OP INR 1.1 INR; PRE OP PROTIME 10.9 SECONDS (9.0-12.0)
[2017-11-29 04:42] LABS: ALBUMIN 2.5 G/DL (3.4-5.0); ALBUMIN/GLOBULIN RATIO 0.5 (1.1-1.5); ALKALINE PHOSPHATASE 344 IU/L (46-116); BLOOD UREA NITROGEN 23 MG/DL (7-18); BUN/CREATININE RATIO 21.7 (5.4-32.0); CALCIUM 8.4 MG/DL (8.5-10.1); CHLORIDE 103 MMOL/L (99-107); CREATININE 1.06 MG/DL (0.60-1.10); PRE OP ANION GAP 9 (8-16); PRE OP BILIRUB, TOTAL 0.4 MG/DL (0.0-1.0); PRE OP GLUCOSE 132 MG/DL (70-104); PRE OP HEMOGLOBIN 9.4 g/dL (14.0-17.9); PRE OP POTASSIUM 3.9 MMOL/L (3.4-5.1); PRE OP SODIUM 142 MMOL/L (135-145); TOTAL CARBON DIOXIDE 30.2 MMOL/L (24-32); TOTAL PROTEIN 7.9 G/DL (6.4-8.2); eGFR 70 ML/MIN
[2017-11-29 04:51] LABS: PRE OP AST 191 U/L (10-37)
[2017-11-29 04:52] LABS: PRE OP ALT 104 U/L (30-65)
[2017-11-29] MEDS ORDERED: ceFAZolin inj. 3,000 MG in normal saline 100ml IV soln 100 ML IV ONE ×4 (05:30)
[2017-11-29] MEDS ORDERED: LIDOcaine 1% (10mg/ml) 2ml vial ONE (06:46)
[2017-11-29] MEDS: levoTHYROXINE 25mcg tablet PO SCH (07:00)
[2017-11-29] MEDS ORDERED: MIDAZolam 1mg/ml 10ml vial ONE (07:26)
[2017-11-29] MEDS ORDERED: propofol inj 20 ML IV ONE (07:27)
[2017-11-29] MEDS ORDERED: fentaNYL/PF 50MCG/1 ML 2ML syringe ONE ×2 (07:27→10:04)
[2017-11-29] MEDS ORDERED: rocuronium 10mg/ml inj IV ONE ×2 (07:27→09:13)
[2017-11-29] MEDS: lactobacillus rhamnosus 10,000 MMU CELLS/CAPSULE PO SCH ×2 (07:30→17:01)
[2017-11-29] MEDS ORDERED: sevoflurane 250ml liquid IH ONE (07:44)
[2017-11-29] MEDS: traZODone 150mg tablet PO SCH (08:00)
[2017-11-29] MEDS: pregabalin 75mg capsule PO SCH ×3 (08:00→21:00)
[2017-11-29] MEDS: lisinopril 10 MG tablet PO SCH (08:00)
[2017-11-29] MEDS: K and/or MAG REPLACEMENT MC SCH (08:00)
[2017-11-29] MEDS: busPIRone 5mg tablet PO SCH ×2 (08:00→19:38)
[2017-11-29] MEDS: aripiprazole 5mg tablet PO SCH (08:00)
[2017-11-29] MEDS: FLUoxetine 20mg capsule PO SCH (08:00)
[2017-11-29] MEDS: amLODIPine 5mg tablet PO SCH (08:00)
[2017-11-29] MEDS: ferrous gluconate 324mg tablet PO SCH ×2 (08:00→19:38)
[2017-11-29] MEDS: furosemide 40mg/4ml inj IV SCH (08:00)
[2017-11-29] MEDS: Terazosin 1mg capsule PO SCH (08:00)
[2017-11-29] MEDS ORDERED: albumin (Human) 5% 250ml 250 ML IV ONE (09:27)
[2017-11-29] MEDS ORDERED: ePHEDrine 50MG/ML INJ. ONE (09:27)
[2017-11-29] MEDS ORDERED: ringers solution, lacted 1,000 ML IV SCH (09:37)
[2017-11-29] MEDS ORDERED: meperidine/PF 50mg/ml syringe IV PRN (09:40)
[2017-11-29] MEDS ORDERED: ondansetron/PF 4mg/2ml inj IV PRN ×3 (09:40→11:00)
[2017-11-29] MEDS ORDERED: morphine 2 MG/ML inj. syringe IV PRN ×4 (09:40→11:00)
[2017-11-29] MEDS ORDERED: morphine 10mg/ml inj. ONE (10:03)
[2017-11-29] MEDS ORDERED: HYDROcodone/acetaminophen 10/325mg tab PO PRN ×2 (11:00)
[2017-11-29] MEDS ORDERED: CADD PCA waste documentation MC PRN ×2 (11:00)
[2017-11-29] MEDS ORDERED: naloxone 0.4 mg/ml inj IV PRN ×2 (11:00)
[2017-11-29] MEDS ORDERED: metoclopramide 5 mg/ml inj IV PRN ×2 (11:00)
[2017-11-29] MEDS ORDERED: morphine 5 MG/ML injection IV PRN (11:00)
[2017-11-29] MEDS ORDERED: midazolam 100mg in NS 100ml 100 ML IV PRN (11:10)
[2017-11-29 11:30] LABS: ABG BASE EXCESS -1.1 mmol/L (-2.0-3.0); ABG HCO3 25.3 mmol/L (22.0-26.0); ABG OXYGEN SATURATION 95.6 % (95-98); ABG PCO2 (T) 50.9 mmHg (35.0-48.0); ABG PH (T) 7.315 (7.350-7.450); ABG PO2 (T) 86.2 mmHg (83-108); FCOHb 0.6 % (0.5-1.5); FLOW 40 L/min; FMetHb 0.2 % (0.3-1.12); FO2Hb 94.8 % (94-100); PEEP 8 cm H2O; RESPIRATORY RATE 12 b/min; RESPIRATORY RATE (OBSERVED) 12 b/min; TIDAL VOLUME 600 mL; TOTAL HEMOGLOBIN 9.9 G/dl (14.0-18.0)
[2017-11-29] MEDS: morphine 2 MG/ML inj. syringe IV PRN ×2 (12:10→13:04)
[2017-11-29] MEDS ORDERED: MIDAZolam 5mg/ml 2ml vial IV ONE (12:40)
[2017-11-29] MEDS: FENTANYL-0.9 % NACL/PF 100 ML IV PRN (14:32)
[2017-11-29] MEDS ORDERED: ceFAZolin inj. 1,000 MG in dextrose 5%-water 50ml 50 ML IV SCH (16:00)
[2017-11-29] MEDS: cefazolin 1gm/NS 100mL 100 ML IV SCH (17:01)
[2017-11-29] MEDS: normal saline 1000ml 1,000 ML IV SCH (19:37)
[2017-11-29] MEDS: insulin glargine (Lantus) pen - multi-dose SQ SCH (21:00)
[2017-11-30] VITALS (26 sets, daily range): BP systolic 86–173; BP diastolic 44–79
[2017-11-30] MEDS: cefazolin 1gm/NS 100mL 100 ML IV SCH (00:14)
[2017-11-30] MEDS: insulin Lispro (HumaLOG) vial - multi-dose SQ SCH (02:20)
[2017-11-30 02:29] LABS: BASOPHILS % (AUTO) 0 % (0-1); EOSINOPHILS # (AUTO) 0.2 X10'3 (0-0.9); EOSINOPHILS % (AUTO) 1.5 % (0-6); HEMATOCRIT 29.1 % (42.0-52.0); HEMOGLOBIN 9.3 g/dl (14.0-17.9); LYMPHOCYTES # (AUTO) 0.6 X10'3 (1.1-4.8); LYMPHOCYTES % (AUTO) 4.4 % (21-51); MEAN CORPUSCULAR HEMOGLOBIN 24.7 PG (27.0-31.0); MEAN CORPUSCULAR VOLUME 77.2 FL (78-98); MEAN PLATELET VOLUME 10.7 FL (7.4-10.4); MONOCYTES # (AUTO) 0.8 X10'3 (0-0.9); MONOCYTES % (AUTO) 5.7 % (2-12); NEUTROPHILS # (AUTO) 12.8 X10'3 (1.8-7.7); NEUTROPHILS % (AUTO) 88.4 % (42-75); PLATELET COUNT 191 X10'3 (140-440); RED BLOOD COUNT 3.77 X10'6 (4.70-6.10); RED CELL DISTRIBUTION WIDTH 23.4 % (11.5-14.5); WHITE BLOOD COUNT 14.4 X10'3 (4.5-11.0)
[2017-11-30 02:48] LABS: ALANINE AMINOTRANSFERASE 220 U/L (12-78); ALBUMIN/GLOBULIN RATIO 0.5 (1.1-1.5); ALKALINE PHOSPHATASE 228 IU/L (46-116); ANION GAP 8 (8-16); ASPARTATE AMINO TRANSFERASE 835 U/L (10-37); BILIRUBIN,TOTAL 0.7 MG/DL (0.1-1.0); BLOOD UREA NITROGEN 21 MG/DL (7-18); BUN/CREATININE RATIO 19.3 (5.4-32.0); CALCIUM 7.1 MG/DL (8.5-10.1); CHLORIDE 108 MMOL/L (99-107); CREATININE 1.09 MG/DL (0.60-1.10); GLUCOSE 153 MG/DL (70-104); MAGNESIUM 1.5 MG/DL (1.5-2.4); PHOSPHORUS 3.4 MG/DL (2.3-4.5); POTASSIUM 4.6 MMOL/L (3.5-5.1); SODIUM 143 MMOL/L (135-145); TOTAL CARBON DIOXIDE 26.6 MMOL/L (24-32); TOTAL PROTEIN 6.1 G/DL (6.4-8.2); eGFR 68 ML/MIN
[2017-11-30] MEDS: normal saline 1000ml 1,000 ML IV SCH ×4 (02:49→16:53)
[2017-11-30] MEDS: FENTANYL-0.9 % NACL/PF 100 ML IV PRN (02:50)
[2017-11-30 02:57] LABS: LARGE PLATELETS FEW; PLATELET ESTIMATE NORMAL
[2017-11-30 02:59] LABS: ANISOCYTOSIS 3+; MICROCYTOSIS 2+; POLYCHROMASIA FEW; TEAR DROP CELLS 1+
[2017-11-30] MEDS: ipratropium/albuterol 3ml nebule IH SCH ×3 (03:05→14:42)
[2017-11-30] MEDS ORDERED: albumin (human) 25% 100 ML IV solution IV ONE (03:10)
[2017-11-30 03:36] LABS: ABG BASE EXCESS -1.5 mmol/L (-2.0-3.0); ABG HCO3 22.9 mmol/L (22.0-26.0); ABG OXYGEN SATURATION 97.3 % (95-98); ABG PCO2 (T) 36.1 mmHg (35.0-48.0); ABG PH (T) 7.417 (7.350-7.450); ABG PO2 (T) 87.9 mmHg (83-108); FCOHb 0.4 % (0.5-1.5); FMetHb 0.3 % (0.3-1.12); FO2Hb 96.6 % (94-100); MINUTE VOLUME 10 L/min; PATIENT TEMPERATURE 36.2; PEEP 8 cm H2O; RESPIRATORY RATE 16 b/min; RESPIRATORY RATE (OBSERVED) 16 b/min; TIDAL VOLUME 600 mL; TOTAL HEMOGLOBIN 9.8 G/dl (14.0-18.0)
[2017-11-30] MEDS: levoTHYROXINE 25mcg tablet PO SCH (07:00)
[2017-11-30] MEDS: lactobacillus rhamnosus 10,000 MMU CELLS/CAPSULE PO SCH (07:30)
[2017-11-30] MEDS: Terazosin 1mg capsule PO SCH (08:00)
[2017-11-30] MEDS: ferrous gluconate 324mg tablet PO SCH ×2 (08:00→20:54)
[2017-11-30] MEDS: traZODone 150mg tablet PO SCH (08:00)
[2017-11-30] MEDS: FLUoxetine 20mg capsule PO SCH (08:00)
[2017-11-30] MEDS: pregabalin 75mg capsule PO SCH ×3 (08:00→20:51)
[2017-11-30] MEDS: K and/or MAG REPLACEMENT MC SCH (08:00)
[2017-11-30] MEDS: aripiprazole 5mg tablet PO SCH (08:00)
[2017-11-30] MEDS: lisinopril 10 MG tablet PO SCH (08:00)
[2017-11-30] MEDS: busPIRone 5mg tablet PO SCH ×2 (08:00→13:24)
[2017-11-30] MEDS: amLODIPine 5mg tablet PO SCH ×2 (08:00→13:25)
[2017-11-30] MEDS ORDERED: racepinephrine 11.25mg/0.5ml nebule NEB PRN (10:40)
[2017-11-30] MEDS ORDERED: naloxone 0.4 mg/ml inj IV PRN (10:40)
[2017-11-30] MEDS ORDERED: CADD PCA waste documentation MC PRN (10:40)
[2017-11-30] MEDS ORDERED: ipratropium/albuterol 3ml nebule NEB PRN (10:40)
[2017-11-30] MEDS ORDERED: HYDROmorphone/NS 1 mg/ml CADD 50 ML IV SCH ×2 (11:00→12:55)
[2017-11-30] MEDS: clopidogrel 75mg tablet PO SCH ×2 (11:16→13:24)
[2017-11-30] MEDS: ipratropium/albuterol 3ml nebule NEB SCH ×2 (15:00→21:00)
[2017-11-30] MEDS: HYDROmorphone/NS 1 mg/ml CADD 50 ML IV SCH ×3 (15:00→17:37)
[2017-11-30 20:41] LABS: ABG HCO3 23.5 mmol/L (22.0-26.0); ABG OXYGEN SATURATION 91.5 % (95-98); ABG PCO2 (T) 43.3 mmHg (35.0-48.0); ABG PH (T) 7.353 (7.350-7.450); ABG PO2 (T) 62.3 mmHg (83-108); FCOHb 0.4 % (0.5-1.5); FLOW 4 L/min; FMetHb 0.2 % (0.3-1.12); TOTAL HEMOGLOBIN 10.2 G/dl (14.0-18.0)
[2017-11-30] MEDS: insulin glargine (Lantus) pen - multi-dose SQ SCH (20:55)
[2017-12-01] VITALS (24 sets, daily range): BP systolic 99–185; BP diastolic 50–89
[2017-12-01] MEDS: normal saline 1000ml 1,000 ML IV SCH ×2 (00:20→23:10)
[2017-12-01 01:41] LABS: ABG BASE EXCESS -3.7 mmol/L (-2.0-3.0); ABG HCO3 21.5 mmol/L (22.0-26.0); ABG PCO2 (T) 39.6 mmHg (35.0-48.0); ABG PH (T) 7.353 (7.350-7.450); ABG PO2 (T) 64.5 mmHg (83-108); FCOHb 0.3 % (0.5-1.5); FMetHb 0.2 % (0.3-1.12); FO2Hb 91.5 % (94-100); PATIENT TEMPERATURE 37.1; RESPIRATORY RATE 18 b/min; RESPIRATORY RATE (OBSERVED) 24 b/min; TIDAL VOLUME 536 mL; TOTAL HEMOGLOBIN 9.7 G/dl (14.0-18.0)
[2017-12-01] MEDS: ipratropium/albuterol 3ml nebule IH SCH ×4 (02:45→20:05)
[2017-12-01 05:36] LABS: BASOPHILS % (AUTO) 0.1 % (0-1); EOSINOPHILS # (AUTO) 0.1 X10'3 (0-0.9); EOSINOPHILS % (AUTO) 1.1 % (0-6); HEMATOCRIT 26.8 % (42.0-52.0); HEMOGLOBIN 8.6 g/dl (14.0-17.9); LYMPHOCYTES # (AUTO) 0.5 X10'3 (1.1-4.8); LYMPHOCYTES % (AUTO) 4.5 % (21-51); MEAN CORPUSCULAR HGB CONC 32.2 % (33.0-36.5); MEAN CORPUSCULAR VOLUME 77.8 FL (78-98); MEAN PLATELET VOLUME 10.3 FL (7.4-10.4); MONOCYTES # (AUTO) 0.9 X10'3 (0-0.9); MONOCYTES % (AUTO) 8.2 % (2-12); NEUTROPHILS # (AUTO) 9.7 X10'3 (1.8-7.7); NEUTROPHILS % (AUTO) 86.1 % (42-75); PLATELET COUNT 166 X10'3 (140-440); RED BLOOD COUNT 3.45 X10'6 (4.70-6.10); RED CELL DISTRIBUTION WIDTH 23.1 % (11.5-14.5); WHITE BLOOD COUNT 11.3 X10'3 (4.5-11.0)
[2017-12-01 05:58] LABS: ALANINE AMINOTRANSFERASE 433 U/L (12-78); ALBUMIN 2.3 G/DL (3.4-5.0); ALBUMIN/GLOBULIN RATIO 0.6 (1.1-1.5); ALKALINE PHOSPHATASE 278 IU/L (46-116); ANION GAP 9 (8-16); BILIRUBIN,TOTAL 0.8 MG/DL (0.1-1.0); BLOOD UREA NITROGEN 18 MG/DL (7-18); BUN/CREATININE RATIO 21.4 (5.4-32.0); CALCIUM 6.9 MG/DL (8.5-10.1); CHLORIDE 112 MMOL/L (99-107); CREATININE 0.84 MG/DL (0.60-1.10); GLUCOSE 120 MG/DL (70-104); MAGNESIUM 1.8 MG/DL (1.5-2.4); PHOSPHORUS 2.7 MG/DL (2.3-4.5); POTASSIUM 3.9 MMOL/L (3.5-5.1); SODIUM 147 MMOL/L (135-145); TOTAL CARBON DIOXIDE 25.9 MMOL/L (24-32); TOTAL PROTEIN 6.1 G/DL (6.4-8.2); eGFR > 90 ML/MIN
[2017-12-01 06:00] LABS: ASPARTATE AMINO TRANSFERASE 1494 U/L (10-37)
[2017-12-01] MEDS: K and/or MAG REPLACEMENT MC SCH (08:00)
[2017-12-01] MEDS: FLUoxetine 20mg capsule PO SCH (08:22)
[2017-12-01] MEDS: ferrous gluconate 324mg tablet PO SCH ×2 (08:22→20:44)
[2017-12-01] MEDS: Terazosin 1mg capsule PO SCH (08:22)
[2017-12-01] MEDS: aripiprazole 5mg tablet PO SCH (08:23)
[2017-12-01] MEDS: levoTHYROXINE 25mcg tablet PO SCH (08:23)
[2017-12-01] MEDS: busPIRone 5mg tablet PO SCH ×2 (08:23→20:44)
[2017-12-01] MEDS: lactobacillus rhamnosus 10,000 MMU CELLS/CAPSULE PO SCH ×3 (08:23→16:38)
[2017-12-01] MEDS: pregabalin 75mg capsule PO SCH ×3 (08:23→20:44)
[2017-12-01] MEDS: traZODone 150mg tablet PO SCH (08:24)
[2017-12-01] MEDS: lisinopril 10 MG tablet PO SCH (08:24)
[2017-12-01 12:31] LABS: ABG BASE EXCESS -3.8 mmol/L (-2.0-3.0); ABG HCO3 21.2 mmol/L (22.0-26.0); ABG PCO2 (T) 38.6 mmHg (35.0-48.0); ABG PH (T) 7.359 (7.350-7.450); ABG PO2 (T) 83.6 mmHg (83-108); ALLEN'S TEST Positive; FCOHb 0.1 % (0.5-1.5); FLOW 5 L/min; FMetHb 0.1 % (0.3-1.12); FO2Hb 95.8 % (94-100); PATIENT TEMPERATURE 37.4; TOTAL HEMOGLOBIN 9.7 G/dl (14.0-18.0)
[2017-12-01] MEDS: HYDROcodone/acetaminophen 10/325mg tab PO PRN ×2 (16:38→23:11)
[2017-12-01] MEDS: insulin glargine (Lantus) pen - multi-dose SQ SCH (21:43)
[2017-12-02] VITALS (24 sets, daily range): BP systolic 98–145; BP diastolic 52–89
[2017-12-02 02:57] LABS: BASOPHILS % (AUTO) 0 % (0-1); EOSINOPHILS # (AUTO) 0.2 X10'3 (0-0.9); EOSINOPHILS % (AUTO) 1.6 % (0-6); LYMPHOCYTES # (AUTO) 0.4 X10'3 (1.1-4.8); LYMPHOCYTES % (AUTO) 4.1 % (21-51); MEAN CORPUSCULAR HEMOGLOBIN 24.7 PG (27.0-31.0); MEAN CORPUSCULAR VOLUME 77.3 FL (78-98); MEAN PLATELET VOLUME 10.1 FL (7.4-10.4); MONOCYTES # (AUTO) 0.9 X10'3 (0-0.9); MONOCYTES % (AUTO) 8.5 % (2-12); NEUTROPHILS % (AUTO) 85.8 % (42-75); PLATELET COUNT 172 X10'3 (140-440); RED BLOOD COUNT 3.24 X10'6 (4.70-6.10); RED CELL DISTRIBUTION WIDTH 23.6 % (11.5-14.5); WHITE BLOOD COUNT 10.5 X10'3 (4.5-11.0)
[2017-12-02] MEDS: ipratropium/albuterol 3ml nebule IH SCH ×4 (02:59→20:39)
[2017-12-02 03:09] LABS: ALANINE AMINOTRANSFERASE 312 U/L (12-78); ALBUMIN/GLOBULIN RATIO 0.5 (1.1-1.5); ALKALINE PHOSPHATASE 295 IU/L (46-116); ANION GAP 9 (8-16); ASPARTATE AMINO TRANSFERASE 666 U/L (10-37); BLOOD UREA NITROGEN 20 MG/DL (7-18); BUN/CREATININE RATIO 23.3 (5.4-32.0); CALCIUM 7.1 MG/DL (8.5-10.1); CHLORIDE 111 MMOL/L (99-107); CREATININE 0.86 MG/DL (0.60-1.10); GLUCOSE 143 MG/DL (70-104); MAGNESIUM 1.7 MG/DL (1.5-2.4); PHOSPHORUS 2.4 MG/DL (2.3-4.5); POTASSIUM 3.8 MMOL/L (3.5-5.1); SODIUM 145 MMOL/L (135-145); TOTAL CARBON DIOXIDE 25.5 MMOL/L (24-32); eGFR 89 ML/MIN
[2017-12-02] MEDS: K and/or MAG REPLACEMENT MC SCH (08:00)
[2017-12-02] MEDS: busPIRone 5mg tablet PO SCH ×2 (08:23→20:21)
[2017-12-02] MEDS: clopidogrel 75mg tablet PO SCH (08:24)
[2017-12-02] MEDS: traZODone 150mg tablet PO SCH (08:24)
[2017-12-02] MEDS: aripiprazole 5mg tablet PO SCH (08:24)
[2017-12-02] MEDS: pregabalin 75mg capsule PO SCH ×3 (08:25→20:21)
[2017-12-02] MEDS: Terazosin 1mg capsule PO SCH (08:25)
[2017-12-02] MEDS: lactobacillus rhamnosus 10,000 MMU CELLS/CAPSULE PO SCH ×2 (08:25→18:52)
[2017-12-02] MEDS: lisinopril 10 MG tablet PO SCH (08:25)
[2017-12-02] MEDS: FLUoxetine 20mg capsule PO SCH (08:26)
[2017-12-02] MEDS: amLODIPine 5mg tablet PO SCH (08:26)
[2017-12-02] MEDS: ferrous gluconate 324mg tablet PO SCH ×2 (08:26→20:22)
[2017-12-02] MEDS: levoTHYROXINE 25mcg tablet PO SCH (08:28)
[2017-12-02] MEDS: ipratropium/albuterol 3ml nebule NEB SCH (09:00)
[2017-12-02] MEDS: HYDROcodone/acetaminophen 10/325mg tab PO PRN ×2 (11:16→20:21)
[2017-12-02] MEDS: enoxaparin 80mg/0.8ml syringe SUBCUT SCH ×2 (11:16→20:23)
[2017-12-02] MEDS: insulin Lispro (HumaLOG) vial - multi-dose SQ SCH ×2 (15:12→18:55)
[2017-12-02] MEDS: insulin glargine (Lantus) pen - multi-dose SQ SCH (20:58)
[2017-12-03] VITALS (20 sets, daily range): BP systolic 90–144; BP diastolic 50–83
[2017-12-03] MEDS: ipratropium/albuterol 3ml nebule IH SCH ×4 (02:45→20:22)
[2017-12-03] MEDS: HYDROcodone/acetaminophen 10/325mg tab PO PRN ×4 (03:02→19:16)
[2017-12-03] MEDS: normal saline 1000ml 1,000 ML IV SCH ×2 (03:12→23:12)
[2017-12-03 03:20] LABS: BASOPHILS % (AUTO) 0.3 % (0-1); EOSINOPHILS # (AUTO) 0.1 X10'3 (0-0.9); EOSINOPHILS % (AUTO) 0.7 % (0-6); HEMATOCRIT 25.8 % (42.0-52.0); HEMOGLOBIN 8.2 g/dl (14.0-17.9); LYMPHOCYTES # (AUTO) 0.6 X10'3 (1.1-4.8); LYMPHOCYTES % (AUTO) 5.8 % (21-51); MEAN CORPUSCULAR HEMOGLOBIN 24.6 PG (27.0-31.0); MEAN CORPUSCULAR HGB CONC 31.8 % (33.0-36.5); MEAN CORPUSCULAR VOLUME 77.2 FL (78-98); MEAN PLATELET VOLUME 10.5 FL (7.4-10.4); MONOCYTES # (AUTO) 0.7 X10'3 (0-0.9); MONOCYTES % (AUTO) 7.3 % (2-12); NEUTROPHILS # (AUTO) 8.1 X10'3 (1.8-7.7); NEUTROPHILS % (AUTO) 85.9 % (42-75); PLATELET COUNT 188 X10'3 (140-440); RED BLOOD COUNT 3.34 X10'6 (4.70-6.10); WHITE BLOOD COUNT 9.4 X10'3 (4.5-11.0)
[2017-12-03 03:33] LABS: ALANINE AMINOTRANSFERASE 221 U/L (12-78); ALBUMIN 1.8 G/DL (3.4-5.0); ALBUMIN/GLOBULIN RATIO 0.4 (1.1-1.5); ALKALINE PHOSPHATASE 335 IU/L (46-116); ANION GAP 9 (8-16); ASPARTATE AMINO TRANSFERASE 330 U/L (10-37); BILIRUBIN,TOTAL 0.9 MG/DL (0.1-1.0); BLOOD UREA NITROGEN 24 MG/DL (7-18); BUN/CREATININE RATIO 26.1 (5.4-32.0); CALCIUM 7.2 MG/DL (8.5-10.1); CHLORIDE 110 MMOL/L (99-107); CREATININE 0.92 MG/DL (0.60-1.10); GLUCOSE 133 MG/DL (70-104); MAGNESIUM 1.7 MG/DL (1.5-2.4); PHOSPHORUS 2.3 MG/DL (2.3-4.5); POTASSIUM 3.9 MMOL/L (3.5-5.1); SODIUM 144 MMOL/L (135-145); TOTAL CARBON DIOXIDE 24.6 MMOL/L (24-32); TOTAL PROTEIN 6.1 G/DL (6.4-8.2); eGFR 82 ML/MIN
[2017-12-03 04:34] LABS: LARGE PLATELETS FEW; PLATELET ESTIMATE NORMAL
[2017-12-03] MEDS: enoxaparin 80mg/0.8ml syringe SUBCUT SCH ×2 (07:48→19:12)
[2017-12-03] MEDS: levoTHYROXINE 25mcg tablet PO SCH (07:59)
[2017-12-03] MEDS: aripiprazole 5mg tablet PO SCH (08:00)
[2017-12-03] MEDS: busPIRone 5mg tablet PO SCH ×2 (08:00→19:11)
[2017-12-03] MEDS: lisinopril 10 MG tablet PO SCH (08:00)
[2017-12-03] MEDS: Terazosin 1mg capsule PO SCH (08:00)
[2017-12-03] MEDS: amLODIPine 5mg tablet PO SCH (08:00)
[2017-12-03] MEDS: traZODone 150mg tablet PO SCH (08:00)
[2017-12-03] MEDS: K and/or MAG REPLACEMENT MC SCH (08:00)
[2017-12-03] MEDS: lactobacillus rhamnosus 10,000 MMU CELLS/CAPSULE PO SCH ×2 (08:00→13:45)
[2017-12-03] MEDS: FLUoxetine 20mg capsule PO SCH (08:00)
[2017-12-03] MEDS: pregabalin 75mg capsule PO SCH ×3 (08:01→22:21)
[2017-12-03] MEDS: clopidogrel 75mg tablet PO SCH (08:01)
[2017-12-03] MEDS: ferrous gluconate 324mg tablet PO SCH ×2 (08:01→19:11)
[2017-12-03] MEDS: insulin Lispro (HumaLOG) vial - multi-dose SQ SCH ×3 (09:25→19:11)
[2017-12-03] MEDS: insulin glargine (Lantus) pen - multi-dose SQ SCH (22:20)
[2017-12-04] VITALS (20 sets, daily range): BP systolic 97–148; BP diastolic 52–85
[2017-12-04] MEDS: ipratropium/albuterol 3ml nebule IH SCH ×4 (02:22→19:37)
[2017-12-04] MEDS: HYDROcodone/acetaminophen 10/325mg tab PO PRN ×4 (02:24→20:33)
[2017-12-04 03:27] LABS: ALANINE AMINOTRANSFERASE 167 U/L (12-78); ALBUMIN 1.8 G/DL (3.4-5.0); ALBUMIN/GLOBULIN RATIO 0.4 (1.1-1.5); ALKALINE PHOSPHATASE 364 IU/L (46-116); ANION GAP 9 (8-16); ASPARTATE AMINO TRANSFERASE 196 U/L (10-37); BILIRUBIN,TOTAL 0.9 MG/DL (0.1-1.0); BLOOD UREA NITROGEN 27 MG/DL (7-18); BUN/CREATININE RATIO 23.7 (5.4-32.0); CALCIUM 7.4 MG/DL (8.5-10.1); CHLORIDE 109 MMOL/L (99-107); CREATININE 1.14 MG/DL (0.60-1.10); GLUCOSE 119 MG/DL (70-104); MAGNESIUM 1.7 MG/DL (1.5-2.4); PHOSPHORUS 2.7 MG/DL (2.3-4.5); POTASSIUM 3.7 MMOL/L (3.5-5.1); SODIUM 143 MMOL/L (135-145); TOTAL CARBON DIOXIDE 25.2 MMOL/L (24-32); TOTAL PROTEIN 6.6 G/DL (6.4-8.2); eGFR 64 ML/MIN
[2017-12-04 03:29] LABS: BASOPHILS % (AUTO) 0.1 % (0-1); EOSINOPHILS # (AUTO) 0.3 X10'3 (0-0.9); EOSINOPHILS % (AUTO) 2.5 % (0-6); HEMATOCRIT 26.9 % (42.0-52.0); HEMOGLOBIN 8.5 g/dl (14.0-17.9); LYMPHOCYTES # (AUTO) 0.7 X10'3 (1.1-4.8); LYMPHOCYTES % (AUTO) 7.2 % (21-51); MEAN CORPUSCULAR HEMOGLOBIN 24.2 PG (27.0-31.0); MEAN CORPUSCULAR HGB CONC 31.7 % (33.0-36.5); MEAN CORPUSCULAR VOLUME 76.5 FL (78-98); MEAN PLATELET VOLUME 9.8 FL (7.4-10.4); MONOCYTES # (AUTO) 0.6 X10'3 (0-0.9); MONOCYTES % (AUTO) 6.5 % (2-12); NEUTROPHILS # (AUTO) 8.2 X10'3 (1.8-7.7); NEUTROPHILS % (AUTO) 83.7 % (42-75); PLATELET COUNT 230 X10'3 (140-440); RED BLOOD COUNT 3.51 X10'6 (4.70-6.10); RED CELL DISTRIBUTION WIDTH 23.3 % (11.5-14.5); WHITE BLOOD COUNT 9.8 X10'3 (4.5-11.0)
[2017-12-04 03:54] LABS: PLATELET ESTIMATE NORMAL
[2017-12-04 04:03] LABS: HYPOCHROMASIA 1+; MICROCYTOSIS 1+; TARGET CELLS 1+
[2017-12-04 04:04] LABS: LARGE PLATELETS FEW
[2017-12-04] MEDS: amLODIPine 5mg tablet PO SCH (08:42)
[2017-12-04] MEDS: levoTHYROXINE 25mcg tablet PO SCH (08:42)
[2017-12-04] MEDS: Terazosin 1mg capsule PO SCH (08:42)
[2017-12-04] MEDS: aripiprazole 5mg tablet PO SCH (08:42)
[2017-12-04] MEDS: busPIRone 5mg tablet PO SCH ×2 (08:43→20:34)
[2017-12-04] MEDS: FLUoxetine 20mg capsule PO SCH (08:43)
[2017-12-04] MEDS: pregabalin 75mg capsule PO SCH ×3 (08:44→20:31)
[2017-12-04] MEDS: traZODone 150mg tablet PO SCH (08:44)
[2017-12-04] MEDS: lisinopril 10 MG tablet PO SCH (08:44)
[2017-12-04] MEDS: ferrous gluconate 324mg tablet PO SCH ×2 (08:44→20:35)
[2017-12-04] MEDS: enoxaparin 80mg/0.8ml syringe SUBCUT SCH ×2 (08:46→20:37)
[2017-12-04] MEDS: clopidogrel 75mg tablet PO SCH (08:50)
[2017-12-04] MEDS: insulin Lispro (HumaLOG) vial - multi-dose SQ SCH ×3 (08:52→19:30)
[2017-12-04] MEDS: lactobacillus rhamnosus 10,000 MMU CELLS/CAPSULE PO SCH ×2 (08:53→14:27)
[2017-12-04] MEDS: K and/or MAG REPLACEMENT MC SCH (18:57)
[2017-12-04] MEDS: normal saline 1000ml 1,000 ML IV SCH (19:12)
[2017-12-04] MEDS: insulin glargine (Lantus) pen - multi-dose SQ SCH (20:45)
[2017-12-05] VITALS (22 sets, daily range): BP systolic 95–157; BP diastolic 50–79
[2017-12-05] MEDS: ipratropium/albuterol 3ml nebule IH SCH ×4 (02:43→21:22)
[2017-12-05] MEDS: HYDROcodone/acetaminophen 10/325mg tab PO PRN ×3 (03:23→18:25)
[2017-12-05 05:07] LABS: BASOPHILS % (AUTO) 0 % (0-1); EOSINOPHILS # (AUTO) 0.1 X10'3 (0-0.9); EOSINOPHILS % (AUTO) 1.7 % (0-6); HEMATOCRIT 24.1 % (42.0-52.0); HEMOGLOBIN 7.9 g/dl (14.0-17.9); LYMPHOCYTES # (AUTO) 0.6 X10'3 (1.1-4.8); LYMPHOCYTES % (AUTO) 7.8 % (21-51); MEAN CORPUSCULAR HEMOGLOBIN 24.5 PG (27.0-31.0); MEAN CORPUSCULAR HGB CONC 32.7 % (33.0-36.5); MEAN PLATELET VOLUME 9.8 FL (7.4-10.4); MONOCYTES # (AUTO) 0.5 X10'3 (0-0.9); MONOCYTES % (AUTO) 6.2 % (2-12); NEUTROPHILS # (AUTO) 6.3 X10'3 (1.8-7.7); NEUTROPHILS % (AUTO) 84.3 % (42-75); PLATELET COUNT 253 X10'3 (140-440); RED BLOOD COUNT 3.21 X10'6 (4.70-6.10); RED CELL DISTRIBUTION WIDTH 23.6 % (11.5-14.5); WHITE BLOOD COUNT 7.4 X10'3 (4.5-11.0)
[2017-12-05 05:25] LABS: ALANINE AMINOTRANSFERASE 118 U/L (12-78); ALBUMIN 1.6 G/DL (3.4-5.0); ALBUMIN/GLOBULIN RATIO 0.3 (1.1-1.5); ALKALINE PHOSPHATASE 424 IU/L (46-116); ANION GAP 9 (8-16); ASPARTATE AMINO TRANSFERASE 135 U/L (10-37); BILIRUBIN,TOTAL 0.8 MG/DL (0.1-1.0); BLOOD UREA NITROGEN 20 MG/DL (7-18); BUN/CREATININE RATIO 20.2 (5.4-32.0); CALCIUM 7.5 MG/DL (8.5-10.1); CHLORIDE 108 MMOL/L (99-107); CREATININE 0.99 MG/DL (0.60-1.10); GLUCOSE 123 MG/DL (70-104); MAGNESIUM 1.7 MG/DL (1.5-2.4); PHOSPHORUS 2.8 MG/DL (2.3-4.5); POTASSIUM 3.6 MMOL/L (3.5-5.1); SODIUM 143 MMOL/L (135-145); TOTAL CARBON DIOXIDE 26.1 MMOL/L (24-32); TOTAL PROTEIN 6.4 G/DL (6.4-8.2); eGFR 76 ML/MIN
[2017-12-05] MEDS: K and/or MAG REPLACEMENT MC SCH (08:00)
[2017-12-05] MEDS: enoxaparin 80mg/0.8ml syringe SUBCUT SCH ×2 (08:00→20:07)
[2017-12-05] MEDS: aripiprazole 5mg tablet PO SCH (09:19)
[2017-12-05] MEDS: clopidogrel 75mg tablet PO SCH (09:19)
[2017-12-05] MEDS: levoTHYROXINE 25mcg tablet PO SCH (09:20)
[2017-12-05] MEDS: lisinopril 10 MG tablet PO SCH (09:20)
[2017-12-05] MEDS: traZODone 150mg tablet PO SCH (09:20)
[2017-12-05] MEDS: amLODIPine 5mg tablet PO SCH (09:20)
[2017-12-05] MEDS: lactobacillus rhamnosus 10,000 MMU CELLS/CAPSULE PO SCH ×2 (09:20→18:29)
[2017-12-05] MEDS: FLUoxetine 20mg capsule PO SCH (09:21)
[2017-12-05] MEDS: pregabalin 75mg capsule PO SCH ×3 (09:21→20:07)
[2017-12-05] MEDS: Terazosin 1mg capsule PO SCH (09:21)
[2017-12-05] MEDS: ferrous gluconate 324mg tablet PO SCH ×2 (09:21→20:07)
[2017-12-05] MEDS: busPIRone 5mg tablet PO SCH ×2 (09:22→20:06)
[2017-12-05] MEDS: insulin Lispro (HumaLOG) vial - multi-dose SQ SCH ×2 (13:52→18:34)
[2017-12-05] MEDS: normal saline 1000ml 1,000 ML IV SCH (18:35)
[2017-12-05] MEDS: mag hydrox/Alum hydrox/simeth 30ml oral suspension PO PRN (20:55)
[2017-12-05] MEDS: insulin glargine (Lantus) pen - multi-dose SQ SCH (20:58)
[2017-12-06] VITALS (24 sets, daily range): BP systolic 110–153; BP diastolic 57–75
[2017-12-06] MEDS: ipratropium/albuterol 3ml nebule IH SCH ×4 (03:16→20:11)
[2017-12-06] MEDS: HYDROcodone/acetaminophen 10/325mg tab PO PRN ×4 (04:53→17:33)
[2017-12-06 05:23] LABS: BASOPHILS % (AUTO) 0.1 % (0-1); EOSINOPHILS # (AUTO) 0.1 X10'3 (0-0.9); EOSINOPHILS % (AUTO) 2.1 % (0-6); HEMOGLOBIN 8.2 g/dl (14.0-17.9); LYMPHOCYTES # (AUTO) 0.6 X10'3 (1.1-4.8); LYMPHOCYTES % (AUTO) 9.6 % (21-51); MEAN CORPUSCULAR HEMOGLOBIN 24.2 PG (27.0-31.0); MEAN CORPUSCULAR HGB CONC 32.9 % (33.0-36.5); MEAN CORPUSCULAR VOLUME 73.6 FL (78-98); MEAN PLATELET VOLUME 9.4 FL (7.4-10.4); MONOCYTES # (AUTO) 0.4 X10'3 (0-0.9); MONOCYTES % (AUTO) 6.1 % (2-12); NEUTROPHILS # (AUTO) 5.4 X10'3 (1.8-7.7); NEUTROPHILS % (AUTO) 82.1 % (42-75); PLATELET COUNT 282 X10'3 (140-440); RED CELL DISTRIBUTION WIDTH 24.3 % (11.5-14.5); WHITE BLOOD COUNT 6.6 X10'3 (4.5-11.0)
[2017-12-06 05:26] LABS: ALANINE AMINOTRANSFERASE 99 U/L (12-78); ALBUMIN 1.7 G/DL (3.4-5.0); ALBUMIN/GLOBULIN RATIO 0.3 (1.1-1.5); ALKALINE PHOSPHATASE 452 IU/L (46-116); ANION GAP 11 (8-16); ASPARTATE AMINO TRANSFERASE 115 U/L (10-37); BILIRUBIN,TOTAL 0.8 MG/DL (0.1-1.0); BLOOD UREA NITROGEN 18 MG/DL (7-18); BUN/CREATININE RATIO 19.4 (5.4-32.0); CALCIUM 7.8 MG/DL (8.5-10.1); CHLORIDE 107 MMOL/L (99-107); CREATININE 0.93 MG/DL (0.60-1.10); GLUCOSE 125 MG/DL (70-104); MAGNESIUM 1.9 MG/DL (1.5-2.4); PHOSPHORUS 3.1 MG/DL (2.3-4.5); POTASSIUM 3.7 MMOL/L (3.5-5.1); SODIUM 143 MMOL/L (135-145); TOTAL CARBON DIOXIDE 25.5 MMOL/L (24-32); TOTAL PROTEIN 6.7 G/DL (6.4-8.2); eGFR 81 ML/MIN
[2017-12-06] MEDS: K and/or MAG REPLACEMENT MC SCH (08:00)
[2017-12-06] MEDS: lisinopril 10 MG tablet PO SCH (08:19)
[2017-12-06] MEDS: levoTHYROXINE 25mcg tablet PO SCH (08:19)
[2017-12-06] MEDS: Terazosin 1mg capsule PO SCH (08:19)
[2017-12-06] MEDS: aripiprazole 5mg tablet PO SCH (08:19)
[2017-12-06] MEDS: pregabalin 75mg capsule PO SCH ×3 (08:19→20:12)
[2017-12-06] MEDS: amLODIPine 5mg tablet PO SCH (08:19)
[2017-12-06] MEDS: lactobacillus rhamnosus 10,000 MMU CELLS/CAPSULE PO SCH ×2 (08:19→16:59)
[2017-12-06] MEDS: busPIRone 5mg tablet PO SCH ×2 (08:19→20:13)
[2017-12-06] MEDS: clopidogrel 75mg tablet PO SCH (08:19)
[2017-12-06] MEDS: enoxaparin 80mg/0.8ml syringe SUBCUT SCH ×2 (08:20→20:13)
[2017-12-06] MEDS: traZODone 150mg tablet PO SCH (08:20)
[2017-12-06] MEDS: FLUoxetine 20mg capsule PO SCH (08:20)
[2017-12-06] MEDS: ferrous gluconate 324mg tablet PO SCH ×2 (08:20→20:12)
[2017-12-06] MEDS: insulin Lispro (HumaLOG) vial - multi-dose SQ SCH ×3 (09:05→18:50)
[2017-12-06] MEDS: normal saline 1000ml 1,000 ML IV SCH ×2 (11:30→19:07)
[2017-12-06] MEDS: mag hydrox/Alum hydrox/simeth 30ml oral suspension PO PRN (18:45)
[2017-12-06] MEDS: insulin glargine (Lantus) pen - multi-dose SQ SCH (21:30)
[2017-12-07] VITALS (24 sets, daily range): BP systolic 106–156; BP diastolic 57–79
[2017-12-07] MEDS: temazepam 15mg capsule PO PRN ×2 (00:31→01:54)
[2017-12-07] MEDS: ipratropium/albuterol 3ml nebule IH SCH ×4 (02:10→20:41)
[2017-12-07 06:21] LABS: BASOPHILS % (AUTO) 0.4 % (0-1); EOSINOPHILS # (AUTO) 0.1 X10'3 (0-0.9); EOSINOPHILS % (AUTO) 2.4 % (0-6); HEMATOCRIT 23.7 % (42.0-52.0); HEMOGLOBIN 7.6 g/dl (14.0-17.9); LYMPHOCYTES # (AUTO) 0.7 X10'3 (1.1-4.8); LYMPHOCYTES % (AUTO) 14.1 % (21-51); MEAN CORPUSCULAR HEMOGLOBIN 23.8 PG (27.0-31.0); MEAN CORPUSCULAR HGB CONC 32.2 % (33.0-36.5); MEAN CORPUSCULAR VOLUME 73.9 FL (78-98); MEAN PLATELET VOLUME 9.5 FL (7.4-10.4); MONOCYTES # (AUTO) 0.3 X10'3 (0-0.9); MONOCYTES % (AUTO) 6.6 % (2-12); NEUTROPHILS % (AUTO) 76.5 % (42-75); PLATELET COUNT 278 X10'3 (140-440); RED BLOOD COUNT 3.21 X10'6 (4.70-6.10); RED CELL DISTRIBUTION WIDTH 24.3 % (11.5-14.5); WHITE BLOOD COUNT 5.2 X10'3 (4.5-11.0)
[2017-12-07 06:36] LABS: ALANINE AMINOTRANSFERASE 82 U/L (12-78); ALBUMIN 1.6 G/DL (3.4-5.0); ALBUMIN/GLOBULIN RATIO 0.3 (1.1-1.5); ALKALINE PHOSPHATASE 433 IU/L (46-116); ANION GAP 9 (8-16); ASPARTATE AMINO TRANSFERASE 102 U/L (10-37); BILIRUBIN,TOTAL 0.5 MG/DL (0.1-1.0); BLOOD UREA NITROGEN 19 MG/DL (7-18); BUN/CREATININE RATIO 20.7 (5.4-32.0); CALCIUM 7.7 MG/DL (8.5-10.1); CHLORIDE 106 MMOL/L (99-107); CREATININE 0.92 MG/DL (0.60-1.10); GLUCOSE 120 MG/DL (70-104); MAGNESIUM 1.8 MG/DL (1.5-2.4); PHOSPHORUS 2.7 MG/DL (2.3-4.5); POTASSIUM 3.9 MMOL/L (3.5-5.1); SODIUM 141 MMOL/L (135-145); TOTAL CARBON DIOXIDE 26.3 MMOL/L (24-32); TOTAL PROTEIN 6.6 G/DL (6.4-8.2); eGFR 82 ML/MIN
[2017-12-07] MEDS: pregabalin 75mg capsule PO SCH ×3 (07:54→19:35)
[2017-12-07] MEDS: amLODIPine 5mg tablet PO SCH (07:54)
[2017-12-07] MEDS: clopidogrel 75mg tablet PO SCH (07:54)
[2017-12-07] MEDS: lisinopril 10 MG tablet PO SCH (07:54)
[2017-12-07] MEDS: levoTHYROXINE 25mcg tablet PO SCH (07:54)
[2017-12-07] MEDS: lactobacillus rhamnosus 10,000 MMU CELLS/CAPSULE PO SCH ×2 (07:54→17:41)
[2017-12-07] MEDS: aripiprazole 5mg tablet PO SCH (07:54)
[2017-12-07] MEDS: busPIRone 5mg tablet PO SCH ×2 (07:54→19:35)
[2017-12-07] MEDS: Terazosin 1mg capsule PO SCH (07:54)
[2017-12-07] MEDS: FLUoxetine 20mg capsule PO SCH (07:55)
[2017-12-07] MEDS: K and/or MAG REPLACEMENT MC SCH (07:55)
[2017-12-07] MEDS: traZODone 150mg tablet PO SCH (07:55)
[2017-12-07] MEDS: enoxaparin 80mg/0.8ml syringe SUBCUT SCH ×2 (07:55→19:37)
[2017-12-07] MEDS: ferrous gluconate 324mg tablet PO SCH ×2 (07:55→19:35)
[2017-12-07] MEDS: HYDROcodone/acetaminophen 10/325mg tab PO PRN ×4 (08:34→23:36)
[2017-12-07] MEDS: insulin Lispro (HumaLOG) vial - multi-dose SQ SCH ×3 (08:48→18:59)
[2017-12-07] MEDS: insulin glargine (Lantus) pen - multi-dose SQ SCH (20:41)
[2017-12-08] VITALS: BP 134/70
== END 2017-12-08 00:15 | DRG 163 ==
LOC: ER 10:13 → ED HOLD 13:24 → EDBEDREQ 14:23 → MED 3N 15:24 → ICU 2S 11-29 10:38
PROVIDERS: ADMIT Internal Medicine
PROC: B32T1ZZ Computerized Tomography (CT Scan) of Left Pulmonary Artery using Low Osmolar Contrast (ICD-10-PCS; 2017-11-21)
PROC: B3201ZZ Computerized Tomography (CT Scan) of Thoracic Aorta using Low Osmolar Contrast (ICD-10-PCS; 2017-11-21)
PROC: B32S1ZZ Computerized Tomography (CT Scan) of Right Pulmonary Artery using Low Osmolar Contrast (ICD-10-PCS; 2017-11-21)
PROC: 4A02XM4 Measurement of Cardiac Total Activity, External Approach (ICD-10-PCS; 2017-11-25)
PROC: 3E073KZ Introduction of Other Diagnostic Substance into Coronary Artery, Percutaneous Approach (ICD-10-PCS; 2017-11-25)
PROC: 05HM33Z Insertion of Infusion Device into Right Internal Jugular Vein, Percutaneous Approach (ICD-10-PCS; 2017-11-29)
PROC: 5A1945Z Respiratory Ventilation, 24-96 Consecutive Hours (ICD-10-PCS; 2017-11-29)
PROC: 30233N1 Transfusion of Nonautologous Red Blood Cells into Peripheral Vein, Percutaneous Approach (ICD-10-PCS; 2017-11-29)
PROC: 0W9930Z Drainage of Right Pleural Cavity with Drainage Device, Percutaneous Approach (ICD-10-PCS; 2017-11-29)
PROC: 0BNK0ZZ Release Right Lung, Open Approach (ICD-10-PCS; principal; 2017-11-29 07:44)
PROC: 5A09357 Assistance with Respiratory Ventilation, Less than 24 Consecutive Hours, Continuous Positive Airway Pressure (ICD-10-PCS; 2017-11-30)
DX: J86.9 Pyothorax without fistula (principal); J96.21 Acute and chronic respiratory failure with hypoxia; E43 Unspecified severe protein-calorie malnutrition; I50.31 Acute diastolic (congestive) heart failure; J18.9 Pneumonia, unspecified organism; J90 Pleural effusion, not elsewhere classified; E11.42 Type 2 diabetes mellitus with diabetic polyneuropathy; E11.649 Type 2 diabetes mellitus with hypoglycemia without coma; I11.0 Hypertensive heart disease with heart failure; F31.30 Bipolar disorder, current episode depressed, mild or moderate severity, unspecified; J44.0 Chronic obstructive pulmonary disease with (acute) lower respiratory infection; K74.60 Unspecified cirrhosis of liver; D50.9 Iron deficiency anemia, unspecified; B18.2 Chronic viral hepatitis C; D63.8 Anemia in other chronic diseases classified elsewhere; E03.9 Hypothyroidism, unspecified; E78.5 Hyperlipidemia, unspecified; F41.0 Panic disorder [episodic paroxysmal anxiety]; I25.10 Atherosclerotic heart disease of native coronary artery without angina pectoris; N40.0 Benign prostatic hyperplasia without lower urinary tract symptoms; F14.10 Cocaine abuse, uncomplicated; F17.210 Nicotine dependence, cigarettes, uncomplicated; Z95.5 Presence of coronary angioplasty implant and graft; Z79.899 Other long term (current) drug therapy; Z79.82 Long term (current) use of aspirin; Z79.4 Long term (current) use of insulin; Z68.28 Body mass index [BMI] 28.0-28.9, adult
CPT/HCPCS: 36415; 36600; 70450; 71045; 71275; 73502; 78452; 80048; 80053; 82803; 82948; 83036; 83605; 83735; 83880; 84100; 84132; 84484; 85018; 85025; 85610; 85730; 86885; 86900; 86901; 86920; 87040; 87070; 87075; 87102; 88305; 93005; 93017; 94002; 94003; 94640; 94660; 94668; 94760; 97110; 97116; 97162; 97530; 99285; A4620; A6196; A6212; A6213; A6223; A6253; A6255; A6258; A6402; A6449; A7000; A7015; A7048; A9500; C1758; C9250; J0280; J0690; J0696; J1170; J1650; J1815; J1940; J2175; J2250; J2270; J2704; J2930; J3010; J3490; J7030; J7120; P9016; P9045; P9047; Q9967

== ENCOUNTER 2018-01-07 00:37 | Inpatient (IN) | payer MEDICARE, MEDICAID ==
[~2018-01-07] VITALS: Ht 167.6 cm; Wt 80.9 kg
[2018-01-07 01:10] LABS: BASOPHILS # (AUTO) 0.1 X10'3 (0-0.2); BASOPHILS % (AUTO) 0.7 % (0-1); EOSINOPHILS # (AUTO) 0.1 X10'3 (0-0.9); EOSINOPHILS % (AUTO) 0.6 % (0-6); HEMATOCRIT 27.1 % (42.0-52.0); HEMOGLOBIN 8.7 g/dl (14.0-17.9); LYMPHOCYTES # (AUTO) 0.7 X10'3 (1.1-4.8); LYMPHOCYTES % (AUTO) 5.6 % (21-51); MEAN CORPUSCULAR HEMOGLOBIN 23.7 PG (27.0-31.0); MEAN CORPUSCULAR HGB CONC 32.2 % (33.0-36.5); MEAN CORPUSCULAR VOLUME 73.6 FL (78-98); MEAN PLATELET VOLUME 9.5 FL (7.4-10.4); MONOCYTES # (AUTO) 0.6 X10'3 (0-0.9); MONOCYTES % (AUTO) 4.8 % (2-12); NEUTROPHILS # (AUTO) 10.7 X10'3 (1.8-7.7); NEUTROPHILS % (AUTO) 88.3 % (42-75); PLATELET COUNT 195 X10'3 (140-440); RED BLOOD COUNT 3.69 X10'6 (4.70-6.10); RED CELL DISTRIBUTION WIDTH 21.7 % (11.5-14.5); WHITE BLOOD COUNT 12.2 X10'3 (4.5-11.0)
[2018-01-07 01:20] LABS: PARTIAL THROMBOPLASTIN TIME 29 SECONDS (22-32); PROTHROMBIN TIME 10.7 SECONDS (9.0-12.0)
[2018-01-07 01:36] LABS: ALANINE AMINOTRANSFERASE 39 U/L (12-78); ALBUMIN 2.1 G/DL (3.4-5.0); ALBUMIN/GLOBULIN RATIO 0.4 (1.1-1.5); ALKALINE PHOSPHATASE 374 IU/L (46-116); ANION GAP 8 (8-16); ASPARTATE AMINO TRANSFERASE 69 U/L (10-37); BILIRUBIN,TOTAL 0.4 MG/DL (0.1-1.0); BLOOD UREA NITROGEN 26 MG/DL (7-18); CALCIUM 8.4 MG/DL (8.5-10.1); CHLORIDE 106 MMOL/L (99-107); CREATININE 1.24 MG/DL (0.60-1.10); GLUCOSE 138 MG/DL (70-104); POTASSIUM 3.9 MMOL/L (3.5-5.1); SODIUM 142 MMOL/L (135-145); TOTAL CARBON DIOXIDE 28.4 MMOL/L (24-32); TOTAL PROTEIN 7.7 G/DL (6.4-8.2); eGFR 58 ML/MIN
[2018-01-07] MEDS ORDERED: albuterol 2.5 MG/3 ML nebule CONTNEB PRN (02:15)
[2018-01-07] MEDS ORDERED: ipratropium 0.5 MG/2.5ML nebule IH ONE (02:15)
[2018-01-07 04:14] LABS: ANISOCYTOSIS 3+; PLATELET ESTIMATE NORMAL
[2018-01-07 04:15] LABS: HYPOCHROMASIA 3+; POLYCHROMASIA 2+
[2018-01-07] MEDS ORDERED: ondansetron/PF 4mg/2ml inj IV PRN (04:50)
[2018-01-07] MEDS ORDERED: acetaminophen 325mg tablet PO PRN (04:50)
[2018-01-07] MEDS ORDERED: ipratropium/albuterol 3ml nebule NEB PRN (04:50)
[2018-01-07] MEDS ORDERED: mag hydrox/Alum hydrox/simeth 30ml oral suspension PO PRN (04:50)
[2018-01-07] MEDS ORDERED: magnesium 2GM in 50ml NS 50 ML IV PRN (04:50)
[2018-01-07] MEDS: normal saline 1000ml 1,000 ML IV SCH ×2 (04:50→14:50)
[2018-01-07] MEDS ORDERED: magnesium Cl slow-release 64mg tablet PO PRN (04:50)
[2018-01-07] MEDS ORDERED: potassium Cl 40MEQ/NS 500ml 500 ML IV PRN ×2 (04:50)
[2018-01-07] MEDS ORDERED: magnesium hydroxide 30ml (MOM) UD suspension PO PRN (04:50)
[2018-01-07] MEDS ORDERED: magnesium 4gm in 100ml NS 100 ML IV PRN (04:50)
[2018-01-07] MEDS ORDERED: potassium Cl 20 mEq SR tablet PO PRN ×2 (04:50)
[2018-01-07] MEDS ORDERED: albuterol 2.5 MG/3 ML nebule NEB PRN (04:50)
[2018-01-07 06:28] LABS: CLARITY,URINE CLEAR (Clear); COLOR,URINE YELLOW (Yellow); GLUCOSE, URINE NEGATIVE (Neg); KETONES,URINE NEGATIVE (Neg); LEUKOCYTE ESTERASE ,URINE NEGATIVE (Neg); NITRITES, URINE NEGATIVE (Neg); OCCULT BLOOD,URINE LARGE (Neg); PROTEIN,URINE >=300 mg/dl (Neg); UROBILINOGEN,URINE 0.2 E.U/dL (0.2-1.0)
[2018-01-07 06:55] LABS: UA COLLECTION TYPE CLN CATCH MIDSTREAM
[2018-01-07 06:56] LABS: BACTERIA,URINE FEW /HPF (Neg); MUCUS STRANDS NONE SEEN /LPF (Neg); SQUAMOUS EPITHELIAL CELL,UR FEW /LPF (FEW)
[2018-01-07] MEDS: ipratropium 0.5 MG/2.5ML nebule IH SCH ×2 (07:15→16:29)
[2018-01-07] MEDS ORDERED: levoFLOXACIN-Levaquin 500mg/D5 100 ML IV SCH (08:00)
[2018-01-07] MEDS ORDERED: aripiprazole 5mg tablet PO SCH (08:00)
[2018-01-07] MEDS ORDERED: amLODIPine 5mg tablet PO SCH (08:00)
[2018-01-07] MEDS ORDERED: lisinopril 10 MG tablet PO SCH (08:00)
[2018-01-07] MEDS ORDERED: K and/or MAG REPLACEMENT MC SCH (08:00)
[2018-01-07] MEDS ORDERED: levoTHYROXINE 25mcg tablet PO SCH (08:00)
[2018-01-07] MEDS ORDERED: busPIRone 5mg tablet PO SCH (08:00)
[2018-01-07] MEDS ORDERED: FLUoxetine 20mg capsule PO SCH (08:00)
[2018-01-07] MEDS ORDERED: FERROUS GLUCONATE 240 MG PO SCH (08:00)
[2018-01-07] MEDS ORDERED: Terazosin 1mg capsule PO SCH (08:00)
[2018-01-07] MEDS ORDERED: clopidogrel 75mg tablet PO SCH (08:00)
[2018-01-07] MEDS: pregabalin 75mg capsule PO SCH ×3 (09:50→20:11)
[2018-01-07] MEDS: heparin, porcine 5000 units/ml vial SQ SCH ×2 (09:56→20:12)
[2018-01-07 10:21] LABS: ABG BASE EXCESS 1.5 mmol/L (-2.0-3.0); ABG OXYGEN SATURATION 59.7 % (95-98); ABG PH (T) 7.325 (7.350-7.450); ABG PO2 (T) 33.4 mmHg (83-108); ALLEN'S TEST Positive; FCOHb 0.5 % (0.5-1.5); FMetHb 0.2 % (0.3-1.12); FO2Hb 59.3 % (94-100); TOTAL HEMOGLOBIN 8.5 G/dl (14.0-18.0)
[2018-01-07 10:25] LABS: ABG BASE EXCESS 0.5 mmol/L (-2.0-3.0); ABG HCO3 25.9 mmol/L (22.0-26.0); ABG OXYGEN SATURATION 97.1 % (95-98); ABG PCO2 (T) 45.7 mmHg (35.0-48.0); ABG PH (T) 7.372 (7.350-7.450); ABG PO2 (T) 91.7 mmHg (83-108); ALLEN'S TEST Positive; FCOHb 0.9 % (0.5-1.5); FLOW 2 L/min; FMetHb 0.2 % (0.3-1.12); TOTAL HEMOGLOBIN 8.9 G/dl (14.0-18.0)
[2018-01-07] MEDS: ferrous gluconate 324mg tablet PO SCH ×3 (11:34→17:30)
[2018-01-07] MEDS ORDERED: AZIT500T PO (13:58)
[2018-01-07] MEDS ORDERED: morphine 4 MG/ML inj SYRINge IV ONE (15:10)
[2018-01-07] MEDS ORDERED: HYDROmorphone 2mg/ml vial IV ONE (19:15)
[2018-01-07 20:15] VITALS: BP 124/58
[2018-01-07] MEDS ORDERED: traZODone 150mg tablet PO SCH (21:00)
[2018-01-07] MEDS ORDERED: insulin glargine (Lantus) pen - multi-dose SQ SCH (21:00)
== END 2018-01-07 20:30 | DRG 189 ==
LOC: ER 00:38 → UNDOADMIN 04:50 → ED HOLD 04:50
PROVIDERS: ADMIT Internal Medicine; ATTEND Internal Medicine
DX: J96.00 Acute respiratory failure, unspecified whether with hypoxia or hypercapnia (principal); J44.0 Chronic obstructive pulmonary disease with (acute) lower respiratory infection; D64.9 Anemia, unspecified; E11.9 Type 2 diabetes mellitus without complications; E03.9 Hypothyroidism, unspecified; I10 Essential (primary) hypertension; J98.11 Atelectasis; J20.9 Acute bronchitis, unspecified; I25.10 Atherosclerotic heart disease of native coronary artery without angina pectoris; R94.5 Abnormal results of liver function studies; N28.9 Disorder of kidney and ureter, unspecified; Z95.5 Presence of coronary angioplasty implant and graft; I25.2 Old myocardial infarction; Z87.891 Personal history of nicotine dependence
CPT/HCPCS: 36415; 36600; 71045; 80053; 81001; 82803; 83605; 84145; 84484; 85018; 85025; 85610; 85730; 87040; 87077; 87088; 87186; 93005; 94640; 94760; 99291; J1170; J1644; J1815; J1956; J7030